=== PATIENT | female | born 1955 | race Caucasian/White ===

== ENCOUNTER → 2017-12-06 11:39 | Outpatient (CLI) | payer BC, SELFPAY ==
[2017-12-06 14:18] LABS: Absolute Lymphocyte Count 2.21 X10^3/ul (0.83-4.51); Absolute Neutrophil Count 3.6 X10^3/uL (2.0-7.7); Basophil# 0.04 X10^3/uL; Basophil% 0.6 % (0-1); Eosinophil# 0.23 X10^3/uL; Eosinophils% 3.5 % (0-5); Hematocrit 38.4 % (37-47); Lymphocyte # 2.21 X10^3/ul (4.0); Lymphocyte % 33.2 % (19-41); Mean Corp Hgb Conc 33.9 g/gl (32-36); Mean Corpuscular Hgb 30.9 pg (27.0-32.0); Mean Corpuscular Volume 91.2 fL (81-99); Mean Platelet Vol. 10.9 fl (6.2-12.0); Monocyte# 0.56 X10^3/uL; Monocyte% 8.4 % (0-10); Neutrophil # 3.59 X10^3/uL (2.7-7.7); Neutrophil % 53.8 % (47-70); POSITIVE COUNT NO; POSITIVE DIFFERENTIAL NO; POSITIVE MORPHOLOGY NO; Platelet Count 232 K/mm3 (150-450); RBC Distribution Width CV 12.9 % (11.6-14.6); RBC Distribution Width SD 42.1 fl (35.1-43.9); Red Blood Count 4.21 M/mm3 (4.2-5.4); White Blood Count 6.7 K/mm3 (4.4-11.0)
[2017-12-06 14:29] LABS: AST(SGOT) 24 U/L (15-37); Alanine Aminotransfer ALT/SGPT 33 U/L (13-56); Albumin, Serum 3.6 g/dL (3.2-5.0); Alkaline Phosphatase 73 U/L (45-117); Anion Gap 7 (5-15); BUN 20 mg/dL (7-18); BUN/Creat Ratio 22.7 RATIO (10-20); Calcium,Total 8.6 mg/dL (8.5-10.1); Chloride 103 mmol/L (98-107); Creatinine, Serum 0.88 mg/dL (0.55-1.02); EST Glomerular Filtration Rate 69 mL/min (>60); Est Glom Filt Rate - Afr Amer 83 mL/min (>60); Globulin 3.5 g/dL (2.2-4.2); Glucose 116 mg/dL (74-106); Potassium 3.6 mmol/L (3.5-5.1); Protein, Total 7.1 g/dL (6.4-8.2); Sodium Level 141 mmol/L (136-145)
== END ==
PROVIDERS: Family Provider Nurse Practitioner Family; PCP Nurse Practitioner Family; Visit Provider Internal Medicine Rheumatology
DX: L40.59 Other psoriatic arthropathy (principal); M79.7 Fibromyalgia; M18.11 Unilateral primary osteoarthritis of first carpometacarpal joint, right hand; M18.12 Unilateral primary osteoarthritis of first carpometacarpal joint, left hand; I10 Essential (primary) hypertension; E78.5 Hyperlipidemia, unspecified; K76.0 Fatty (change of) liver, not elsewhere classified; Z79.899 Other long term (current) drug therapy
CPT/HCPCS: 36415; 80053; 85025

== ENCOUNTER → 2018-05-19 11:57 | Outpatient (CLI) | payer BC, SELFPAY ==
[2018-05-19 14:04] LABS: Absolute Lymphocyte Count 1.94 X10^3/ul (0.83-4.51); Absolute Neutrophil Count 4.4 X10^3/uL (2.0-7.7); Basophil# 0.03 X10^3/uL; Basophil% 0.4 % (0-1); Eosinophil# 0.26 X10^3/uL; Eosinophils% 3.6 % (0-5); Hematocrit 39.3 % (37-47); Lymphocyte # 1.94 X10^3/ul (4.0); Lymphocyte % 27.2 % (19-41); Mean Corp Hgb Conc 33.1 g/gl (32-36); Mean Corpuscular Hgb 30.2 pg (27.0-32.0); Mean Corpuscular Volume 91.2 fL (81-99); Mean Platelet Vol. 10.8 fl (6.2-12.0); Monocyte# 0.49 X10^3/uL; Monocyte% 6.9 % (0-10); Neutrophil # 4.38 X10^3/uL (2.7-7.7); Neutrophil % 61.5 % (47-70); Platelet Count 258 K/mm3 (150-450); RBC Distribution Width CV 13.4 % (11.6-14.6); RBC Distribution Width SD 43.9 fl (35.1-43.9); Red Blood Count 4.31 M/mm3 (4.2-5.4); White Blood Count 7.1 K/mm3 (4.4-11.0)
[2018-05-19 14:06] LABS: POSITIVE COUNT NO; POSITIVE DIFFERENTIAL NO; POSITIVE MORPHOLOGY NO
[2018-05-19 14:12] LABS: ALB/GLOB Ratio 0.9 RATIO (0.9-2.4); AST(SGOT) 26 U/L (15-37); Alanine Aminotransfer ALT/SGPT 37 U/L (13-56); Albumin, Serum 3.6 g/dL (3.2-5.0); Alkaline Phosphatase 76 U/L (45-117); Anion Gap 8 (5-15); BUN 17 mg/dL (7-18); BUN/Creat Ratio 18.3 RATIO (10-20); Chloride 102 mmol/L (98-107); Cholesterol 146 mg/dL (200); Creatinine, Serum 0.93 mg/dL (0.55-1.02); EST Glomerular Filtration Rate 65 mL/min (>60); Est Glom Filt Rate - Afr Amer 78 mL/min (>60); Globulin 3.8 g/dL (2.2-4.2); Glucose 125 mg/dL (74-106); High Density Lipoprotein 35 mg/dL; Protein, Total 7.4 g/dL (6.4-8.2); Sodium Level 142 mmol/L (136-145); Triglycerides 166 mg/dL; Very Low Density Lipoprotein 33 mg/dL (5-40)
[2018-05-19 14:19] LABS: Hemoglobin A1c 6.1 % (4.2-6.3)
== END ==
PROVIDERS: Family Provider Nurse Practitioner Family; PCP Nurse Practitioner Family; Visit Provider Internal Medicine Rheumatology
DX: L40.59 Other psoriatic arthropathy (principal); M18.0 Bilateral primary osteoarthritis of first carpometacarpal joints; M79.7 Fibromyalgia; K76.0 Fatty (change of) liver, not elsewhere classified; I11.0 Hypertensive heart disease with heart failure; I50.9 Heart failure, unspecified; E11.9 Type 2 diabetes mellitus without complications; K57.90 Diverticulosis of intestine, part unspecified, without perforation or abscess without bleeding; E78.5 Hyperlipidemia, unspecified; I87.2 Venous insufficiency (chronic) (peripheral); Z79.899 Other long term (current) drug therapy
CPT/HCPCS: 36415; 80053; 80061; 83036; 85025

== ENCOUNTER → 2018-05-30 12:10 | Outpatient (CLI) | payer BC, SELFPAY ==
--- NOTE | 2018-05-30 12:14 | RAD_ITS ---
STUDY: X-RAY - PELVIS AND RIGHT HIP REASON FOR EXAM: Female, 63 years old. Pain. Fall. TECHNIQUE: Radiological exam, hip, unilateral, with pelvis when performed; 2 or 3 views. COMPARISON: None. FINDINGS: There is a non-specific bowel gas pattern. Normal visualized soft tissue structures. Normal bilateral iliac wings, sacroiliac joints and visualized sacrum. Normal bilateral superior and inferior pubic rami. Normal pubic symphysis. Normal bilateral ischial tuberosities. Normal visualized femoral head. Normal acetabulum. Normal hip joint. RAD/HIP, UNI W/ Pelvis 2-3 Views IMPRESSION: Normal x-ray examination of the pelvis and hip. Electronically Signed: Wesley Navarro MD at 23:18 EDT , Service support ,
== END ==
PROVIDERS: Family Provider Nurse Practitioner Family; PCP Nurse Practitioner Family; Referring Provider Internal Medicine Rheumatology; Visit Provider Internal Medicine Rheumatology
DX: L40.59 Other psoriatic arthropathy (principal); M18.0 Bilateral primary osteoarthritis of first carpometacarpal joints; M79.7 Fibromyalgia; Z79.899 Other long term (current) drug therapy
CPT/HCPCS: 73502

== ENCOUNTER → 2018-07-10 12:32 | Outpatient (CLI) | payer BC, SELFPAY ==
--- NOTE | 2018-07-10 12:37 | CDU_ITS ---
Reason For Study: DIZZINESS Rt. Velocities/BP Lt. Velocities/BP Prox CCA 84.2/9.3 cm/sec. Prox CCA 121.0/18.8 cm/sec. Mid CCA 106.0/15.7 cm/sec. Mid CCA 115.0/21.1 cm/sec. Dist CCA 92.0/12.9 cm/sec. Dist CCA 96.7/16.4 cm/sec. Prox ICA 103.0/16.5 cm/sec. Prox ICA 76.2/18.9 cm/sec. Mid ICA 82.7/14.1 cm/sec. Mid ICA 75.2/18.3 cm/sec. Dist ICA 96.2/24.6 cm/sec. Dist ICA 62.4/18.1 cm/sec. Rt. ICA/CCA = .97. Lt. ICA/CCA = .66. Prox ECA 134.0/12.6 cm/sec. Prox ECA 108.0/11.5 cm/sec. Rt. Vert. 52.8/12.3 cm/sec. Lt. Vert. 58.0/12.9 cm/sec. Right Extracranial There is heterogeneous, irregular atherosclerotic plaque noted in the right common carotid artery. There is heterogeneous, irregular atherosclerotic plaque noted in the right internal carotid artery. There is intimal thickening but no significant atherosclerotic plaque noted in the right external carotid artery. Antegrade flow is noted in the right vertebral artery. Left Extracranial There is intimal thickening but no significant atherosclerotic plaque noted in the left common carotid artery. There is heterogeneous, irregular atherosclerotic plaque noted in the left internal carotid artery. There is heterogeneous, smooth atherosclerotic plaque noted in the left external carotid artery. Antegrade flow is noted in the left vertebral artery. Procedure Carotid Duplex [id number]. Exam performed in department. Interpretation Summary Minimal plague at the proximal right internal carotid with <50% stenosis. Minimal plague within the left internal carotid with <50% stenosis. Normal flow bilateral external carotids Patent and antegrade vertebrals bilaterally Ordering Physician: Darcy Messina Referring Physician: Darcy Messina Performed By: Rubina Dowd RVT
== END ==
PROVIDERS: Family Provider Nurse Practitioner Family; PCP Nurse Practitioner Family; Referring Provider Physician Assistant Medical; Visit Provider Physician Assistant Medical
DX: R55 Syncope and collapse (principal); R42 Dizziness and giddiness; I10 Essential (primary) hypertension; E78.5 Hyperlipidemia, unspecified; I42.8 Other cardiomyopathies; R00.2 Palpitations
CPT/HCPCS: 93880

== ENCOUNTER → 2018-07-10 12:36 | Outpatient (REF) | payer BC, SELFPAY | LOC: CVS 12:36 | PROVIDERS: Family Provider Nurse Practitioner Family; PCP Nurse Practitioner Family; Referring Provider Physician Assistant Medical; Visit Provider Physician Assistant Medical | DX: R55 Syncope and collapse (principal) | CPT/HCPCS: 93270 ==

== ENCOUNTER 2018-08-11 11:24 | Day surgery (SDC) | payer BC, SELFPAY ==
[2018-08-07 09:27] LABS: Bacteria 0 SEEN /hpf (None Seen); Mucous, Urine 0 SEEN /hpf (<or=2+); Red Blood Cells-Urine 0 SEEN /hpf (0-5)
[2018-08-07 09:54] LABS: Hematocrit 40.2 % (37-47); Hemoglobin 13.1 g/dl (12.0-15.0); Mean Corp Hgb Conc 32.6 g/gl (32-36); Mean Corpuscular Hgb 29.4 pg (27.0-32.0); Mean Corpuscular Volume 90.1 fL (81-99); Mean Platelet Vol. 10.4 fl (6.2-12.0); Platelet Count 214 K/mm3 (150-450); RBC Distribution Width CV 13.8 % (11.6-14.6); RBC Distribution Width SD 45.2 fl (35.1-43.9); Red Blood Count 4.46 M/mm3 (4.2-5.4); White Blood Count 5.2 K/mm3 (4.4-11.0)
[2018-08-07 09:55] LABS: Scan Indicated on CBC? Y/N NO
[2018-08-07 09:59] LABS: Prothrombin Time (Protime)PT. 12.7 SECONDS (11.7-14.9)
--- NOTE | 2018-08-07 10:00 | RAD_ITS ---
STUDY: X-RAY CHEST REASON FOR EXAM: Female, 63 years old. Preoperative evaluation. TECHNIQUE: PA and lateral views of the chest. COMPARISON: Comparison is made with prior study dated March 04, 2017. FINDINGS: A loop recorder device is seen overlying the lower thoracic region. The lungs are clear and expanded. There is no demonstrated pleural abnormality. There is borderline cardiomegaly. Normal mediastinum and sarah. Normal visualized pulmonary arteries. There is atherosclerotic calcification of the aortic arch with tortuosity. There are diffuse degenerative changes of the visualized thoracic spine. Normal visualized ribs, clavicles, and shoulders. Surgical clips are seen in the epigastric region. RAD/Chest PA and Lateral IMPRESSION: Borderline cardiomegaly. Loop recording device is seen in the lower thoracic region. Electronically Signed: Ashkan Geiger MD at 12:42 EST Tel [phone], Service support ,
[2018-08-07 10:14] LABS: Color, Urine Yellow (Yellow); Glucose, Dipstick Normal (Normal); Ketone-Dipstick Negative (Negative); Leukocyte Esterase-Dipstick 100 /ul (Negative); Nitrite-Dipstick Negative (Negative); Occult Blood-Urine Negative /ul (Negative); Protein-Dipstick Negative (Negative); Urine Bilirubin Dipstick Negative (Negative); Urine Clarity Sl. Cloudy (Clear); Urine Urobilinogen Normal (Normal)
[2018-08-07 10:19] LABS: BUN 23 mg/dL (7-18); Creatinine, Serum 0.83 mg/dL (0.55-1.02); Glucose 233 mg/dL (74-106)
[2018-08-07 10:20] LABS: Anion Gap 8 (5-15); BUN/Creat Ratio 27.6 RATIO (10-20); Calcium,Total 8.7 mg/dL (8.5-10.1); Chloride 104 mmol/L (98-107); EST Glomerular Filtration Rate 73 mL/min (>60); Est Glom Filt Rate - Afr Amer 89 mL/min (>60); Potassium 3.9 mmol/L (3.5-5.1); Sodium Level 141 mmol/L (136-145)
[2018-08-07 10:24] LABS: Squamous Epithelial Cells - UA 0-5 SEEN /hpf (5-10); White Blood Cells 0-5 SEEN /hpf (0-5)
[2018-08-08 13:43] VITALS: BMI 37.9
[2018-08-11] VITALS (12 sets, daily range): BP systolic 124–155; BP diastolic 68–97; PULSE 64–68; RESP 14–18; TEMP 36.4–37.3; O2SAT 92–96; BMI 37.8
--- NOTE | 2018-08-11 16:06 | CL.IE_ITS ---
Patient: RICH EDUARDO Study Date: 08/11/2018 Performing: Cristino Villaseñor MD : 1955 Age: 63 Gender: female PROCEDURES PERFORMED [id number] PACER INSERT+DUAL LEADS INDICATIONS complete heart block PROCEDURE DETAILS The patient was brought to the Catheterization Lab in the postabsorptive nonsedated state. Infor med consent was obtained prior to the procedure. Local anesthetic was given subcutaneously to the le ft upper chest area with Lidocaine 2%. Incision was made to the left upper chest. A peel-away sheath was inserted into the left subclavian vein. PPM ventricular lead was inserted / positioned to right v entricular apex. A peel-away sheath was inserted into the left subclavian vein - 7fr. PPM atrial lead testing performed. The Ventricular PM lead sutured in place with 3-0 Silk. The Atrial lead sutured i n place with 3-0 Silk. Device pocket was irrigated with antibiotic- Bacitracin. PPM generator was att ached to the lead(s) and inserted into the pocket. Subcutaneous closure was completed with 3-0 Vicryl . Skin closure was completed with 4-0 Vicryl. The patient tolerated the procedure well. Estimated Blood Loss: 25 ml's IMPLANTED / EX-PLANTED DEVICES IMPLANTED DEVICE(S): PPM Ventricular lead - Census Taker: Medtronic, Model # [id number] , Serial # [id number] PPM Atrial lead - Census Taker: Medtronic, Model # Medtronic , Serial # [id number] PPM Generator - Census Taker: Medtronic, Model # Quiana XT DR THIERNO Frances [id number] , Serial # [id number] DEVICE PARAMETERS ATRIAL LEAD PARAMETERS: P wave- 3.5 (mV) Current- 3.6 (mA) threshold- 1.8 (V) impedence- 609 (OHMS) VENTRICULAR LEAD PARAMETERS: R wave- 7.5 (mV) Current- 0.3 (mA) threshold- 0.5 (V) impedence- 1721 (OHMS) DEVICE PARAMETERS: Mode- DDD Lower rate- 60 Upper rate- 130 CONCLUSIONS / RECOMMENDATIONS Device Conclusions: Successful implantation of a dual chamber pacemaker Device Recommendations: Follow up with Primary Care Physician PROCEDURE MEDICATIONS Versed 1 mg IV Fentanyl 50 mcg IV Versed 1 mg IV Fentanyl 25 mcg IV Versed 1 mg IV Fentanyl 25 mcg IV Oxygen: 2 L/min via nasal cannula Antibiotic given in appropriate timeframe. Signed By Cristino Villaseñor MD On 08/11/2018 16:05:53 Cristino Villaseñor MD
[2018-08-11] MEDS: Glimepiride 1 MG Tablet PO (18:13)
[2018-08-11] MEDS: Furosemide 40 MG Tablet PO (18:13)
[2018-08-11] MEDS: Gabapentin 600 MG Tablet PO (18:13)
[2018-08-11] MEDS: Atorvastatin Calcium 20 MG Tablet PO (22:38)
[2018-08-11] MEDS: Carvedilol 12.5 MG Tablet PO (22:38)
[2018-08-12 03:21] VITALS: PULSE 65
[2018-08-12] MEDS: Acetaminophen 325 MG Tablet PO (04:00)
[2018-08-12 04:04] VITALS: BP 140/70; PULSE 60; RESP 18; TEMP 36.6; O2SAT 95
--- NOTE | 2018-08-12 05:55 | RAD_ITS ---
STUDY: X-RAY CHEST REASON FOR EXAM: Female, 63 years old. Status post pacemaker, rule out pneumothorax TECHNIQUE: Single AP portable view of the chest. COMPARISON: 08/07/2018 FINDINGS: Left-sided chest wall pacemaker device has been placed. Appropriate repositioning. No evidence of pneumothorax. Lungs are mildly hypoinflated. There is borderline cardiomegaly. Normal mediastinum and sarah. Normal visualized pulmonary arteries. Normal visualized aortic arch and descending thoracic aorta. Normal visualized thoracic spine. Normal visualized ribs, clavicles, and shoulders. There is no demonstrated abnormality of the visualized soft tissue structures of the upper abdomen. RAD/Chest 1 View IMPRESSION: No evidence of pneumothorax. Left chest wall pacing device. Electronically Signed: Christopher Delgado DO at 7:51 EST Tel , Service support ,
--- NOTE | 2018-08-12 05:55 | RAD_ITS ---
STUDY: X-RAY CHEST REASON FOR EXAM: Female, 63 years old. Status post pacemaker, rule out pneumothorax TECHNIQUE: PA and lateral views of the chest. COMPARISON: 08/07/2018 FINDINGS: Left chest wall pacing device has been placed with appropriately positioning. There is no evidence of a pneumothorax. The lungs are clear and expanded. There is no demonstrated pleural abnormality. There is borderline cardiomegaly. Normal mediastinum and sarah. Normal visualized pulmonary arteries. Normal visualized aortic arch and descending thoracic aorta. Normal visualized thoracic spine. Normal visualized ribs, clavicles, and shoulders. There is no demonstrated abnormality of the visualized soft tissue structures of the upper abdomen. RAD/Chest PA and Lateral IMPRESSION: Clear lungs. Placement of left chest wall pacing device without clearly evident pneumothorax Electronically Signed: Christopher Delgado DO at 7:50 EST Tel , Service support ,
[2018-08-12 07:00] VITALS: PULSE 60
[2018-08-12 08:27] VITALS: BP 155/66; PULSE 63; RESP 16; TEMP 36.8; O2SAT 94
[2018-08-12] MEDS: DULoxetine Hcl 20 MG Capsule 60 MG PO (08:30)
[2018-08-12] MEDS: Lisinopril 5 MG Tablet PO (08:30)
[2018-08-12] MEDS: Furosemide 40 MG Tablet PO (08:30)
[2018-08-12] MEDS: Magnesium Oxide 400 MG Tablet PO (08:30)
[2018-08-12] MEDS: Gabapentin 600 MG Tablet PO (08:31)
[2018-08-12] MEDS: Glimepiride 1 MG Tablet PO (08:31)
[2018-08-12] MEDS: Carvedilol 12.5 MG Tablet PO (08:31)
[2018-08-12] MEDS: Aspirin 81 MG TAB.CHEW PO (08:31)
--- NOTE | 2018-08-12 08:33 | PCM.PN.CARD ---
Subjectve: Patient seen and evaluated. Appears to be doing well. Objective: Vital Signs Temp Pulse Resp BP Pulse Ox 98.2 F 63 16 155/66 H 94 08/12/18 08:27 08/12/18 08:27 08/12/18 08:27 08/12/18 08:27 08/12/18 08:27 Oxygen Delivery Method Room Air Weight: 234 lb 15.851 oz Body Mass Index (BMI) 37.8 Intake and Output for Last 24 Hours 08/10/18 08/11/18 08/12/18 23:59 23:59 23:59 Intake Total 240 / 240 480 / 480 Balance 240 / 240 480 / 480 General: Awake, Alert, Oriented x 3 HEENT: PERRL, EOMI, Sclera Non Icteric Neck: Supple, Good ROM, No Lymph Node Enlargement Lungs: Clear to auscultation Cardiovascular: Regular Rhythm, Normal S1, Normal S2, No Murmurs, No Rubs, No Gallops Vascular: No Carotid Bruits, Normal Femoral Pulses, Normal Radial Pulses, Normal Dorsalis Pedal Pulse, Normal Posterior Tibial Pulses Abdomen: Bowel Sounds Present, Soft, Non Tender, No HSM, No Organomegaly Extremities: No Cyanosis, No Clubbing, No edema Neurological: No Focal Motor or Sensory Deficit Rhythm: EKG: ECHO: Stress Test: Cardiac Cath: PCI: CT Surgery: Holter monitor: EPS: PPM: CXR: Chest CT Scan: Medical Necessity - Tobacco Use Smoking Status: Former smoker Tobacco Use: Non-smoker Assessment/Plan 1. Status post permanent pacemaker implantation Patient underwent permanent pacemaker implantation with no evidence of pneumothorax. Pacer check this morning demonstrates adequate pacer function. Will discharge for outpatient follow-up
--- NOTE | 2018-08-12 08:37 | DCINST_ITS ---
Discharge Diet: No Restrictions Discharge Activity: May Not Drive May resume sexual activity in: 2 weeks Call your doctor if your incision/area has: Continuous Slow Oozing, Sudden Increased Bleeding, Increased Pain/ Swelling, Increased Redness, Foul Smelling Discharge, Swelling at the incision site Call your doctor if you observe: Fever of 101 or Higher, Shortness of breath, Dizziness, Fainting spells, Swelling in the ankles, Chest pain, Prolonged hiccoughing, Increased palpitations (irregular heartbeat) Suture Line Care: Avoid Pulling/Pushing, Avoid Pinching/Bending Cleanse incision/area with: Do not get Incision Wet, Keep Dressing Clean & Dry Additional Dressing/Incision Instructions:: When dressing is removed, wash and dry incision. Keep covered with a light bandage if it is rubbing against your clothing. Do not cover the incision with an airtight bandage. Change the bandage daily. Do not remove steri strips. The strips will fall off on their own. Additional Instructions: Signs and Symptoms to Report to Your Doctor at Once - call your doctor's office or Doctor's Registry ([phone]) Call 611 or go to the nearest Emergency Department if you feel you need urgent care. *Infection (fever, increased redness or swelling at the incision site, drainage from the incision increased pain at the pacemaker site) *Shortness of breath *Dizziness *Fainting spells *Swelling in the ankles *Chest pain *Prolonged hiccoughing *Increased palpitaitons (irregular heartbeat) Medications: Take your pain medication as directed. Refer to your discharge instruction sheet for a list of medications you are to take. Allergies/Adverse Reactions: Allergies doxycycline [From Vibramycin] Allergy (Verified 08/07/18 10:39) Unknown Penicillins [PCN] Allergy (Verified 08/07/18 10:39) Hives clonidine Adverse Reaction (Verified 08/07/18 10:39) Vomiting codeine Adverse Reaction (Verified 08/07/18 10:39) Vomiting Medications to take at Discharge Glimepiride [Amaryl] 1 mg PO BID 12/28/16 Potassium Chloride 10 meq PO DAILY 12/28/16 Aspirin [Aspirin, Baby] 81 mg PO DAILY@0800 #90 tab.chew 12/31/16 Atorvastatin Calcium [Lipitor] 20 mg PO QHS #90 tab 12/31/16 Furosemide [Lasix] 40 mg PO BID@1000,1800 #90 tab 12/31/16 adalimumab 40 mg/0.8 mL subcutaneous syringe kit 40 mg SC Q2W 07/29/17 celecoxib 100 mg capsule 100 mg PO BID 07/29/17 carvedilol 12.5 mg tablet 12.5 mg PO BID #180 tab 01/21/18 lisinopril 5 mg tablet 5 mg PO DAILY #90 tab 01/21/18 cholecalciferol (vitamin D3) 5,000 unit capsule 5,000 unit PO DAILY 07/07/18 cyanocobalamin (vit B-12) 500 mcg tablet 500 mcg PO DAILY 07/07/18 duloxetine 20 mg capsule,delayed release 60 mg PO DAILY cap 07/07/18 flaxseed oil 1,000 mg capsule 1,000 mg PO DAILY 07/07/18 gabapentin 300 mg capsule 600 mg PO TID cap 07/07/18 magnesium oxide 400 mg capsule 400 mg PO DAILY cap 07/07/18 omeprazole 20 mg capsule,delayed release 20 mg PO BID cap 07/07/18 pyridoxine (vitamin B6) 50 mg capsule 100 mg PO DAILY cap 07/07/18 turmeric 400 mg capsule 800 mg PO DAILY cap 08/07/18 Primary Care Physician: Brittanie Wheeler NP-C [Primary Care Provider] - Test Results: Test results from this visit will be discussed in further detail at your follow- up appointment, if applicable. When: PACER CHECK 08/25 AT 9:30 AM Proposed Discharge Date: 08/12/18
--- OUTSIDE RECORDS SUMMARY | 2018-11-13 01:12 | XMS RPT_ITS ---
:1955 Author Organization [place] Support Name Relationship Address Phone BHUMI CASILLASITHA Unavailable [address] + [place] [id number] JHONNY EDUARDO Unavailable [address] + [place] [address] R Unavailable Unavailable Unavailable SONJA, MIRIAN Unavailable [address] + [place] [address] JHONNY EDUARDO Unavailable [address] + [place] [address] R Unavailable Unavailable Unavailable SONJA, MIRIAN Unavailable [address] + [place] [address] JHONNY EDUARDO Unavailable [address] + [place] [address] R Unavailable Unavailable Unavailable SONJA, MIRIAN Unavailable [address] + [place] [address] JHONNY EDUARDO Unavailable [address] + [place] [address] R Unavailable Unavailable Unavailable SONJA, MIRIAN Unavailable [address] + [place] [address] NEJHONNY SIMMONS Unavailable [address] + [place] [address] R Unavailable Unavailable Unavailable SONJA, MIRIAN Unavailable [address] + [place] [address] NEJHONNY SIMMONS Unavailable [address] + [place] [address] R Unavailable Unavailable Unavailable NEJHONNY SIMMONS Unavailable Unavailable + NETROY JHONNY Unavailable Unavailable + NETROY JHONNY Unavailable Unavailable + SONJA, MIRIAN Unavailable [address] + [place] [address] NEECE, JHONNY Unavailable [address] + [place] [address] R Unavailable Unavailable Unavailable SONJA, MIRIAN Unavailable [address] + [place] [address] NEECE, JHONNY Unavailable [address] + [place] [address] R Unavailable Unavailable Unavailable SONJA, MIRIAN Unavailable [address] + [place] [address] NEECE, JHONNY Unavailable [address] + [place] [address] R Unavailable Unavailable Unavailable SONJA, MIRIAN Unavailable [address] + [place] [address] NEECE, JHONNY Unavailable [address] + [place] [address] R Unavailable Unavailable Unavailable SONJA, MIRIAN Unavailable [address] + [place] [address] NEECE, JHONNY Unavailable [address] + [place] [address] R Unavailable Unavailable Unavailable NEECE, JHONNY Unavailable Unavailable + SONJA, MIRIAN Unavailable [address] + [place] [address] NEECE, JHONNY Unavailable [address] + [place] [address] R Unavailable Unavailable Unavailable NEECE, JHONNY Unavailable Unavailable + NEECE, JHONNY Unavailable Unavailable + SONJA, MIRIAN Unavailable [address] + [place] [address] NEECE, JHONNY Unavailable [address] + [place] [address] R Unavailable Unavailable Unavailable NEECE, JHONNY Unavailable Unavailable + SONJA, MIRIAN Unavailable [address] + [place] [address] NEECE, JHONNY Unavailable [address] + [place] [address] R Unavailable Unavailable Unavailable NEECE, JHONNY Unavailable Unavailable + NEECE, JHONNY Unavailable Unavailable + NEECE, JHONNY Unavailable Unavailable + NEECE, JHONNY Unavailable Unavailable + NEECE, JHONNY Unavailable Unavailable + NEECE, JHONNY Unavailable Unavailable + NEECE, JHONNY Unavailable Unavailable + NOT GIVEN Unavailable [address] + [place], [place] [id number] NEECE, JHONNY Unavailable Unavailable + NEECE, JHONNY Unavailable Unavailable + NOT GIVEN Unavailable [address] + [place], [place] [id number] NEECE, JHONNY Unavailable Unavailable + NOT GIVEN Unavailable [address] + [place], [place] [phone] NEECE, JHONNY Unavailable Unavailable + NOT GIVEN Unavailable [address] + [place], [place] [id number] NEECE, JHONNY Unavailable Unavailable + BHUMI CASILLASITHA Unavailable [address] + [place] [address] NEECE, JHONNY Unavailable [address] + [place] [address] R Unavailable Unavailable Unavailable SONJA, MIRIAN Unavailable [address] + [place] [address] NEECE, JHONNY Unavailable [address] + [place] [address] R Unavailable Unavailable Unavailable Care Team Providers Name Role Phone [place], Sarai January Admitting Unavailable [place], Sarai January Attending Unavailable [place], Sarai January Primary Care Unavailable [place], Sarai January Admitting Unavailable [place], Sarai January Attending Unavailable [place], Sarai January Primary Care Unavailable [place], Sarai January Admitting Unavailable [place], Sarai January Attending Unavailable [place], Sarai January Primary Care Unavailable [place], Sarai January Consulting Unavailable [place], Sarai January Attending Unavailable [place], Sarai January Primary Care Unavailable [place], Sarai January Admitting Unavailable [place], Sarai January Primary Care Unavailable Harish Orozco Admitting Unavailable Harish Orozco Attending Unavailable Wyatt Sharma Consulting Unavailable BloomingtonSarai January Primary Care Unavailable [place] Sarai January Admitting Unavailable [place], Sarai January Attending Unavailable [place] Sarai January Primary Care Unavailable Bloomingtona January Attending Unavailable BloomingtonSarai January Primary Care Unavailable BloomingtonJanuary Admitting Unavailable [place] Sarai January Attending Unavailable [place] Sarai January Primary Care Unavailable Salome Cottrell Admitting Unavailable Salome Cottrell Attending Unavailable BloomingtonJanuary Referring Unavailable BloomingtonSarai January Primary Care Unavailable [place] Sarai January Consulting Unavailable Kasi, [place] Attending Unavailable Kasi, Cristino Referring Unavailable [place], Sarai DRESS FITTER-C Primary Care Unavailable Salome Mason Attending Unavailable [place], Sarai DRESS FITTER-C Referring Unavailable Vellanki, Tessie Attending Unavailable Vellanki, Tessie Referring Unavailable [place], Sarai DRESS FITTER-C Primary Care Unavailable Kasi, [place] Attending Unavailable Mateus Whalen Referring Unavailable [place], Sarai DRESS FITTER-C Primary Care Unavailable Vellanki, Tessie Attending Unavailable Vellanki, Tessie Referring Unavailable [place], Sarai DRESS FITTER-C Primary Care Unavailable Marybeth Simpson Attending Unavailable [place], Sarai DRESS FITTER-C Referring Unavailable Kasi, Cristino Attending Unavailable Kasi, [place] Referring Unavailable [place], Sarai DRESS FITTER-C Primary Care Unavailable Kasi, [place] Consulting Unavailable Marybeth Simpson Attending Unavailable [place], Sarai DRESS FITTER-C Referring Unavailable Kasi, [place] Attending Unavailable Darcy Messina Referring Unavailable Kasi, Cristino Attending Unavailable Kasi, Cristino Referring Unavailable Vellanki, Tessie Attending Unavailable Vellanki, Tessie Referring Unavailable [place], Sarai DRESS FITTER-C Primary Care Unavailable Darcy Messina Attending Unavailable [place], Sarai DRESS FITTER-C Referring Unavailable Darcy Messina Attending Unavailable Darcy Messina Referring Unavailable [place], Sarai DRESS FITTER-C Primary Care Unavailable Darcy Messina Attending Unavailable Darcy Messina Referring Unavailable [place], Sarai DRESS FITTER-C Primary Care Unavailable Alex Tafoya Attending Unavailable Darcy Messina Referring Unavailable [place], Sarai DRESS FITTER-C Primary Care Unavailable Darcy Messina Consulting Unavailable Miya Duenas Attending Unavailable Aba Dutta Attending Unavailable Aba Dutta Admitting Unavailable Aba Dutta Admitting Unavailable Aba Dutta Attending Unavailable Aba Dutta Admitting Unavailable LeeAba long Attending Unavailable Aba Dutta Admitting Unavailable bAa Dutta Attending Unavailable SALOME COTTRELL MD. Attending Unavailable ABA DUTTA Attending Unavailable CRANE HILL SARAI JANUARY Primary Care Unavailable ABA DUTTA Attending Unavailable CRANE HILL SARAI JANUARY Primary Care Unavailable ABA DUTTA Attending Unavailable CRANE HILLSARAI JUNE Primary Care Unavailable ABA DUTTA Attending Unavailable CRANE HILL SARAI JUNE Primary Care Unavailable WYATT SHARMA Attending Unavailable CRANE HILL SARAI JANUARY Primary Care Unavailable WYATT SHARMA Attending Unavailable CRANE HILL SARAI JANUARY Primary Care Unavailable OLAYINKA SANCHEZ Attending Unavailable CRANE HILLSARAI JUNE Primary Care Unavailable WYATT SHARMA Attending Unavailable CRANE HILL SARAI JANUARY Primary Care Unavailable WYATT SHARMA Attending Unavailable CRANE HILL SARAI JANUARY Primary Care Unavailable GAEL GIBSON Attending Unavailable CRANE HILL SARAI JUNE Primary Care Unavailable WYATT SHARMA Attending Unavailable CRANE HILL SARAI JANUARY Primary Care Unavailable PROBLEMS PROBLEMS DATE TYPE CONDITION / CODE ATTENDING STATUS SOURCE Unknown I44.2 - Marybeth Simpson Active [facility] Atrioventricular Community block, complete / Hospital I44.2(ICD-10) Repository Unknown I45.5 - Other Marybeth Simpson Active [facility] 9 specified heart block Community / I45.5(ICD-10) Hospital Repository Unknown 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 - Other Marybeth Simpson Active [facility] 9 cardiomyopathies / Community I42.8(ICD-10) Hospital Repository Unknown Z95.0 - Presence of Marybeth Simpson Active [facility] 9 cardiac pacemaker / Community Z95.0(ICD-10) Hospital Repository Admitting Pain in left foot / WYATT SHARMA [place] [address] diagnosis M79.672(ICD-10) LONG Three Repository Unknown I10 - Essential Alex Tafoya Active [facility] 8 (primary) Community hypertension / Hospital I10(ICD-10) Repository Unknown R42 - Dizziness and Alex Tafoya Active [facility] giddiness / Community R42(ICD-10) Hospital Repository Unknown R00.2 - Palpitations Alex Tafoya Active [facility] / R00.2(ICD-10) [facility] Repository Unknown E78.5 - CebuAlex caldera Active [facility] 8 Hyperlipidemia, Community unspecified / Hospital E78.5(ICD-10) Repository Unknown R55 - Syncope and Kasi, Cristino Active [facility] 9 collapse / Community R55(ICD-10) Hospital Repository Admitting Displaced bimalleolar WYATT SHARMA [facility] 8 diagnosis fracture of left LONG Three lower leg, subsequent Repository encounter for closed fracture with routine healing / S82.842D(ICD-10) Admitting Unilateral primary WYATT SHARMA [facility] 8 diagnosis osteoarthritis, right [facility] Three hip / M16.11(ICD-10) Repository Unknown L40.59 - Other Vellantristan Tessie Active [facility] 8 psoriatic arthropathy Community / L40.59(ICD-10) Hospital Repository Unknown Z79.899 - Other long Veldustin Tessie Active [facility] 8 term (current) drug Community therapy / Hospital Z79.899(ICD-10) Repository Unknown M79.7 - Fibromyalgia Vellantristan Tessie Active [facility] 8 / M79.7(ICD-10) [facility] Hospital Repository Unknown M18.11 - Unilateral Vellanki, Tessie Active [facility] 8 primary Community osteoarthritis of Hospital first carpometacarpal Repository joint, right hand / M18.11(ICD-10) Unknown M18.12 - Unilateral Vellanki, Tessie Active [facility] 8 primary Community osteoarthritis of Hospital first carpometacarpal Repository joint, left hand / M18.12(ICD-10) Unknown L40.8 - Other Tessie Prasad Active [facility] psoriasis / Community L40.8(ICD-10) Hospital Repository Unknown K76.0 - Fatty (change Tessie Prasad Active [facility] 8 of) liver, not Community elsewhere classified Hospital / K76.0(ICD-10) Repository Unknown E11.9 - Type 2 Tessie Prasad Active [facility] 8 diabetes mellitus Community without complications Hospital / E11.9(ICD-10) Repository Unknown I50.9 - Heart Tessie Prasad Active [facility] 8 failure, unspecified Community / I50.9(ICD-10) Hospital Repository Unknown K57.90 - Tessie Prasad Active [facility] 8 Diverticulosis of Community intestine, part Hospital unspecified, without Repository perforation or abscess without bleeding / K57.90(ICD-10) Unknown I87.2 - Venous Tessie Prasad Active [facility] 8 insufficiency Community (chronic) Hospital (peripheral) / Repository I87.2(ICD-10) Admitting Encounter for ABA DUTTA [place] [address] diagnosis follow-up examination BASILIOLILLI Zhou after completed Repository treatment for conditions other than malignant neoplasm / Z09(ICD-10) Admitting Pain, unspecified / ABA DUTTA [place] [address] diagnosis R52(ICD-10) THELMA Zhou Repository Unknown E78.00 - Pure Kasi, [place] Active [facility] 8 hypercholesterolemia, Community unspecified / Hospital E78.00(ICD-10) Repository PROCEDURES PROCEDURES No Procedure Records FoundRESULTS RESULTS PACEMAKER CHECK Observed: 08/25/2018 Status: F Source: [place] 4:17 PM [facility] HOSPITAL REPOSITORY [facility] [address] [place], [place] [address]. [address] [place] [address] Pacemaker Check Date of Service: 08/25/18 1023 MR#: [id number] Acct: [id number] Name: RICH EDUARDO Jimena Rep #: [id number] : 1955 From: Marybeth Simpson Age/Sex: 63/F Location: [facility] Status: Signed Billing Codes PM Device Codes: PM Dev Rodolfo Uriostegui, Dual 08/25/18 1029 <Electronically signed by Marybeth Simpson > Date Marybeth Simpson 08/25/18 1617<Electronically signed by Darcy VICTOR> Cosigner Signature: Date (if applicable) Darcy Messina CC: DISCHARGE INSTRUCTION Observed: 08/12/2018 Status: F Source: [place] 8:37 AM [facility] [place] [facility] Medical Records Department [address] [place] [address] Instructions for Home/Discharge Instructions 08/12/18 0835 MR#: [id number] Acct: [id number] Name: RICH EDUARDO Rep #: [id number] : 1955 63 From: Cristino Villaseñor MD PCP: SHYAM Garcia Status: [facility] Discharge Diet: No Restrictions Discharge Activity: May Not Drive May resume sexual activity in: 2 weeks Call your doctor if your incision/area has: Continuous Slow Oozing, Sudden Increased Bleeding, Increased Pain/ Swelling, Increased Redness, Foul Smelling Discharge, Swelling at the incision site Call your doctor if you observe: Fever of 101 or Higher, Shortness of breath, Dizziness, Fainting spells, Swelling in the ankles, Chest pain, Prolonged hiccoughing, Increased palpitations (irregular heartbeat) Suture Line Care: Avoid Pulling/Pushing, Avoid Pinching/Bending Cleanse incision/area with: Do not get Incision Wet, Keep Dressing Clean AND Dry Additional Dressing/Incision Instructions:: When dressing is removed, wash and dry incision. Keep covered with a light bandage if it is rubbing against your clothing. Do not cover the incision with an airtight bandage. Change the bandage daily. Do not remove steri strips. The strips will fall off on their own. Additional Instructions: Signs and Symptoms to Report to Your Doctor at Once - call your doctor's office or Doctor's Registry ([phone]) Call 911 or go to the nearest Emergency Department if you feel you need urgent care. *Infection (fever, increased redness or swelling at the incision site, drainage from the incision increased pain at the pacemaker site) *Shortness of breath *Dizziness *Fainting spells *Swelling in the ankles *Chest pain *Prolonged hiccoughing *Increased palpitaitons (irregular heartbeat) Medications: Take your pain medication as directed. Refer to your discharge instruction sheet for a list of medications you are to take. Allergies/Adverse Reactions: Allergies doxycycline [From Vibramycin] Allergy (Verified 08/07/18 10:39) Unknown Penicillins [PCN] Allergy (Verified 08/07/18 10:39) Hives clonidine Adverse Reaction (Verified 08/07/18 10:39) Vomiting codeine Adverse Reaction (Verified 08/07/18 10:39) Vomiting Medications to take at Discharge Glimepiride [Amaryl] 1 mg PO BID 12/28/16 Potassium Chloride 10 meq PO DAILY 12/28/16 Aspirin [Aspirin, Baby] 81 mg PO DAILY@0800 #90 tab.chew 12/31/16 Atorvastatin Calcium [Lipitor] 20 mg PO QHS #90 tab 12/31/16 Furosemide [Lasix] 40 mg PO BID@1000,1800 #90 tab 12/31/16 adalimumab 40 mg/0.8 mL subcutaneous syringe kit 40 mg SC Q2W 07/29/17 celecoxib 100 mg capsule 100 mg PO BID 07/29/17 carvedilol 12.5 mg tablet 12.5 mg PO BID #180 tab 01/21/18 lisinopril 5 mg tablet 5 mg PO DAILY #90 tab 01/21/18 cholecalciferol (vitamin D3) 5,000 unit capsule 5,000 unit PO DAILY 07/07/18 cyanocobalamin (vit B-12) 500 mcg tablet 500 mcg PO DAILY 07/07/18 duloxetine 20 mg capsule,delayed release 60 mg PO DAILY cap 07/07/18 flaxseed oil 1,000 mg capsule 1,000 mg PO DAILY 07/07/18 gabapentin 300 mg capsule 600 mg PO TID cap 07/07/18 magnesium oxide 400 mg capsule 400 mg PO DAILY cap 07/07/18 omeprazole 20 mg capsule,delayed release 20 mg PO BID cap 07/07/18 pyridoxine (vitamin B6) 50 mg capsule 100 mg PO DAILY cap 07/07/18 turmeric 400 mg capsule 800 mg PO DAILY cap 08/07/18 Primary Care Physician: Sarai Wheeler NP-C [Primary Care Provider] - Test Results: Test results from this visit will be discussed in further detail at your follow-up appointment, if applicable. When: PACER CHECK 08/25 AT 9:30 AM Proposed Discharge Date: 08/12/18 08/12/18 0837 <Electronically signed by Cristino Villaseñor MD> Date Cristino Villaseñor MD CC: SHYAM Wheeler CHEST 1 VIEW Observed: 08/12/2018 Status: F Source: [place] 12:08 AM [facility] [place] [facility] Imaging Services [address] [place] [address] Chest 1 View MR#: [id number] Acct: [id number] Name: RICH EDUARDO Rep #: [id number] : 1955 F 63 From: Christopher Delgado DO PCP: SHYAM Garcia Status: [facility] Study: Chest 1 View Date of Exam: 08/12/18 Exam# [id number] Ordering Dr: Cristino Villaseñor MD STUDY: X-RAY CHEST REASON FOR EXAM: Female, 63 years old. Status post pacemaker, rule out pneumothorax TECHNIQUE: Single AP portable view of the chest. COMPARISON: 08/07/2018 FINDINGS: Left-sided chest wall pacemaker device has been placed. Appropriate repositioning. No evidence of pneumothorax. Lungs are mildly hypoinflated. There is borderline cardiomegaly. Normal mediastinum and sarah. Normal visualized pulmonary arteries. Normal visualized aortic arch and descending thoracic aorta. Normal visualized thoracic spine. Normal visualized ribs, clavicles, and shoulders. There is no demonstrated abnormality of the visualized soft tissue structures of the upper abdomen. RAD/Chest 1 View IMPRESSION: No evidence of pneumothorax. Left chest wall pacing device. Electronically Signed: Christopher Delgado DO at 7:51 EST Tel , Service support , CC: SHYAM Wheeler; Cristino Villaseñor MD Remote Sensing Advisor: Signed CHEST PA AND LATERAL Observed: 08/12/2018 Status: F Source: [place] 12:01 AM [facility] [place] [facility] Imaging Services [address] [place] [address] Chest PA and Lateral MR#: [id number] Acct: [id number] Name: RICH EDUARDO Rep #: [id number] : 1955 F 63 From: Christopher Delgado DO PCP: SHYAM Garcia Status: [facility] Study: Chest PA and Lateral Date of Exam: 08/12/18 Exam# [id number] Ordering Dr: Cristino Villaseñor MD STUDY: X-RAY CHEST REASON FOR EXAM: Female, 63 years old. Status post pacemaker, rule out pneumothorax TECHNIQUE: PA and lateral views of the chest. COMPARISON: 08/07/2018 FINDINGS: Left chest wall pacing device has been placed with appropriately positioning. There is no evidence of a pneumothorax. The lungs are clear and expanded. There is no demonstrated pleural abnormality. There is borderline cardiomegaly. Normal mediastinum and sarah. Normal visualized pulmonary arteries. Normal visualized aortic arch and descending thoracic aorta. Normal visualized thoracic spine. Normal visualized ribs, clavicles, and shoulders. There is no demonstrated abnormality of the visualized soft tissue structures of the upper abdomen. RAD/Chest PA and Lateral IMPRESSION: Clear lungs. Placement of left chest wall pacing device without clearly evident pneumothorax Electronically Signed: Christopher Delgado DO at 7:50 EST Tel , Service support , CC: SHYAM Wheeler; Cristino Villaseñor MD Remote Sensing Advisor: Signed CBC-COMPLETE BLOOD CNT Collected: 08/11/2018 Status: F Source: [place] NO DIFF 1:00 PM [facility] [place] TYPE CODE TESTS RESULT OUT OF RANGE REFERENCE UNITS LAB L100.1000 4.4-11.0 K/mm3 Normal WBC 5.2 LAB L100.1200 4.2-5.4 M/mm3 Normal RBC 4.46 LAB L100.1300 12.0-15.0 g/dl Normal HGB 13.1 LAB L100.1400 37-47 % Normal HCT 40.2 LAB L100.1500 81-99 fL Normal MCV 90.1 LAB L100.1600 27.0-32.0 pg Normal MCH 29.4 LAB L100.1700 32-36 g/gl Normal MCHC 32.6 LAB L100.1810 11.6-14.6 % Normal RDW CV 13.8 LAB L100.1820 35.1-43.9 fl High RDW SD 45.2 LAB L100.1900 150-450 K/mm3 Normal PLT 214 LAB L100.2000 6.2-12.0 fl Normal MPV 10.4 Performed By: #### L100.0500 #### [facility] [address] [place], [place], [address] PROTHROMBIN TIME W/INR Collected: 08/11/2018 Status: F Source: [place] 1:00 PM [facility] [place] TYPE CODE TESTS RESULT OUT OF RANGE REFERENCE UNITS LAB L300.4150 11.7-14.9 SECONDS Normal PROTIME 12.7 LAB L300.4200 Normal INR 1.0 Performed By: #### L300.3900 #### [facility] [address] [place], [place], [address] BASIC METABOLIC Collected: 08/11/2018 Status: F Source: [place] PROFILE (BMP) 1:00 PM [facility] [place] TYPE CODE TESTS RESULT OUT OF RANGE REFERENCE UNITS LAB L501.0100 74-106 mg/dL High GLU 233 Result Comment: Glucose result greater than or equal to 200 mg/dL suggests DIABETES MELLITUS per A.D.A. criteria. Please note revised GLUCOSE reference range effective 2017. LAB L501.1000 7-18 mg/dL High BUN 23 LAB L501.1100 0.55-1.02 mg/dL Normal CREAT,SERUM 0.83 Result Comment: The validity of the calculated GFR AND GFRAA in patients over 70 years has not been determined. Clinical correlation is essential. LAB L501.1110 >60 mL/min Normal EST GFR 73 Result Comment: Non- GFR Calc LAB L501.1115 >60 mL/min Normal EST GFR - AA 89 Result Comment: GFR Calc LAB L501.1300 10-20 RATIO High BUN/CRE 27.6 LAB L501.2200 8.5-10.1 mg/dL CA Normal 8.7 LAB L501.5300 136-145 mmol/L NA Normal 141 LAB L501.5600 3.5-5.1 mmol/L K Normal 3.9 LAB L501.5900 98-107 mmol/L CL Normal 104 LAB L501.6100 21.0-32.0 mmol/L Normal CO2 29.0 LAB L501.6200 5-15 Normal GAP 8 Performed By: #### L500.2500 #### [facility] [address] [place], [address] URINALYSIS, COMPLETE Collected: 08/11/2018 Status: F Source: [place] 1:00 PM [facility] [place] Order Comment: How was Urine Obtained? ATG ARCHITECT TO SPECIFY TYPE CODE TESTS RESULT OUT OF RANGE REFERENCE UNITS LAB L400.3000 Yellow COLOR Normal Yellow LAB L400.3050 Clear Normal CLARITY Sl. Cloudy LAB L400.3200 Normal mg/dl Normal GLUCOSE, UR Normal LAB L400.3300 Negative mg/dL Normal BILIRUBIN URINE Negative LAB L400.3400 Negative mg/dl Normal KETONE UR Negative LAB L400.3465 1.002-1.030 Normal SP.GR. DIPSTX 1.020 LAB L400.3550 5.0 - 8.0 pH UR Normal 6.0 LAB L400.3600 Negative mg/dl PROT Normal DIPSTX Negative LAB L400.3700 Normal mg/dl Normal UROBILI Normal LAB L400.3750 Negative Normal NITRITE UR Negative LAB L400.3780 Negative /ul Normal OCCULT BLOOD-UR Negative LAB L400.3800 Negative /ul High LEUK ESTERASE 100 LAB L400.4050 0-5 /hpf WBC Normal 0-5 SEEN LAB L400.4100 0-5 /hpf 0 Normal RBC-UA SEEN LAB L400.4150 5-10 /hpf SQUAM Normal EPI 0-5 SEEN LAB L400.4300 None Seen /hpf 0 Normal BACTERIA SEEN LAB L400.4350 <or=2+ /hpf 0 Normal MUCUS, URINE SEEN Performed By: #### L400.0001 #### [facility] [place], [address] PACEMAKER CHECK Observed: 08/09/2018 Status: F Source: [place] 11:46 AM [facility] [place] [facility] [address] [place] [address]. [address] [place] [address] Pacemaker Check Date of Service: 08/07/18 1135 MR#: [id number] Acct: [id number] Name: RICH EDUARDO Rep #: [id number] : 1955 From: Marybeth Simpson Age/Sex: 63/F Location: [facility] Status: Signed Comments Summary Comments: Wriiten and verbal instructions given to patient on PPM implant scheduled for 08/11/18. All pt questions answered. Labwork and CXR completed this AM. Pt has o.v today with SHYAM Gamino to update H AND Beto Simpson RN Device Device Date Interviewed: 08/07/18 Follow-up Location: in office Interview Reason: scheduled follow up 08/07/18 1140 <Electronically signed by Marybeth Calvin > Date Marybeth Calvin 08/09/18 1146<Electronically signed by Cristino Villaseñor MD> Cosigner Signature: Date (if applicable) Cristino Villaseñor MD CC: CHEST PA AND LATERAL Observed: 08/07/2018 Status: F Source: [place] 9:45 AM [facility] [place] [facility] Imaging Services [address] [place] [address] Chest PA and Lateral MR#: [id number] Acct: [id number] Name: RICH EDUARDO Rep #: [id number] : 1955 F 63 From: Ashkan Geiger MD PCP: SHYAM Garcia Status: [facility] Study: Chest PA and Lateral Date of Exam: 08/07/18 Exam# [id number] Ordering Dr: Cristino Villaseñor MD STUDY: X-RAY CHEST REASON FOR EXAM: Female, 63 years old. Preoperative evaluation. TECHNIQUE: PA and lateral views of the chest. COMPARISON: Comparison is made with prior study dated March 04, 2017. FINDINGS: A loop recorder device is seen overlying the lower thoracic region. The lungs are clear and expanded. There is no demonstrated pleural abnormality. There is borderline cardiomegaly. Normal mediastinum and sarah. Normal visualized pulmonary arteries. There is atherosclerotic calcification of the aortic arch with tortuosity. There are diffuse degenerative changes of the visualized thoracic spine. Normal visualized ribs, clavicles, and shoulders. Surgical clips are seen in the epigastric region. RAD/Chest PA and Lateral IMPRESSION: Borderline cardiomegaly. Loop recording device is seen in the lower thoracic region. Electronically Signed: Ashkan Geiger MD at 12:42 EST Tel [phone], Service support , CC: SHYAM Wheeler; Cristino Villaseñor MD Remote Sensing Advisor: Signed XR FOOT LEFT 3+ VIEWS Observed: 07/30/2018 Status: F Source: [place] ([place] 12:00 AM [facility] REPOSITORY 3 views left foot reveals small calcaneal spur otherwise normal Dictated by: WYATT SHARMA on SatJul 30, 2018 7:12:59 PM EST Transcribed by: WYATT SHARMA on SatJul 30, 2018 7:12:59 PM EST Finalized by: WYATT SHARMA on SatJul 30, 2018 7:12:59 PM EST XR ANKLE RIGHT 3+ Observed: 07/30/2018 Status: F Source: [place] [facility] VIEWS (STANDARD) 12:00 AM [facility] REPOSITORY 3 views right ankle reveals healed bimalleolar ankle fracture without complication Dictated by: WYATT SHARMA on SatJul 30, 2018 7:13:23 PM EST Transcribed by: WYATT SHARMA on SatJul 30, 2018 7:13:23 PM EST Finalized by: WYATT SHARMA on SatJul 30, 2018 7:13:23 PM EST CAROTID DUPLEX Observed: 07/10/2018 Status: F Source: [place] ULTRASOUND 6:30 PM [facility] [place] [facility] Cardiovascular Services [address] [place] [address] Carotid Duplex Ultrasound 07/10/18 1238 MR#: [id number] Acct: [id number] Name: RICH EDUARDO Rep #: [id number] : 1955 63 From: Alex Tafoya MD Attending Dr: Darcy Messina Status: REG CLI Ordering Dr: Darcy Messina Date: 07/10/18 Location: [facility] Sex: F C Admitted: Reason For Study: DIZZINESS Rt. Velocities/BP Lt. Velocities/BP Prox CCA 84.2/9.3 cm/sec. Prox CCA 121.0/18.8 cm/sec. Mid CCA 106.0/15.7 cm/sec. Mid CCA 115.0/21.1 cm/sec. Dist CCA 92.0/12.9 cm/sec. Dist CCA 96.7/16.4 cm/sec. Prox ICA 103.0/16.5 cm/sec. Prox ICA 76.2/18.9 cm/sec. Mid ICA 82.7/14.1 cm/sec. Mid ICA 75.2/18.3 cm/sec. Dist ICA 96.2/24.6 cm/sec. Dist ICA 62.4/18.1 cm/sec. Rt. ICA/CCA = .97. Lt. ICA/CCA = .66. Prox ECA 134.0/12.6 cm/sec. Prox ECA 108.0/11.5 cm/sec. Rt. Vert. 52.8/12.3 cm/sec. Lt. Vert. 58.0/12.9 cm/sec. Right Extracranial There is heterogeneous, irregular atherosclerotic plaque noted in the right common carotid artery. There is heterogeneous, irregular atherosclerotic plaque noted in the right internal carotid artery. There is intimal thickening but no significant atherosclerotic plaque noted in the right external carotid artery. Antegrade flow is noted in the right vertebral artery. Left Extracranial There is intimal thickening but no significant atherosclerotic plaque noted in the left common carotid artery. There is heterogeneous, irregular atherosclerotic plaque noted in the left internal carotid artery. There is heterogeneous, smooth atherosclerotic plaque noted in the left external carotid artery. Antegrade flow is noted in the left vertebral artery. Procedure Carotid Duplex [id number]. Exam performed in department. Interpretation Summary Minimal plague at the proximal right internal carotid with <50% stenosis. Minimal plague within the left internal carotid with <50% stenosis. Normal flow bilateral external carotids Patent and antegrade vertebrals bilaterally Ordering Physician: Darcy Messina Referring Physician: Darcy Messina Performed By: Rubina Dowd RVT 07/10/181828 Date Alex Tafoya MD CC: SHYAM Wheeler; Darcy Messina Date Dictated: 07/10/18 1238 Date Transcribed: 07/10/181828 Remote Sensing Advisor: Signed CARDIOLOGY VISIT Observed: 07/08/2018 Status: F Source: [place] REPORT 2:31 PM [facility] [place] [facility] [address] [place] [address] OFFICE VISIT Date of Service: 07/07/18 MR#: [id number] Acct: [id number] Name: RICH EDUARDO Rep #: [id number] : 1955 Provider: Darcy Messina Age/Sex: 63/F Location: [facility] Status: Signed HPI HPI Details: RICH EDUARDO, is a 63 F who presents to the office today for for an urgent appointment at the request of her primary care doctor for increased shortness of breath. Patient was hospitalized in March for a dizzy/near syncopal event in which she fractured her ankle. She did require surgery to repair her ankle. Hospital notes indicate that she has had vertigo in the past. She has a history of nonischemic cardiomyopathy, hypertension and hyperlipidemia. Pt sts that she had 2 events. She had one near syncope and one syncope. The one in March she sts that she did have LOC. She sts that that the first event in october where she had a near syncopal event she just didnt feel good. She had her BP taken during this time and it was okay. The second time where she had LOC she felt okay that day, she was walking out to feed her dogs, she felt really dizzy while she was walking, she awoke on the ground. She does have lightheadedness- this occurs approx once a week. She does also have positional dizziness. She does not have any chest pain/heaviness/tightness. She does not have any worsening SOB. She has noted that she has had some fluttering- she had this last week but not while she was dizzy. She does not have any edema. 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 Accompanied by: None Is patient in pain?: No Allergies doxycycline [From Vibramycin] Allergy (Verified 07/07/18 15:15) Unknown Penicillins [PCN] Allergy (Verified 07/07/18 15:15) Hives clonidine Adverse Reaction (Verified 07/07/18 15:15) Vomiting codeine Adverse Reaction (Verified 07/07/18 15:15) Vomiting Medications Glimepiride [Amaryl] 1 mg PO BID 12/28/16 [History Confirmed 07/07/18] Potassium Chloride 10 meq PO DAILY 12/28/16 [History Confirmed 07/07/18] Aspirin [Aspirin, Baby] 81 mg PO DAILY@0800 #90 tab.chew 12/31/16 [Rx Confirmed 07/07/18] Atorvastatin Calcium [Lipitor] 20 mg PO QHS #90 tab 12/31/16 [Rx Confirmed 07/07/18] Furosemide [Lasix] 40 mg PO BID@1000,1800 #90 tab 12/31/16 [Rx Confirmed 07/07/18] adalimumab 40 mg/0.8 mL subcutaneous syringe kit 40 mg SC Q2W 07/29/17 [History Confirmed 07/07/18] celecoxib 100 mg capsule 100 mg PO BID 07/29/17 [History Confirmed 07/07/18] carvedilol 12.5 mg tablet 12.5 mg PO BID #180 tab 01/21/18 [Rx Confirmed 07/07/18] lisinopril 5 mg tablet 5 mg PO DAILY #90 tab 01/21/18 [Rx Confirmed 07/07/18] cholecalciferol (vitamin D3) 5,000 unit capsule 5,000 unit PO DAILY 07/07/18 [History Confirmed 07/07/18] cyanocobalamin (vit B-12) 500 mcg tablet 500 mcg PO DAILY 07/07/18 [History Confirmed 07/07/18] duloxetine 20 mg capsule,delayed release 60 mg PO DAILY cap 07/07/18 [History Confirmed 07/07/18] flaxseed oil 1,000 mg capsule 1,000 mg PO DAILY 07/07/18 [History Confirmed 07/07/18] gabapentin 300 mg capsule 600 mg PO TID cap 07/07/18 [History Confirmed 07/07/18] magnesium oxide 400 mg capsule 400 mg PO DAILY cap 07/07/18 [History Confirmed 07/07/18] omeprazole 20 mg capsule,delayed release 20 mg PO BID cap 07/07/18 [History Confirmed 07/07/18] pyridoxine (vitamin B6) 50 mg capsule 100 mg PO DAILY cap 07/07/18 [History Confirmed 07/07/18] Ejection fraction %: 40 to 44 PFSH Medical History Hyperlipidemia (Chronic) Essential (primary) hypertension (Chronic) Non-ischemic cardiomyopathy (Chronic) LBBB (left bundle branch block) (Chronic) COPD (chronic obstructive pulmonary disease) (Chronic) Diverticulosis (Inactive) Systolic CHF (Inactive) Surgical History History of open reduction and internal fixation (ORIF) procedure (Chronic) History of carpal tunnel release of both wrists (Resolved) History of section (Resolved) History of foot surgery (Resolved) History of tonsillectomy (Resolved) History of cholecystectomy (Resolved) History of hysterectomy (Resolved) Hx of appendectomy (Resolved) Family History Mother , at age 77 from [place] Myocardial infarction Social History Smoking Status: Former smoker how long ago did patient quit smokin years ago alcohol intake: never substance use type: does not use caffeine: Yes Type: tea Number of servings: 1 what type of physical activity do you participate in: none seatbelt use: always do you feel safe at home: Yes ROS Const Const: Negative for weakness, fatigue, fever(s) or headache(s) Eyes Eyes: Negative for blind spots, loss of peripheral vision or transient loss of vision ENT ENT: Positive for dizziness; negative for headache(s), tinnitus or Nosebleed/epistaxis Cardio Chest Pain: No Palpitations: Yes Edema: None Muscle aches with walking: None Resp Respiratory: Negative for SOB with activity, SOB at rest, SOB orthopnea\SOB lying down or Cough GI GI: Negative nausea, vomiting, heartburn or vomiting blood/hematemesis : Negative for hematuria Musc Musc: Negative for muscle aches/ myalgia Neuro Neuro: Positive for dizziness, near syncope, syncope and lightheadedness; negative for weakness, headache(s) or orthostatic symptoms [place] Hematologic/Lymphatic: Negative for easy bleeding Endo Endo: Negative for fatigue Cardiology Exam Const Appearance: cooperative, healthy appearing, well developed, well groomed and no acute distress Nutritional Appearance: well nourished and average body habitus Orientation: alert, awake and oriented x3 Head Head: normal to inspection, normocephalic and atraumatic Ears: hearing grossly normal bilaterally and external ears normal Nose: external nose normal, nasal mucous membranes and turbinates normal, nares normal, septum normal, no nasal discharge Face and Sinus: face symmetric Mouth: oral mucosae normal, tongue normal, oropharynx normal and moist mucous membranes Teeth and gingiva: dentition normal Throat: posterior oropharynx normal, tonsils normal and uvula midline Eyes General: appearance normal, both eyes and all related structures Eyelids: eyelids normal Conjunctivae: conjunctivae normal Pupils: PERRL, normal by confrontation and accommodation normal EOM: EOM intact bilaterally Neck Neck: normal visual inspection, trachea midline and no JVD JVD: +5 Carotids: normal carotid upstroke and bounding pulses Chest Chest inspection: normal inspection of the chest, symmetric chest movement and normal respiratory effort Auscultation: Bilateral: Clear to Auscultation Cardio Palpation: normal PMI Rate: regular rate Rhythm: regular rhythm Heart sounds: S1 normal, S2 normal and normal, physiologic split S2; negative rub, gallop or murmur GI GI: normal to inspection, soft, no hepatosplenomegaly and bowel sounds present Neuro General: alert, awake, oriented x3, no focal sensory deficit, gait normal and moves all extremities Skin Skin: no rashes or lesions noted Extremities Pulses: Normal: Right Femoral Pulse, Left Femoral Pulse, Right Dorsalis Pedis Pulse, Left Dorsalis Pedis Pulse, Right Posterior Tibial Pulse, Left Posterior Tibial Pulse, Right Radial Pulse, Left Radial Pulse Lower Extremity Edema: None: Bilateral Musculoskel Musculoskeletal: No joint tenderness Psych Psychological: normal affect Supplemental Info Heart catheterization during her hospital in 2017 demonstrated normal coronary arteries. Echocardiogram demonstrated an ejection fraction of 40% with moderate concentric LVH. Assessment AND Plan 1. Syncope, unspecified syncope type R55 Plan - VALENTE Boyer Patient had a syncopal event in the near syncopal event earlier this year. Would like to obtain a carotid ultrasound and a 30-day event monitor based upon patient's symptoms. Will follow up with patient after testing is complete. Orders Orders: 2. Non-ischemic cardiomyopathy I42.8 Plan - VALENTE Boyer Patient does not have any symptoms of congestive heart failure. She will continue with current aggressive medical management. We will continue to monitor by history, exam and echocardiograms as deemed appropriate. Orders Orders: 3. Essential hypertension I10 Plan - VALENTE Boyer Adequately controlled on current medications. Will not make any adjustments. Orders Orders: 4. Pure hypercholesterolemia E78.00 Plan - VALENTE Boyer Patient is on low-dose statin. Recent lipid profile demonstrates a total cholesterol 146, HDL 35, LDL 78. Will not make any adjustments. 5. LBBB (left bundle branch block) I44.7 Plan - VALENTE Boyer Stable, will continue to monitor. We are obtaining a 30-day event monitor for her near syncopal and syncopal event. Plan Detail Other Orders Orders: Additional Comments - VALENTE Boyer The above patient was discussed with Dr. Villaseñor, he agrees with plan of care. Thank you for allowing us to participate in patient's plan of care, if you have any questions please do not hesitate to call. This note was generated using a voice recognition system and there may be incorrect words, spelling or punctuation errors that were not noted when reviewing the office note prior to saving. Follow Up 6 Weeks (MMM) Coding Level of Care Code Off vis,est,level 4 Diagnoses Syncope, unspecified syncope type R55 Syncope type: unspecified Non-ischemic cardiomyopathy I42.8 Essential hypertension I10 Pure hypercholesterolemia E78.00 Hyperlipidemia type: pure hypercholesterolemia LBBB (left bundle branch block) I44.7 Coding Level of Care Code Off vis,est,level 4 Diagnoses Syncope, unspecified syncope type R55 Syncope type: unspecified Non-ischemic cardiomyopathy I42.8 Essential hypertension I10 Pure hypercholesterolemia E78.00 Hyperlipidemia type: pure hypercholesterolemia LBBB (left bundle branch block) I44.7 07/07/18 1550 <Electronically signed by Darcy Messina PA> Date Darcy VICTOR 07/08/18 1431<Electronically signed by Cristino Villaseñor MD> Cosigner Signature: Date (if applicable) Cristino Villaseñor MD CC: DRESS FITTER-C Sarai Wheeler XR ANKLE RIGHT 3+ Observed: 06/18/2018 Status: F Source: [facility] (STANDARD) 12:00 AM THREE REPOSITORY 3 views right ankle reveals healing bimalleolar ankle fracture with internal fixation in good position Dictated by: WYATT SHARMA on SatJun 18, 2018 6:58:18 PM EDT Transcribed by: WYATT SHARMA on SatJun 18, 2018 6:58:18 PM EDT Finalized by: WYATT SHARMA on SatJun 18, 2018 6:58:18 PM EDT HIP, UNI W/ PELVIS Observed: 05/30/2018 Status: F Source: [place] 2-3 VIEWS 12:15 PM [facility] [place] [facility] Imaging Services [address] [place] [address] HIP, UNI W/ Pelvis 2-3 Views MR#: [id number] Acct: [id number] Name: RICH EDUARDO Rep #: [id number] : 1955 F 63 From: Wesley Navarro MD PCP: SHYAM Garcia Status: REG CLI Study: HIP, UNI W/ Pelvis 2-3 Views Date of Exam: 05/30/18 Exam# [id number] Ordering Dr: Tessie Prasad MD STUDY: X-RAY - PELVIS AND RIGHT HIP REASON FOR EXAM: Female, 63 years old. Pain. Fall. TECHNIQUE: Radiological exam, hip, unilateral, with pelvis when performed; 2 or 3 views. COMPARISON: None. FINDINGS: There is a non-specific bowel gas pattern. Normal visualized soft tissue structures. Normal bilateral iliac wings, sacroiliac joints and visualized sacrum. Normal bilateral superior and inferior pubic rami. Normal pubic symphysis. Normal bilateral ischial tuberosities. Normal visualized femoral head. Normal acetabulum. Normal hip joint. RAD/HIP, UNI W/ Pelvis 2-3 Views IMPRESSION: Normal x-ray examination of the pelvis and hip. Electronically Signed: Wesley Navarro MD at 23:18 EDT , Service support , CC: SHYAM Wheeler; Tessie Prasad MD Remote Sensing Advisor: Signed XR ANKLE RIGHT 3+ Observed: 05/22/2018 Status: F Source: [facility] VIEWS (STANDARD) 12:00 AM THREE REPOSITORY 3 views right ankle reveals anatomic reduction of the mortise with healing lateral and medial malleolar fractures Dictated by: WYATT SHARMA on SatMay 22, 2018 5:31:37 PM EDT Transcribed by: WYATT SHARMA on SatMay 22, 2018 5:31:37 PM EDT Finalized by: WYATT SHARMA on [facility] May 22, 2018 5:31:37 PM EDT CBC W/DIFF, AUTOMATED Collected: 05/19/2018 Status: F Source: [place] 12:00 PM [facility] [place] Order Comment: BETTY ORDERED CMP AND CBCD SUM[place] ORDERED LIPID AND HA1C TYPE CODE TESTS RESULT OUT OF RANGE REFERENCE UNITS LAB L100.1000 4.4-11.0 K/mm3 Normal WBC 7.1 LAB L100.1200 4.2-5.4 M/mm3 Normal RBC 4.31 LAB L100.1300 12.0-15.0 g/dl Normal HGB 13.0 LAB L100.1400 37-47 % Normal HCT 39.3 LAB L100.1500 81-99 fL Normal MCV 91.2 LAB L100.1600 27.0-32.0 pg Normal MCH 30.2 LAB L100.1700 32-36 g/gl Normal MCHC 33.1 LAB L100.1810 11.6-14.6 % Normal RDW CV 13.4 LAB L100.1820 35.1-43.9 fl Normal RDW SD 43.9 LAB L100.1900 150-450 K/mm3 Normal PLT 258 LAB L100.2000 6.2-12.0 fl Normal MPV 10.8 LAB L100.2100 47-70 % Normal NEUT% 61.5 LAB L100.2200 19-41 % Normal LY% 27.2 LAB L100.2300 0-10 % Normal MONO% 6.9 LAB L100.2400 0-5 % Normal EO% 3.6 LAB L100.2500 0-1 % Normal BASO% 0.4 LAB L100.2550 0.0-0.9 % Normal IM GRAN % 0.400 Result Comment: IG% - Immature Granulocytes (promyelocytes, myelocytes and metamyelocytes) > 1% indicates that a LEFT SHIFT is Present. LAB L100.2620 2.0-7.7 X10 3/uL Normal Absolute Neut 4.4 LAB L100.2720 0.83-4.51 X10 3/ul Normal Absolute Lymph 1.94 Performed By: #### L100.0100 #### [facility] [address] [place], [address] COMPREHENSIVE METABOLIC Collected: 05/19/2018 Status: F Source: [facility] 12:00 PM [facility] [place] Order Comment: BETTY ORDERED CMP AND CBCD SUMMER ORDERED LIPID AND HA1C TYPE CODE TESTS RESULT OUT OF RANGE REFERENCE UNITS LAB L501.0100 74-106 mg/dL High GLU 125 Result Comment: Fasting Glucose result from 100 to 125 mg/dL suggests IMPAIRED HOMEOSTASIS per A.D.A. criteria. Please note revised GLUCOSE reference range effective 2017. LAB L501.1000 7-18 mg/dL Normal BUN 17 LAB L501.1100 0.55-1.02 mg/dL Normal CREAT,SERUM 0.93 Result Comment: The validity of the calculated GFR AND GFRAA in patients over 70 years has not been determined. Clinical correlation is essential. LAB L501.1110 >60 mL/min Normal EST GFR 65 Result Comment: Non- GFR Calc LAB L501.1115 >60 mL/min Normal EST GFR - AA 78 Result Comment: GFR Calc LAB L501.1300 10-20 RATIO Normal BUN/CRE 18.3 LAB L501.1500 6.4-8.2 g/dL T Normal PROT 7.4 LAB L501.1800 3.2-5.0 g/dL Normal ALB 3.6 LAB L501.1950 2.2-4.2 g/dL Normal GLOB 3.8 LAB L501.2000 0.9-2.4 RATIO Normal A/G 0.9 LAB L501.2200 8.5-10.1 mg/dL CA Normal 9.0 LAB L501.4100 15-37 U/L Normal AST 26 LAB L501.4305 45-117 U/L Normal ALK P 76 LAB L501.4405 13-56 U/L Normal ALT 37 LAB L501.4600 0.20-1.00 mg/dL T Normal BILI 0.50 LAB L501.5300 136-145 mmol/L NA Normal 142 LAB L501.5600 3.5-5.1 mmol/L K Normal 4.0 LAB L501.5900 98-107 mmol/L CL Normal 102 LAB L501.6100 21.0-32.0 mmol/L Normal CO2 32.0 LAB L501.6200 5-15 Normal GAP 8 Performed By: #### L500.4050, L500.4100 #### [facility] [facility] [place], [address] LIPID PROFILE Collected: 05/19/2018 Status: F Source: [place] 12:00 PM [facility] [place] Order Comment: BETTY ORDERED CMP AND CBCD SUM[place] ORDERED LIPID AND HA1C TYPE CODE TESTS RESULT OUT OF RANGE REFERENCE UNITS LAB L501.4900 200 mg/dL Normal CHOL 146 Result Comment: <200 mg/dL Desirable 200-240 mg/dL Borderline >240 mg/dL High Risk LAB L501.5000 mg/dL Normal TRIG 166 Result Comment: The drugs N-Acetylcysteine and Metamizole may falsely depress this assay. Serum Triglycerides Reference Interval Normal <150 mg/dL Borderline high 150 - 199 mg/dL High 200 - 499 mg/dL Very High > or = 500 mg/dL LAB L501.6400 mg/dL Low HDL 35 Result Comment: The drugs N-Acetylcysteine and Metamizole may falsely depress this assay. Reference Range HDL <40 mg/dL Low HDL Cholesterol HDL >or= 60 mg/dL High HDL Cholesterol LAB L501.6500 0-130 mg/dL Normal LDL 78 LAB L501.6600 5-40 mg/dL Normal VLDL 33 Performed By: #### L500.4050, L500.4100 #### [facility] [address] [place], [address] HEMOGLOBIN A1C Collected: 05/19/2018 Status: F Source: [place] 12:00 PM [facility] [place] Order Comment: BETTY ORDERED CMP AND CBCD SUM[place] ORDERED LIPID AND HA1C TYPE CODE TESTS RESULT OUT OF RANGE REFERENCE UNITS LAB L501.9985 4.2-6.3 % Normal HGB A1C 6.1 Performed By: #### L501.9985 #### [facility] [address] [facility] [place], [address] XR ANKLE RIGHT 3+ Observed: 04/17/2018 Status: F Source: [facility] (STANDARD) 12:00 AM THREE REPOSITORY 3 views right ankle reveals anatomic reduction of the mortise bimalleolar ankle fracture with internal fixation and hardware in good position Dictated by: WYATT SHARMA on SatApr 17, 2018 11:03:24 AM EDT Transcribed by: WYATT SHARMA on SatApr 17, 2018 11:03:24 AM EDT Finalized by: WYATT SHARMA on SatApr 17, 2018 11:03:24 AM EDT GLUCOSE POC Collected: 04/04/2018 Status: F Source: [place] 11:[address] [facility] REPOSITORY TYPE CODE TESTS RESULT OUT OF REFERENCE UNITS RANGE LAB [id number](LO 70-99 mg/dL INC) High Glucose POC 132 Performed By: #### [id number] #### [facility] Subsection [address] [place] [address] GLUCOSE POC Collected: 04/04/2018 Status: F Source: [place] 7:[address] [facility] REPOSITORY TYPE CODE TESTS RESULT OUT OF REFERENCE UNITS RANGE LAB [id number](LO 70-99 mg/dL INC) High Glucose POC 150 Performed By: #### [id number] #### [facility] [address]section [address] [place] [address] GLUCOSE POC Collected: 04/03/2018 Status: F Source: [place] 8:[address] [facility] REPOSITORY TYPE CODE TESTS RESULT OUT OF REFERENCE UNITS RANGE LAB [id number](LO 70-99 mg/dL INC) High Glucose POC 222 Performed By: #### [id number] #### [facility] [address] [place] [address] GLUCOSE POC Collected: 04/03/2018 Status: F Source: [place] 4:[address] [facility] REPOSITORY TYPE CODE TESTS RESULT OUT OF REFERENCE UNITS RANGE LAB [id number](LO 70-99 mg/dL INC) High Glucose POC 181 Performed By: #### [id number] #### [facility] [address]section [address] [place] [address] GLUCOSE POC Collected: 04/03/2018 Status: F Source: [place] 11:30 AM [facility] REPOSITORY TYPE CODE TESTS RESULT OUT OF RANGE REFERENCE UNITS LAB [id number](LO 70-99 mg/dL INC) Normal Glucose POC 99 Performed By: #### [id number] #### [facility] [address]section [address] [place] [address] CBC W/ AUTO DIFF Collected: 04/03/2018 Status: F Source: [facility] 9:[address] [facility] REPOSITORY TYPE CODE TESTS RESULT OUT OF RANGE REFERENCE UNITS LAB [id number](L 3.6-11.0 E3/mcL OINC) Normal WBC 6.5 LAB [id number](L 3.90-5.40 E6/mcL OINC) Normal RBC 4.07 LAB [id number](L 12.0-16.0 G/DL OINC) Normal Hgb 12.7 LAB 79128317(L 36.0-48.0 % OINC) Normal Hct 37.8 LAB 82733552(L 11.5-14.5 % OINC) Normal RDW 13.4 LAB 55234170(L 27.0-31.0 pg OINC) High MCH 31.3 LAB 20642721(L 33.0-37.0 G/DL OINC) Normal MCHC 33.7 LAB 66135353(L 78.0-100.0 fL OINC) Normal MCV 92.9 LAB 70651496(L 7.4-11.0 fL OINC) Normal MPV 8.9 LAB [id number](L 130-400 E3/mcL OINC) Normal Platelet 204 Performed By: #### [id number] #### ARLETH Rem[employer] [address] [place], [place] [id number] AUTO DIFF Collected: 04/03/2018 Status: F Source: [facility] 9:[address] [facility] REPOSITORY Order Comment: Order Added by Discern Expert. TYPE CODE TESTS RESULT OUT OF RANGE REFERENCE UNITS LAB [id number](L 37.0-75.0 % OINC) Normal Neutro Auto 57.4 LAB 65603426(L 20.0-55.0 % OINC) Normal Lymph Auto 30.0 LAB 70779940(L 0.0-10.0 % OINC) Normal Catron Auto 8.3 LAB 07769342(L 0.0-11.0 % OINC) Normal Eos Auto 3.8 LAB 30913263(L 0.0-2.0 % OINC) Normal Basophil Auto 0.5 LAB 69687331(L 1.4-6.5 E3/mcL OINC) Normal Neutro 3.8 Absolute LAB 21194654(L 1.2-3.4 E3/mcL OINC) Normal Lymph Absolute 2.0 LAB 27065051(L 0.0-0.7 E3/mcL OINC) Normal Catron Absolute 0.5 LAB 56317004(L 0.0-0.7 E3/mcL OINC) Normal Eos Absolute 0.2 LAB 18009616(L 0.0-0.2 E3/mcL OINC) Normal Basophil 0.0 Absolute Performed By: #### [id number] #### ARLETH [employer] [address] [place], [place] [address] TROPONIN-I Collected: 04/03/2018 Status: F Source: [facility] 9:[address] [facility] REPOSITORY TYPE CODE TESTS RESULT OUT OF RANGE REFERENCE UNITS LAB [id number](LO .00-.03 ng/mL INC) Normal .02 Troponin-I Performed By: #### [id number] #### ARLETH [employer] [address] [place], [place] [address] CK Collected: 04/03/2018 Status: F Source: [facility] 9:28 AM [facility] REPOSITORY TYPE CODE TESTS RESULT OUT OF RANGE REFERENCE UNITS LAB [id number](LO 26-140 Int._Unit/L INC) High Total CK 438 Performed By: #### [id number] #### ARLETH [employer] [address] [place] [address] CKMB Collected: 04/03/2018 Status: F Source: [facility] 9:28 AM [facility] REPOSITORY TYPE CODE TESTS RESULT OUT OF RANGE REFERENCE UNITS LAB [id number](LO 0.0-5.0 ng/mL INC) Abnormal Alert CK MB 7.3 Result Comment: Critical Result CKMB: Called to: TYLOR WOLF at: 10:07:54 by:[facility] Read back by:TYLOR WOLF Performed By: #### [id number] #### ARLETH [employer] [address] [place] [address] BMP Collected: 04/03/2018 Status: F Source: [facility] 9:[address] [facility] REPOSITORY TYPE CODE TESTS RESULT OUT OF RANGE REFERENCE UNITS LAB [id number](L 70-99 mg/dL OINC) High Glucose Lvl 102 LAB 29198115(L 7-18 mg/dL OINC) High BUN 19 LAB 2653996(LO 0.6-1.3 mg/dL INC) Normal Creatinine 0.9 LAB 97843573(L 5.4-30.0 ratio OINC) Normal BUN/Creat Ratio 21.1 LAB 11541854(L 8.4-10.2 mg/dL OINC) Low Calcium Lvl 8.2 LAB 78582217(L 136-145 mEq/L OINC) Sodium Normal Lvl 136 LAB 82777204(L 3.5-5.1 mEq/L OINC) Low Potassium Lvl 3.4 LAB 27517535(L 98-107 mEq/L OINC) Chloride Normal 98 LAB 84035431(L 24.0-30.0 mEq/L OINC) CO2 Normal 29.8 Performed By: #### [id number] #### ARLETH [employer] [address] [place] [address] EGFR Collected: 04/03/2018 Status: F Source: [facility] 9:28 AM [facility] REPOSITORY Order Comment: Order added by Discern Expert. TYPE CODE TESTS RESULT OUT OF RANGE REFERENCE UNITS LAB 59486153(LO mL/min/1.73 INC) m2 Normal eGFR >60 LAB 18734766(LO mL/min/1.73 INC) m2 Normal eGFR AA >60 Performed By: #### [id number] #### ARLETH [facility] [place] [address] CK Collected: 04/03/2018 Status: F Source: [facility] 4:[address] [facility] REPOSITORY TYPE CODE TESTS RESULT OUT OF RANGE REFERENCE UNITS LAB 57673079(LO 26-140 Int._Unit/L INC) High Total CK 353 Performed By: #### [id number] #### [place] [address] CKMB Collected: 04/03/2018 Status: F Source: [facility] 4:[address] [facility] REPOSITORY TYPE CODE TESTS RESULT OUT OF RANGE REFERENCE UNITS LAB 65102007(LO 0.0-5.0 ng/mL INC) Abnormal Alert CK MB 6.7 Result Comment: Critical Result CKMB: Called to: MONICA VARGAS at: 05:42:46 by:[facility] Read back by:MONICA VARGAS Performed By: #### [id number] #### [place] [address] GLUCOSE POC Collected: 04/02/2018 Status: F Source: [facility] 10:[address] [facility] REPOSITORY TYPE CODE TESTS RESULT OUT OF REFERENCE UNITS RANGE LAB 53475100(LO 70-99 mg/dL INC) High Glucose POC 121 Performed By: #### [id number] #### ARLETH POC Subsection [address] [place] [address] CBC W/ AUTO DIFF Collected: 04/02/2018 Status: F Source: [facility] 10:[address] [facility] REPOSITORY TYPE CODE TESTS RESULT OUT OF RANGE REFERENCE UNITS LAB [id number](L 3.6-11.0 E3/mcL OINC) Normal WBC 8.5 LAB 94177549(L 3.90-5.40 E6/mcL OINC) Normal RBC 4.26 LAB 22319679(L 12.0-16.0 G/DL OINC) Normal Hgb 13.2 LAB 99357986(L 36.0-48.0 % OINC) Normal Hct 39.0 LAB 29396858(L 11.5-14.5 % OINC) Normal RDW 13.3 LAB 14980654(L 27.0-31.0 pg OINC) Normal MCH 31.0 LAB 66150691(L 33.0-37.0 G/DL OINC) Normal MCHC 33.8 LAB 49462759(L 78.0-100.0 fL OINC) Normal MCV 91.6 LAB 45587005(L 7.4-11.0 fL OINC) Normal MPV 8.9 LAB [id number](L 130-400 E3/mcL OINC) Normal Platelet 230 Performed By: #### [id number] #### ARLETH Shea [address] [place] [address] AUTO DIFF Collected: 04/02/2018 Status: F Source: [facility] 10:[address] [facility] REPOSITORY Order Comment: Order Added by Discern Expert. TYPE CODE TESTS RESULT OUT OF RANGE REFERENCE UNITS LAB [id number](L 37.0-75.0 % OINC) Normal Neutro Auto 61.2 LAB 15756880(L 20.0-55.0 % OINC) Normal Lymph Auto 26.2 LAB 12079519(L 0.0-10.0 % OINC) Normal Catron Auto 8.5 LAB 15854599(L 0.0-11.0 % OINC) Normal Eos Auto 3.6 LAB 17061599(L 0.0-2.0 % OINC) Normal Basophil Auto 0.5 LAB 46581824(L 1.4-6.5 E3/mcL OINC) Normal Neutro 5.2 Absolute LAB 50328632(L 1.2-3.4 E3/mcL OINC) Normal Lymph Absolute 2.2 LAB 93786613(L 0.0-0.7 E3/mcL OINC) Normal Catron Absolute 0.7 LAB 88879868(L 0.0-0.7 E3/mcL OINC) Normal Eos Absolute 0.3 LAB 37439279(L 0.0-0.2 E3/mcL OINC) Normal Basophil 0.0 Absolute Performed By: #### [id number] #### ARLETH [employer] [address] [place] [address] PT Collected: 04/02/2018 Status: F Source: [facility] 10:20 PM [facility] REPOSITORY TYPE CODE TESTS RESULT OUT OF RANGE REFERENCE UNITS LAB [id number](LO 1.0-1.2 INC) Normal INR 1.0 Result Comment: INR Recommended Therapeuptic Ranges: Prophylaxis/treatment of DVT and PE?2.0-3.0 Prevention of systemic embolism?.2.0-3.0 Mechanical prosthetic values?2.5-3.5 CRITICAL VALUES?.>4.0 LAB 98667743(LOINC) 11.6-14.6 second(s) Normal 12.1 PT Performed By: #### [id number] #### ARLETH Hematology Automated Subsection [address] [place] [address] PTT Collected: 04/02/2018 Status: F Source: [facility] 10:[address] [facility] REPOSITORY TYPE CODE TESTS RESULT OUT OF RANGE REFERENCE UNITS LAB [id number](LO 23.2-36.4 second(s) INC) Normal PTT 26.9 Performed By: #### [id number] #### ARLETH Hematology Automated Subsection [address] [place] [address] PTT CONTROL RATIO Collected: 04/02/2018 Status: F Source: [facility] 10:20 PM [facility] REPOSITORY Order Comment: Order added by Discern Expert. TYPE CODE TESTS RESULT OUT OF RANGE REFERENCE UNITS LAB 81836132(LO 0.8-1.2 ratio INC) Normal PTT Ratio 0.9 Performed By: #### [id number] #### ARLETH Hematology Automated Subsection [address] [place] [address] BMP Collected: 04/02/2018 Status: F Source: [facility] 10:20 PM [facility] REPOSITORY TYPE CODE TESTS RESULT OUT OF RANGE REFERENCE UNITS LAB [id number](L 70-99 mg/dL OINC) High Glucose Lvl 139 LAB 32525059(L 8.4-10.2 mg/dL OINC) Calcium Normal Lvl 9.3 LAB 14601138(L 136-145 mEq/L OINC) Sodium Normal Lvl 138 LAB 65245379(L 3.5-5.1 mEq/L OINC) Normal Potassium Lvl 3.6 LAB 18162393(L 98-107 mEq/L OINC) Chloride Normal 98 LAB 60499529(L 24.0-30.0 mEq/L OINC) CO2 Normal 29.9 LAB 18831381(L 7-18 mg/dL OINC) High BUN 22 LAB 5534762(LO 0.6-1.3 mg/dL INC) Normal Creatinine 1.0 LAB 91525969(L 5.4-30.0 ratio OINC) Normal BUN/Creat Ratio 22.0 Performed By: #### [id number] #### ARLETH [facility] [address] [place] [address] MAGNESIUM Collected: 04/02/2018 Status: F Source: [facility] 10:[address] [facility] REPOSITORY TYPE CODE TESTS RESULT OUT OF RANGE REFERENCE UNITS LAB 11427687(L 1.7-2.8 mg/dL OINC) Normal Magnesium 1.9 Performed By: #### [id number] #### ARLETH [facility] [place] [address] EGFR Collected: 04/02/2018 Status: F Source: [facility] 10:[address] [facility] REPOSITORY Order Comment: Order added by Discern Expert. TYPE CODE TESTS RESULT OUT OF RANGE REFERENCE UNITS LAB [id number](LO mL/min/1.73 INC) m2 Normal eGFR 56 LAB 05130454(LO mL/min/1.73 INC) m2 Normal eGFR AA >60 Performed By: #### [id number] #### ARLETH [facility] [address] [place] [address] TROPONIN-I Collected: 04/02/2018 Status: F Source: [facility] 10:[address] [facility] REPOSITORY TYPE CODE TESTS RESULT OUT OF RANGE REFERENCE UNITS LAB 54451217(LO .00-.03 ng/mL INC) Normal .02 Troponin-I Performed By: #### [id number] #### ARLETH [employer] [address] [place] [address] CKMB Collected: 04/02/2018 Status: F Source: [facility] 10:[address] [facility] REPOSITORY TYPE CODE TESTS RESULT OUT OF RANGE REFERENCE UNITS LAB [id number](LO 0.0-5.0 ng/mL INC) Abnormal Alert CK MB 5.2 Result Comment: Critical Result CKMB: Called to: GAEL SEWELL at: 22:48:50 by:ESTRELLA Read back by:GAEL SEWELL Performed By: #### [id number] #### ARLETH [employer] [address] [place] [address] CK Collected: 04/02/2018 Status: F Source: [facility] 10:[address] [facility] REPOSITORY TYPE CODE TESTS RESULT OUT OF RANGE REFERENCE UNITS LAB [id number](LO 26-140 Int._Unit/L INC) High Total CK 271 Performed By: #### [id number] #### ARLETH [facility] [facility] [place] [id number] XR CHEST AP PORTABLE Observed: 04/02/2018 Status: F Source: [facility] 9:[address] [facility] REPOSITORY Exam Date/Time: 04/02/2018 22:07 EDT Reason for Exam: Chest pain Report STUDY: XR Chest AP Portable; 04/02/2018 10:07 pm INDICATION: Chest pain. COMPARISON: 06/28/2014 ACCESSION NUMBER(S): [id number] ORDERING CLINICIAN: Kristine Davenport FINDINGS: There is magnification of the cardiac silhouette secondary to AP technique. Atherosclerotic calcification in the thoracic aorta. No focal airspace consolidation or pleural effusion. No pneumothorax. Multilevel degenerative change of the thoracic spine. IMPRESSION: No airspace consolidation or pleural effusion. FINAL REPORT Dictated: 04/02/2018 11:18 pm Jhonny Hyman MD Signed (Electronic Signature): 04/02/2018 11:18 pm Signed by: Jhonny Hyman MD Technologist: ART XR HIP 2-3 VIEWS Observed: 04/02/2018 Status: F Source: [facility] LEFT + PELVIS 9:53 PM [facility] REPOSITORY Exam Date/Time: 04/02/2018 22:07 EDT Reason for Exam: Pain, Traumatic Report STUDY: XR Hip 2-3 Views Left + Pelvis; 04/02/2018 10:07 pm INDICATION: Pain, Traumatic. COMPARISON: None. ACCESSION NUMBER(S): [id number] ORDERING CLINICIAN: Kristine Davenport FINDINGS: AP pelvis and AP and lateral views of the left hip were obtained. No evidence of acute displaced pelvic or left hip fracture. There is mild bilateral hip osteoarthrosis. Degenerative change of pubic symphysis. Degenerative change of the imaged lower lumbar spine. There is diffuse osteopenia. Calcific densities in the pelvis compatible with phleboliths. IMPRESSION: No evidence of acute displaced pelvic or left hip fracture. If the patient is acutely unable to bear weight or pain increases, cross-sectional imaging is recommended to exclude radiographically occult fracture. FINAL REPORT Dictated: 04/02/2018 11:20 pm Jhonny Hyman MD Signed (Electronic Signature): 04/02/2018 11:20 pm Signed by: Jhonny Hyman MD Technologist: ANMOL XR ANKLE 3+ VIEWS Observed: 04/02/2018 Status: F Source: [facility] 9:[address] [facility] REPOSITORY Exam Date/Time: 04/02/2018 22:07 EDT Reason for Exam: Injury Report STUDY: XR Ankle 3+ Views Right; 04/02/2018 10:07 pm INDICATION: Injury. COMPARISON: None. ACCESSION NUMBER(S): [id number] ORDERING CLINICIAN: Kristine Davenport FINDINGS: There is acute fracture of the medial malleolus and acute fracture of the distal right fibula. The ankle mortise is grossly intact. There is osteopenia. Diffuse soft tissue swelling of the ankle. IMPRESSION: Acute fractures of the medial malleolus and distal right fibula. Diffuse soft tissue swelling of the ankle. FINAL REPORT Dictated: 04/02/2018 11:22 pm Jhonny Hyman MD Signed (Electronic Signature): 04/02/2018 11:22 pm Signed by: Jhonny Hyman MD Technologist: ANMOL UA COMPLETE Collected: 04/02/2018 Status: F Source: [facility] 9:[address] [facility] REPOSITORY TYPE CODE TESTS RESULT OUT OF RANGE REFERENCE UNITS LAB [id number]( Yellow LOINC) Normal UA Color Straw LAB 82689224( Clear LOINC) UA Clarity Abnormal SltCloudy LAB 90713281( Negative LOINC) Normal UA Glucose Negative LAB 69007467( Negative LOINC) Normal UA Bili Negative LAB 81262219( Negative LOINC) Normal UA Ketones Negative LAB 70588902( 1.003-1.030 LOINC) Normal UA Spec Grav 1.008 LAB 23058591( 4.6-8.0 LOINC) Normal UA pH 5.0 LAB 07615178( Negative LOINC) Normal UA Protein Negative LAB 42461527( mg/dL LOINC) Normal UA Urobilinogen Negative LAB 41321096( Negative LOINC) Normal UA Nitrite Negative LAB 41642218( Negative LOINC) Normal UA Blood Negative LAB 96686396( Negative LOINC) UA Leuk Est 3+ Abnormal LAB 47187518( 0-5 /HPF LOINC) UA WBC Abnormal 5-10 LAB 40893839( 0-5 /HPF LOINC) UA Squam Abnormal Epithelial 5-10 LAB 43167592( Trace /LPF LOINC) UA Mucous Abnormal Trace Performed By: #### [id number] #### ARLETH Urinalysis Automated Subsection [address] [place] [address] Observed: 04/02/2018 Status: F Source: [facility] C URINE 9:[address] [facility] REPOSITORY Final Report: Rare Normal skin tabatha isolated Performed By: #### [id number] #### ARLETH Microbiology Subsection [facility] [place] [address] CT HEAD OR BRAIN W/O Observed: 04/02/2018 Status: F Source: [facility] CONTRAST 9:[address] [facility] REPOSITORY Exam Date/Time: 04/02/2018 21:53 EDT Reason for Exam: Syncope Report STUDY: CT Head or Brain w/o Contrast; 04/02/2018 9:53 pm INDICATION: Syncope. COMPARISON: None ACCESSION NUMBER(S): [id number] ORDERING CLINICIAN: Kristine Davenport TECHNIQUE: Contiguous axial images of the head were obtained without intravenous contrast. FINDINGS: The examination is limited secondary to patient motion. BRAIN PARENCHYMA:There is cerebral atrophy and chronic periventricular white matter small vessel ischemic change. The ugalde white matter differentiation is preserved. No mass effect or midline shift. HEMORRHAGE: No evidence of acute intracranial hemorrhage. VENTRICLES AND EXTRA-AXIAL SPACES:The ventricles are within normal limits in size for brain volume. No evidence of abnormal extraaxial fluid collection. EXTRACRANIAL SOFT TISSUES:Within normal limits. PARANASAL SINUSES/MASTOIDS:The visualized paranasal sinuses and mastoid air cells are clear and well pneumatized. CALVARIUM:No evidence of depressed calvarial fracture. OTHER FINDINGS:None IMPRESSION: Cerebral atrophy and chronic periventricular white matter small vessel ischemic change. No evidence of acute intracranial hemorrhage. FINAL REPORT Dictated: 04/02/2018 9:59 pm Jhonny Hyman MD Signed (Electronic Signature): 04/02/2018 9:59 pm Signed by: Jhonny Hyman MD Technologist: AM GLUCOSE, POC Collected: 03/11/2018 Status: F Source: [facility] 1:23 PM [facility] REPOSITORY TYPE CODE TESTS RESULT OUT OF RANGE REFERENCE UNITS LAB GLUX 80-115 mg/dL Normal Glucose, 107 POC Performed By: #### GLUX #### Unless otherwise noted, all testing [place] [address] CLIA: [id number] Kiln Burner Helper: Ming Perry M.D. OPERATION-PROCEDURE Observed: 03/11/2018 Status: F Source: [facility] 11:01 AM [facility] [place] [address] NAME RICH EDUARDO [facility] [id number] 1955 DATE 03/11/2018 OPERATIVE REPORT / PROCEDURE NOTE SURGEON ABA DUTTA MD PREOPERATIVE DIAGNOSIS Right trigger thumb. POSTOPERATIVE DIAGNOSIS Right trigger thumb. OPERATIONS Release A1 trace, right thumb. ENVIRONMENTAL HEALTH OFFICER HALLE Lyn ANESTHESIA General with pneumatic tourniquet. FINDINGS Patient is a 63-year-old female with a symptomatic trigger thumb on the right side. There was a palpable nodule on the A1 trace. At the time of surgery, the nodule was visible as well as palpable and the A1 trace was tight and, when released, the tendon, FPL, could glide through it smoothly without catching, clicking or triggering. OPERATIVE TECHNIQUE Understanding the risks, complications, potential benefits, and agreeing to proceed with surgery, the patient was brought into the operating theater, underwent a general anesthetic and endotracheal intubation. Pneumatic tourniquet was placed on the right proximal arm and set at 250 mmHg. The hand and arm were washed with alcohol, prepped with ChloraPrep, and draped in a standard sterile orthopedic fashion. A time-out was performed. The arm was elevated and the tourniquet inflated. A slightly oblique incision a centimeter in length was made over the A1 trace of the right thumb and carried down in the subcutaneous tissue. Dissection was performed with Littler scissors perpendicular to the skin incision and Ragnell retractors were used to visualize the A1 trace. The trace was then incised sharply in line with the tendon with a 15 blade knife and released proximally and distally under direct vision. The tendon and the finger could be flexed and extended with the tendon moving smoothly without catching, clicking or triggering. The tourniquet was released. Hemostasis obtained with bipolar electrocautery and a thrombin-soaked sponge. The subcutaneous tissue was injected with 0.25 Marcaine without epinephrine. The skin was closed with 4-0 simple nylon suture, and dressed with Xeroform, compressive dressing and a wrap. She was taken to recovery room in good condition. MD Connor MARTE 03/11/2018 11:01 [id number] T 03/11/2018 12:22 [facility]/MODL Electronically Signed By Aba Dutta M.D. on 18 Mar 2018 12:56:28 GMT GLUCOSE, POC Collected: 03/11/2018 Status: F Source: [facility] 10:31 AM [facility] REPOSITORY TYPE CODE TESTS RESULT OUT OF RANGE REFERENCE UNITS LAB GLUX 80-115 mg/dL High Glucose, 156 POC Performed By: #### GLUX #### Unless otherwise noted, all testing [place] [address] CLIA: [id number] Kiln Burner Helper: Ming Perry M.D. GLUCOSE, POC Collected: 03/06/2018 Status: F Source: [facility] 6:20 AM [facility] REPOSITORY TYPE CODE TESTS RESULT OUT OF RANGE REFERENCE UNITS LAB GLUX 80-115 mg/dL High Glucose, 162 POC Performed By: #### GLUX #### Unless otherwise noted, all testing performed by [address] [address] CLIA: [id number] Kiln Burner Helper: Ming Perry M.D. CBC W/O DIFF Collected: 03/05/2018 Status: F Source: [facility] 1:54 PM [facility] REPOSITORY TYPE CODE TESTS RESULT OUT OF RANGE REFERENCE UNITS LAB WBC 3.4-10.6 K/mcL WBC Normal 7.2 LAB RBC 3.7-5.0 M/mcL RBC Normal 4.45 LAB HGB 11.6-15.4 g/dL Normal Hemoglobin 13.8 LAB HCT 34.4-44.8 % Normal Hematocrit 39.9 LAB MCV 82.6-98.9 FL MCV Normal 89.7 LAB MCH 27.9-33.9 pg MCH Normal 31.1 LAB MCHC 33.1-35.1 g/dL MCHC Normal 34.6 LAB RDW 10-14.4 % RDW Normal 13.6 LAB PLT 162-402 K/mcL Platelet Normal Count 243 LAB MPV 7.0-10.6 FL MPV Normal 8.4 Performed By: #### CHEM8, CBCWOD #### Unless otherwise noted, all testing [place] [address] CLIA: [id number] Kiln Burner Helper: Ming Perry M.D. BASIC METABOLIC PANEL Collected: 03/05/2018 Status: F Source: [facility] 1:54 PM [facility] REPOSITORY TYPE CODE TESTS RESULT OUT OF REFERENCE UNITS RANGE LAB GLU 70-99 mg/dL High Glucose 175 Result Comment: This test result might be falsely depressed or falsely elevated on samples drawn from patients taking Sulfasalazine and Sulfapyridine. Venipuncture should occur prior to taking either of these drugs. LAB BUN 8-25 mg/dL BUN 19 LAB CREA 0.60-1.20 mg/dL Creatinine 0.90 LAB eGFR ml/min/1.73sq .m eGFR,NonAfrican-Am erican >=60 Result Comment: Non- GFR Calc eGFR is an estimated Glomerular Filtration Rate based on the value of the patient's serum creatinine. In outpatients, eGFR should be used as a helpful tool in screening for CKD. In inpatients or patients with acute renal failure, eGFR represents the GFR at the moment of the draw and should be used with caution. LAB eGFRB ml/min/1.73sq.m eGFR, -Emirati >=60 Result Comment: GFR Calc LAB CALCM 8.4-10.2 mg/dL Calcium 8.5 LAB NA 135-145 mmol/L Sodium 140 LAB K 3.5-5.1 mmol/L Potassium 3.6 LAB CL 98-108 mmol/L Chloride 105 LAB CO2 21-32 mmol/L CO2 29 Performed By: #### CHEM8, CBCWOD #### Unless otherwise noted, all testing performed by [address] [address] CLIA: [id number] Kiln Burner Helper: Ming Perry M.D. HAND, MINIMUM 3 Observed: 02/17/2018 Status: F Source: [facility] 2:36 PM [facility] REPOSITORY Final Report Accession No: [id number] Performed: Feb 17 2018 2:36PM Examination: RIGHT HAND, MINIMUM 3 VIEWS EXAM: HAND, MINIMUM 3 VIEWS RIGHT CLINICAL STATEMENT: Right hand pain COMPARISON: None TECHNIQUE: AP, lateral, and oblique views of the right hand (three views) FINDINGS: No acute fractures or dislocations are identified. Bony alignment is maintained. No aggressive osseous lesions. There is mild distal interphalangeal joint space narrowing. There appear to be several tiny marginal erosions or cysts at the distal interphalangeal joints. There are mild degenerative changes at the first carpometacarpal joint. No radiopaque foreign bodies. IMPRESSION: 1. No radiographic evidence for acute osseous injury in the right hand. 2. Mild scattered degenerative changes in the hand which appear to predominate at the distal interphalangeal joints. Interpreting Physician: KHUSHBOO PICKARD M.D. Trans: n/a : cc: CARDIOLOGY VISIT Observed: 02/10/2018 Status: F Source: [facility] 8:18 AM [facility] [place] [facility] [address] [place] [address] OFFICE VISIT Date of Service: 01/28/18 MR#: [id number] Acct: [id number] Name: LEXUSTROYRICH Rep #: [id number] : 1955 Provider: Cristino Villaseñor MD Age/Sex: 62/F Location: [facility] Status: Signed HPI HPI Chief Complaint: Follow-up visit. Details: RICH EDUARDO, is a 62 F who presents to the office today for a follow-up visit. She is a lady with a history of nonischemic cardiomyopathy hypertension hyperlipidemia who returns for routine follow-up visit. You do remember she was admitted to the hospital with congestive heart failure heart catheterization demonstrated ejection fraction of 40% and normal coronary arteries with moderate concentric left ventricular hypertrophy. Since her discharge she has had no neck arm or jaw discomfort suggest angina no dizziness or diaphoresis no near syncope or syncope she is been compliant with all her medications. Her physical exam demonstrates clear lung rahman regular rate and rhythm and no pedal edema. Intake Intake Visit Reasons: 6 M FU Allergies doxycycline [From Vibramycin] Allergy (Verified 07/29/17 13:36) Unknown Penicillins [PCN] Allergy (Verified 07/29/17 13:36) Hives clonidine Adverse Reaction (Verified 07/29/17 13:41) Vomiting codeine Adverse Reaction (Verified 07/29/17 13:41) Vomiting Medications Duloxetine HCl 60 mg PO BID 12/28/16 [History Confirmed 07/29/17] Glimepiride [Amaryl] 1 mg PO BID 12/28/16 [History Confirmed 07/29/17] Omeprazole [Prilosec] 20 mg PO DAILY 12/28/16 [History Confirmed 07/29/17] Potassium Chloride 10 meq PO DAILY 12/28/16 [History Confirmed 07/29/17] Aspirin [Aspirin, Baby] 81 mg PO DAILY@0800 #90 tab.chew 12/31/16 [Rx Confirmed 07/29/17] Atorvastatin Calcium [Lipitor] 20 mg PO QHS #90 tab 12/31/16 [Rx Confirmed 07/29/17] Furosemide [Lasix] 40 mg PO BID@1000,1800 #90 tab 12/31/16 [Rx Confirmed 07/29/17] adalimumab 40 mg/0.8 mL subcutaneous syringe kit 40 mg SC Q2W 07/29/17 [History Confirmed 07/29/17] celecoxib 100 mg capsule 100 mg PO BID 07/29/17 [History Confirmed 07/29/17] gabapentin 300 mg capsule 300 mg PO TID 07/29/17 [History Confirmed 07/29/17] carvedilol 12.5 mg tablet 12.5 mg PO BID #180 tab 01/21/18 [Rx] lisinopril 5 mg tablet 5 mg PO DAILY #90 tab 01/21/18 [Rx] PFSH Medical History Hyperlipidemia (Chronic) Essential (primary) hypertension (Chronic) Non-ischemic cardiomyopathy (Chronic) LBBB (left bundle branch block) (Chronic) COPD (chronic obstructive pulmonary disease) (Chronic) Diverticulosis (Inactive) Systolic CHF (Inactive) Surgical History History of cholecystectomy (Resolved) History of hysterectomy (Resolved) Hx of appendectomy (Resolved) Family History Mother , at age 77 from [place] My[facility] infarction Social History Smoking Status: Former smoker alcohol intake: former year quit: 1977 substance use type: does not use what type of physical activity do you participate in: none seatbelt use: always do you feel safe at home: Yes ROS Const Const: Negative for fatigue, body ache, fever(s), chills, night sweats, daytime sleepiness, difficulty sleeping, excessive sweating, weight gain, weight loss, increased appetite, poor appetite, anorexia or other Cardio Chest Pain: No Resp Respiratory: Negative for SOB with activity, SOB at rest, SOB orthopnea\SOB lying down, Cough, Coughing up blood/hemoptysis, chest congestion, pain on inspiration, snoring, stridor, wheezing, crackles, paroxysmal nocturnal dyspnea or other GI GI: Negative nausea, vomiting, heartburn, constipation, belching, bloating, cramping, vomiting blood/hematemesis, bright, red blood in stools, black,tarry stools, loose stools, Difficulty Swallowing or other : Negative for hematuria, frequent nighttime urination/ nocturia, erectile dysfunction or abnormal vaginal bleeding [place]erson Hematologic/Lymphatic: Negative for easy bleeding, easy bruising, enlarged lymph nodes or other Endo Endo: Negative for fatigue or excessive sweating Cardiology Exam Const Appearance: cooperative, healthy appearing, well developed, well groomed and no acute distress Nutritional Appearance: well nourished and average body habitus Orientation: alert, awake and oriented x3 Head Head: normal to inspection, normocephalic and atraumatic Ears: hearing grossly normal bilaterally and external ears normal Nose: external nose normal, nasal mucous membranes and turbinates normal, nares normal, septum normal, no nasal discharge Face and Sinus: face symmetric Mouth: oral mucosae normal, tongue normal, oropharynx normal and moist mucous membranes Teeth and gingiva: dentition normal Throat: posterior oropharynx normal, tonsils normal and uvula midline Eyes General: appearance normal, both eyes and all related structures Eyelids: eyelids normal Conjunctivae: conjunctivae normal Pupils: PERRL, normal by confrontation and accommodation normal EOM: EOM intact bilaterally Neck Neck: normal visual inspection, trachea midline and no JVD JVD: +5 Carotids: normal carotid upstroke and bounding pulses Chest Chest inspection: normal inspection of the chest, symmetric chest movement and normal respiratory effort Auscultation: Bilateral: Clear to Auscultation Cardio Palpation: normal PMI Rate: regular rate Rhythm: regular rhythm Heart sounds: S1 normal, S2 normal and normal, physiologic split S2; negative rub, gallop or murmur GI GI: normal to inspection, soft, no hepatosplenomegaly and bowel sounds present Neuro General: alert, awake, oriented x3, no focal sensory deficit, gait normal and moves all extremities Skin Skin: no rashes or lesions noted Extremities Pulses: Normal: Right Femoral Pulse, Left Femoral Pulse, Right Dorsalis Pedis Pulse, Left Dorsalis Pedis Pulse, Right Posterior Tibial Pulse, Left Posterior Tibial Pulse, Right Radial Pulse, Left Radial Pulse Lower Extremity Edema: None: Bilateral Musculoskel Musculoskeletal: No joint tenderness Psych Psychological: normal affect Assessment AND Plan 1. Non-ischemic cardiomyopathy I42.8 Plan She does have a of nonischemic cardiomyopathy without any heart failure symptoms my recommendation will be for her to continue the current medical therapy with no changes. She will remain on the KATHLEEN inhibitor as well as the beta-kristian. As noted above his ejection fraction is noted to be 40%. 2. Essential (primary) hypertension I10 Plan She does have a history of hypertension and her blood pressure appears to be well controlled on the current medical regimen. No other changes will be made. 3. Pure hypercholesterolemia E78.00 Plan She does have a history of hyperlipidemia and will follow up with routine lipid tests. Her most recent lipid tests was in December of last year and have suggested that we obtain a repeat. Due to computer issues past medical history as well as medications were not contemporaneously. Thank you for allowing me to participate in the care of your patient. 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) Coding Level of Care Code Off vis,est,level 3 Diagnoses Non-ischemic cardiomyopathy I42.8 Essential (primary) hypertension I10 Pure hypercholesterolemia E78.00 Hyperlipidemia type: pure hypercholesterolemia Coding Level of Care Code Off vis,est,level 3 Diagnoses Non-ischemic cardiomyopathy I42.8 Essential (primary) hypertension I10 Pure hypercholesterolemia E78.00 Hyperlipidemia type: pure hypercholesterolemia 02/10/18 0818 <Electronically signed by Cristino Villaseñor MD> Date Cristino Villaseñor MD Cosigner Signature: Date (if applicable) CC: Mateus Whalen MA MAMM DIAG W/CAD Observed: 12/10/2017 Status: F Source: [facility] IF PERF AND 3D LT 9:30 AM [facility] REPOSITORY Exam Date/Time: 12/10/2017 09:51 EDT Reason for Exam: ABNORMAL LEFT BREAST MAMMOGRAM;Abnormal mammogram Report LEFT DIAGNOSTIC 3-D BREAST TOMOSYNTHESIS WITH CAD COMPARISON: 11/19/2017 and 11/05/2016. FINDINGS: The left breast is fatty. Benign calcifications are seen on the 2-D views. The 3-D tomograms at 1 mm intervals show benign appearing densities, with circumscribed margins, in the lateral portion superiorly. There is no architectural distortion or mass lesion. The densities seen on the previous 2-D study previously are secondary to overlapping markings in the lateral and anterior portion of the breast. IMPRESSION: No mass lesion or architectural distortion. BI-RADS 2 - Benign, no evidence of malignancy. Normal interval followup is recommended in 12 months. OVERALL ASSESSMENT- BENIGN A letter of notification will be sent to the patient regarding the results. Assessment / Recommendation: 2-1 Normal interval follow-up Breast density: Fatty Density Recall interval: 012 months FINAL REPORT Dictated: 12/11/2017 7:50 am Gilberto Callaway MD Signed (Electronic Signature): 12/11/2017 7:50 am Signed by: Gilberto Callaway MD Technologist: VERONICA Assessment: BI-RADS Category 2-Benign finding Recommendation: Normal interval follow-up CBC W/DIFF, AUTOMATED Collected: 12/06/2017 Status: F Source: [place] 12:01 PM [facility] TYPE CODE TESTS RESULT OUT OF RANGE REFERENCE UNITS LAB L100.1000 4.4-11.0 K/mm3 Normal WBC 6.7 LAB L100.1200 4.2-5.4 M/mm3 Normal RBC 4.21 LAB L100.1300 12.0-15.0 g/dl Normal HGB 13.0 LAB L100.1400 37-47 % Normal HCT 38.4 LAB L100.1500 81-99 fL Normal MCV 91.2 LAB L100.1600 27.0-32.0 pg Normal MCH 30.9 LAB L100.1700 32-36 g/gl Normal MCHC 33.9 LAB L100.1810 11.6-14.6 % Normal RDW CV 12.9 LAB L100.1820 35.1-43.9 fl Normal RDW SD 42.1 LAB L100.1900 150-450 K/mm3 Normal PLT 232 LAB L100.2000 6.2-12.0 fl Normal MPV 10.9 LAB L100.2100 47-70 % Normal NEUT% 53.8 LAB L100.2200 19-41 % Normal LY% 33.2 LAB L100.2300 0-10 % Normal MONO% 8.4 LAB L100.2400 0-5 % Normal EO% 3.5 LAB L100.2500 0-1 % Normal BASO% 0.6 LAB L100.2550 0.0-0.9 % Normal IM GRAN % 0.500 Result Comment: IG% - Immature Granulocytes (promyelocytes, myelocytes and metamyelocytes) > 1% indicates that a LEFT SHIFT is Present. LAB L100.2620 2.0-7.7 X10 3/uL Normal Absolute Neut 3.6 LAB L100.2720 0.83-4.51 X10 3/ul Normal Absolute Lymph 2.21 Performed By: #### L100.0100 #### [facility] [address] [place], [place], [address] COMPREHENSIVE METABOLIC Collected: 12/06/2017 Status: F Source: [place] [facility] 12:01 PM [facility] [place] TYPE CODE TESTS RESULT OUT OF RANGE REFERENCE UNITS LAB L501.0100 74-106 mg/dL High GLU 116 Result Comment: Fasting Glucose result from 100 to 125 mg/dL suggests IMPAIRED HOMEOSTASIS per A.D.A. criteria. Please note revised GLUCOSE reference range effective 2017. LAB L501.1000 7-18 mg/dL High BUN 20 LAB L501.1100 0.55-1.02 mg/dL Normal CREAT,SERUM 0.88 Result Comment: The validity of the calculated GFR AND GFRAA in patients over 70 years has not been determined. Clinical correlation is essential. LAB L501.1110 >60 mL/min Normal EST GFR 69 Result Comment: Non- GFR Calc LAB L501.1115 >60 mL/min Normal EST GFR - AA 83 Result Comment: GFR Calc LAB L501.1300 10-20 RATIO High BUN/CRE 22.7 LAB L501.1500 6.4-8.2 g/dL T Normal PROT 7.1 LAB L501.1800 3.2-5.0 g/dL Normal ALB 3.6 LAB L501.1950 2.2-4.2 g/dL Normal GLOB 3.5 LAB L501.2000 0.9-2.4 RATIO Normal A/G 1.0 LAB L501.2200 8.5-10.1 mg/dL CA Normal 8.6 LAB L501.4100 15-37 U/L Normal AST 24 LAB L501.4305 45-117 U/L Normal ALK P 73 LAB L501.4405 13-56 U/L Normal ALT 33 Result Comment: Please note revised ALT reference range effective 2017. LAB L501.4600 0.20-1.00 mg/dL Normal T BILI 0.50 LAB L501.5300 136-145 mmol/L Normal NA 141 LAB L501.5600 3.5-5.1 mmol/L Normal K 3.6 LAB L501.5900 98-107 mmol/L Normal CL 103 LAB L501.6100 21.0-32.0 mmol/L Normal CO2 31.0 LAB L501.6200 5-15 Normal GAP 7 Performed By: #### L500.4050 #### [facility] [address] [place], [address] MA MAMM SCREEN W/CAD Observed: 11/19/2017 Status: F Source: S[facility]IAN[facility] IF PERFORMED BILAT 3:[address] [facility] REPOSITORY Exam Date/Time: 11/19/2017 15:34 EDT Reason for Exam: SCREENING;Screening Report BILATERAL DIGITAL SCREENING MAMMOGRAMS WITH CAD: COMPARISON: 11/05/2016, 10/24/2015 and 10/18/2014. FINDINGS: RIGHT BREAST: The breast parenchyma continues to be fatty, without any change. There is no architectural distortion, mass or clustered microcalcifications. LEFT BREAST: The breast parenchyma is fatty. There is increased density in the upper portion of the left breast. Although this area did show some denser glandular tissue on the previous examination there is more of a nodular appearance on the MLO projection. 3-D breast tomosynthesis of the left breast is recommended for evaluation. No confirming finding is seen on the CC projection. A benign-appearing density is present, in the posterolateral portion of the breast unchanged from previous examinations, measuring about 5 mm in the longest dimension. IMPRESSION: Asymmetric density, in the upper lateral aspect of the left breast on the MLO projection seen only on one view. Left breast 3-D tomosynthesis recommended. BI-RADS 0 - Need additional imaging evaluation at this time. OVERALL ASSESSMENT- NEED ADDITIONAL IMAGING EVALUATION. A letter of notification will be sent to the patient regarding the results. Assessment / Recommendation: 0-1 Additional projections Breast density: Fatty Density Recall interval: Now FINAL REPORT Dictated: 11/20/2017 5:00 pm Gilberto Callaway MD Signed (Electronic Signature): 11/20/2017 5:00 pm Signed by: Gilberto Callaway MD Technologist: CORY Assessment: BI-RADS Category 0-Incomplete: Need additional imaging evaluation Recommendation: Additional projections ALLERGIES ALLERGIES DATE TYPE / CODE NAME / CODE REACTION SEVERITY SOURCE 08/07/2018 Drug Penicillins/K75874 Hives Unknown [place] Allergy/416 0476(RXNORM) [facility] 426164[facility] 08/07/2018 Drug codeine/[id number] Vomiting Unknown [place] Allergy/416 (RXNORM) Community 671294[facility] Repository 08/07/2018 Drug doxycycline/U20940 Unknown Unknown [place] Allergy/416 2748(RXNORM) Community 469969[facility] Repository 08/07/2018 Drug clonidine/[id number] Vomiting Unknown [place] Allergy/416 95(RXNORM) Community 968936[facility] Repository Drug/495034 penicillins [id number] [facility] 003(OMED [facility] CT) System Repository Drug/312468 Vibramycin [facility] 003(OMED [facility] CT) System Repository Drug/138997 cloNIDine [place] 003(OMED [facility] CT) System Repository Drug/097959 Misc. Anesthesia [facility] 003(SNOMED [facility] CT) System Repository DRUG CLONIDINE [facility] INGREDI/419 Three Repository 801195(SNOM ED CT) DRUG DOXYCYCLINE [facility] INGREDI/419 Three Repository 143456(SNOM ED CT) Drug PENICILLINS [facility] Class/51574 Three Repository 1003(SNOMED CT) ENCOUNTERS ENCOUNTERS ADMIT/DISCHARGE ACCOUNT NUMBER ADMITTING ENCOUNTER LOCATION SOURCE CLASS 09/04/2018 [id number] [place], Ambulatory [facility] ding:[facility] Repository 08/25/2018/08/25/20 [id number] Ambulatory BMSBuilding: [place] 18 BMS.[facility] Repository 08/12/2018 [id number] Ambulatory BMSBuilding: [place] BMS.CF.[facility] Repository 08/11/2018/08/12/20 [id number] Ambulatory [address] ding:[facility] Repository m: [id number] 08/11/2018 [id number] Ambulatory BMSBuilding: [place] [facility] Repository 08/07/2018/08/07/20 [id number] Ambulatory BMSBuilding: [place] 18 BMS.[facility] Repository 08/07/2018/08/07/20 [id number] Ambulatory BMSBuilding: [place] 18 BMS.[facility] Repository 07/30/2018/07/30/20 [id number] [place], Ambulatory [address] ding:[facility] P Repository 07/30/2018/07/30/20 [id number] Ambulatory Building:[address] Three ER Repository 07/30/2018 [id number] Ambulatory [address] [place] [address] Repository 07/30/2018 [id number] Ambulatory [address] [place] [address] Repository 07/14/2018 [id number] Ambulatory BMSBuilding: [place] BMS.[facility] Repository 07/10/2018 [id number] Ambulatory BMSBuilding: [place] BMS.[facility] Repository 07/10/2018 [id number] Ambulatory BMSBuilding: [place] [facility] Repository 07/10/2018 [id number] Ambulatory [facility] ding:[facility] Repository 07/10/2018 [id number] Ambulatory [facility] ding:[facility] Repository 07/08/2018/07/08/20 [id number] [place], [address] ding:[facility] IO Repository 07/08/2018 [id number] Ambulatory [address] [place] [address] Repository 07/07/2018/07/07/20 [id number] Ambulatory BMSBuilding: [place] 18 BMS.[facility] Repository 07/01/2018 [id number] Ambulatory [facility] ding:[place] Repository nt Medic 07/01/2018/07/01/20 [id number] [place], [address] ding:[place] Repository nt MedicRoom: Room 2 06/26/2018 [id number] Ambulatory Building:[facility] Three ER Repository 06/18/2018/06/18/20 [id number] Ambulatory Building:[address] Three ER Repository 06/05/2018/06/05/20 [id number] Ambulatory [address] ding:[place] Repository nt Medic 05/30/2018 [id number] Ambulatory [facility] ding:MTRAD Repository 05/22/2018/05/22/20 [id number] Ambulatory Building:[facility] [place] [address] SPORTSMEDAMB Three ER Repository 05/19/2018 [id number] Ambulatory [facility] ding:MTLAB Repository 04/25/2018 [id number] Ambulatory Building:[facility] SPORTSMEDAMB Three ER Repository 04/17/2018/04/17/20 [id number] Ambulatory Building:[facility] [place] [address] SPORTSMEDAMB Three ER Repository 04/03/2018/04/03/20 [id number] Ambulatory Building:[place] [address] SPORTSMEDAMB Three ER Repository 04/02/2018/04/04/[id number] ding:[facility] ERoom: Repository 0308Bed: 04/02/2018 [id number] Ambulatory [address] [place] [address] Repository 03/24/2018/03/24/20 [id number] Ambulatory Building:[place] [address] ORTHOMORRISR Three D Repository 03/17/2018/03/17/20 [id number] Ambulatory Building:[place] [address] ORTHOMORRISR Three D Repository 03/11/2018/03/11/20 [id number] Aba Dutta Ambulatory [place] [address] C lding:S1A [place] and ORRoom: S1A [place] S1ABed: S1A Hospitals [id number] Repository 03/11/2018/03/11/20 [id number] Ambulatory Building:[place] [address] ORTHOMORRISR Three D Repository 03/06/2018/03/06/20 [id number] Aba Dutta Ambulatory [place] [address] C lding:S1A [place] and Genesis: S1A [place] S1ABed: S1A Hospitals [id number] Repository 03/05/2018 [id number] Aba Dutta Ambulatory [facility] Repository 02/25/2018/02/26/20 [id number] [place] [address] ding:[place] Repository nt MedicRoom: Room 2 02/17/2018 [id number] Aba Dutta Ambulatory [facility] Repository 02/17/2018/02/18/20 [id number] Ambulatory Building:[place] [address] ORTHOMORRISR Three D Repository 01/28/2018/01/29/20 [id number] Ambulatory BMSBuilding: [place] 18 BMS.[facility] Repository 12/10/2017/12/11/[id number] ding:[facility] Repository 12/06/2017 [id number] [facility] Repository 11/19/2017/11/20/[id number] ding:[facility] Repository PAYERS PAYERS ENCOUNTER GUARANTOR PAYER SUBSCRIBER SOURCE 09/04/2018 RICH Hess Primary JHONNY L NEECEDOB: [facility] NEECEDOB: Insurance:ANTHEMPolic [id number] [facility] y Number: Effective [employer] [facility] [address], Date:2018-07-14 [facility] [place] [id number] [id number]: [phone]: Name:[employer] [address] [place] [address] ()Tel: [phone] () [phone]: () [phone] 08/25/2018 JHONNY L [id number] Primary JHONNY L NEECEDOB: [place] [facility] [address], Insurance:ANTHEMPolic [id number] [address]Rmc: y Number: [facility] [id number] Repository () Date:[id number] [address] [place] [address]TR: 08/25/2018 Secondary NOT GIVENUNK [place] Insurance:SELF PAY [facility] Number: Effective Repository Date:2018-08-25 08/12/2018 JHONNY L [id number] Primary JHONNY L NEECEDOB: [place] [address], Insurance:ANTHEMPolic [id number] [facility] [place] [address]Geu: y Number: [facility] [id number] Repository (HP) Date:7102-37-12NU [address]HNZTYKN [place] [address]JR: 08/12/2018 Secondary NOT GIVENUNK [place] Insurance:SELF PAY [facility] Number: Effective Repository Date:2018-08-12 08/11/2018 JHONNY L [id number] Primary JHONNY L NEECEDOB: [place] [address], Insurance:ANTHEMPolic [id number] [facility] [place] [address]Yvs: y Number: [facility] [id number] Repository (HP) Date:1555-00-07VN [address]ASXOVHM [place] [address]GO: 08/11/2018 Secondary NOT GIVENUNK [place] Insurance:SELF PAY [facility] Number: Effective Repository Date:2018-08-05 08/11/2018 JHONNY L [id number] Primary JHONNY L NEECEDOB: [place] [address], Insurance:ANTHEMPolic [id number] [facility] [place] [address]Lkt: y Number: [facility] [id number] Repository (HP) Date:0116-64-26PB [address]FCAFYUO [place] [address]CI: 08/11/2018 Secondary NOT GIVENUNK [place] Insurance:SELF PAY [facility] Number: Effective Repository Date:2018-08-11 08/07/2018 JHONNY L [id number] Primary JHONNY L NEECEDOB: [place] [address], Insurance:ANTHEMPolic [id number] [facility] [place] [address]Srn: y Number: Hospital [id number] Repository (HP) Date:9634-47-28ZI [address]BYS, [place] [address]PC: 08/07/2018 Secondary NOT GIVENUNK [place] Insurance:[facility]LF [facility] Number: Effective Repository Date:2018-08-07 08/07/2018 JHONNY L [id number] Primary JHONNY L NEECEDOB: [place] [facility] [address], Insurance:ANTHEMPolic [id number] [facility] [place] [address]Sri: y Number: Hospital [id number] Repository (HP) Date:0587-95-71OV [address] [place] [address]GV: 08/07/2018 Secondary NOT GIVENUNK [place] Insurance:SELF PAY [facility] Number: Effective Repository Date:2018-08-07 07/30/2018 RICH A Primary JHONNY L NEECEDOB: [place] NEECEDOB: Insurance:ANTHEMPolic [id number] [facility] y Number: Effective [facility] [address], Date:2018-07-[address] [place] [address], [place]ository [place] [id number] [address]Whe: [phone]: Name:[facility] ABIOLA SAL ()Tel: [phone] (HP) [phone]: () [phone] 07/30/2018 RICH A Primary JHONNY L NEECEDOB: [facility] NEECEDOB: Insurance:ANTHEMPolic [id number] [facility] Repository y Number: [id number], Date:6790-64-02YS [address] [place] [address]Mbq: [place] [address]Mli: [place] [address]WP: [phone] 07/30/2018 RICH Primary Pending sale to [facility] NEECEDOB: Insurance:AnthemPolic NEECEDOB: Hospitals y Number: [id number] Repository [address] [place] [address], [id number] [facility] [place] [id number]: Date:Plan Name:[address] [id number]: (HP) (HP) 07/30/2018 [facility] NEECEDOB: Insurance:AnthemPolic NEECEDOB: Hospitals y Number: [id number] [facility]ository [facility] [address] [place] [address], [id number] [facility] [id number]: Date:Plan Name:[address] [id number]: (HP) (HP) 07/14/2018 JHONNY Calder[place] [id number] Primary JHONNY Caldera NEECEDOB: [place] [address], Insurance:ANTHEMPolic [id number] [address]Igk: y Number: [facility] [id number] Repository () Date:7939-17-81AW [address]UDVT, [place] [address]GS: 07/14/2018 Secondary NOT GIVENUNK [place] Insurance:SELF PAY [facility] Number: Effective Repository Date:2018-07-14 07/10/2018 JHONNY L [id number] Primary JHONNY [place] NEECEDOB: [place] [address], Insurance:ANTHEMPolic [id number] [facility] [place] [address]Zzl: y Number: [facility] [id number] Repository (HP) Date:4773-57-56UT [address]NIQEXS, [place] [address]FU: 07/10/2018 Secondary NOT GIVENUNK [place] Insurance:SELF PAY [facility] Number: Effective Repository Date:2018-07-10 07/10/2018 JHONNY L [id number] Primary JHONNY L NEECEDOB: [place] [address], Insurance:ANTHEMPolic [id number] [facility] [place] [address]Zzf: y Number: Hospital [id number] Repository () Date:2247-34-74MP [address] [place] [address]MZ: 07/10/2018 Secondary NOT GIVENUNK [place] Insurance:SELF PAY [facility] Number: Effective Repository Date:2018-07-10 07/10/2018 JHONNY L [id number] Primary JHONNY L NEECEDOB: [place] [address], Insurance:ANTHEMPolic [id number] [facility] [place] [address]Vug: y Number: [facility] [id number] Repository () Date:6204-90-24TU [address] [place] [address] 41793UC: 07/10/2018 Secondary NOT GIVENUNK [place] Insurance:SELF PAY [facility] Number: Effective Repository Date:2018-07-07 07/10/2018 JHONNY L [id number] Primary JHONNY L NEECEDOB: [place] [address], Insurance:ANTHEMPolic [id number] [facility] [place] [address]Kww: y Number: [facility] [id number] Repository () Date:5338-19-86PY [address] [place] [address]US: 07/10/2018 Secondary NOT GIVENUNK [place] Insurance:SELF PAY Community [facility] Number: Effective Repository Date:2018-07-07 07/08/2018 RICH A Primary JHONNY L NEECEDOB: [facility] NEECEDOB: Insurance:ANTHEMPolic [id number] [facility] y Number: Effective [address], Date:2018-07-01 [address], [place] Repository [place] 4388-55-94Zhsh [address]Psu: [address]Wrv: Name:[facility] RACHEL 586005OEHEWQMABIOLA MCLEOD ()Tel: ([phone]) (HP) [phone]: (wp) [phone] 07/08/2018 RICH Primary Pending sale to [facility] NEECEDOB: Insurance:AnthemPolic NEECEDOB: Hospitals y Number: [id number] [facility]ository [facility] [address] [place] [address], [id number] [facility] [id number]: Date:Plan Name:[address] [id number]: () (NT) 07/07/2018 JHONNY L [id number] Primary JHONNY L NEECEDOB: [place] [address], Insurance:ANTHEMPolic [id number] [address]Qap: y Number: Hospital [id number] Repository () Date:1339-76-47SJ [address] [place] [address]KW: 07/07/2018 Secondary NOT GIVENUNK [place] Insurance:SELF PAY [facility] Number: Effective Repository Date:2018-07-07 07/01/2018 RICH A Primary JHONNY L [facility]1500 [id number] [facility] ANTHEMPolicy Number: [address], Effective [address] [place] [address] [place]ository [place] Date:2018-07-01 [address]Duh: [address]Vzj: 7027-96-64Yukx Name:CD:[id number] O (HP)Tel: [phone]) (HP) [address] [phone] (RI) [address]CN: 07/01/2018 RICH A Primary [facility] [id number] [facility] ANTHEMPolicy Number: [place] [address], [place] [address], [place] Date:2018-02-25 [id number]: [address]Kxj: 9837-90-73Hilc Name:CD:[id number] O (HP)Tel: [phone]) (HP) [address]HCUTWJT, [place] [phone] (PY) [address]WP: 06/26/2018 RICH A Primary JHONNY L NEECEDOB: [facility] NEECEDOB: Insurance:ANTHEMPolic [id number] Three Repository y Number: [id number], [address], Date:4936-26-38LA [address] [place] [address]Ewu: [place] [address]Fyo: [id number], [place] [address]IO: [phone] (HP) (HP) [phone] 06/18/2018 RICH A Primary JHONNY L NEECEDOB: [facility] NEECEDOB: Insurance:ANTHEMPolic [id number] Three Repository y Number: [id number], [address], Date:3914-53-10PK [address] [place] [address]Fed: [place] [address]Ift: [id number], [place] [address]TV: [phone] (HP) (HP) [phone] 06/05/2018 RICH A Primary JHONNY L NEECEDOB: [facility] NEECEDOB: Insurance:ANTHEMPolic [id number] [facility] [place] y Number: Effective [employer] [facility] [address], Date:2018-05-23 [facility] [place] 2793-33-71Vpnx [id number]: [address]Ewf: Name:Jurgen Fenton [address] ) [phone] [id number] MCLEOD (HP)Tel: [phone]) (HP) [phone]: () [phone] 05/30/2018 JHONNY L [id number] Primary JHONNY L NEECEDOB: [place] [address], Insurance:ANTHEMPolic [id number] [facility] [place] [address]Odq: y Number: Hospital [id number] Repository (HP) Date:1661-59-61PC [address] [address]HO: 05/30/2018 Secondary NOT GIVENUNK [place] Insurance:SELF PAY Community [facility] Number: Effective Repository Date:2018-05-30 05/22/2018 RICH A Primary JHONNY L NEECEDOB: [facility] NEECEDOB: Insurance:ANTHEMPolic [id number] Three Repository y Number: [address] [facility] [id number] [address] [facility], [address], Date:6866-93-14IZ [address] [place] [address]Kmk: [place] [address]Ubb: [id number], [place] ) [phone] [address]WP: [phone]) () () [phone] 05/19/2018 JHONNY L [id number] Primary JHONNY L NEECEDOB: [place] [address], Insurance:ANTHEMPolic [id number] [facility] [place] [address]Gta: y Number: Hospital [id number] Repository (HP) Date:0008-18-06LS [address] [address]XL: 05/19/2018 Secondary NOT GIVENUNK [place] Insurance:SELF PAY Community [facility] Number: Effective Repository Date:2018-05-19 04/25/2018 RICH A Primary JHONNY L NEECEDOB: [facility] NEECEDOB: Insurance:ANTHEMPolic [id number] Three Repository y Number: [id number], [address], Date:3435-23-38ZA [address] [place] [address]Usg: [place] [address]Acv: [id number], [place] [address]VI: [phone]) (HP) (HP) [phone] 04/17/2018 RICH A Primary JHONNY L NEECEDOB: [facility] NEECEDOB: Insurance:ANTHEMPolic [id number] Three Repository y Number: [id number], [address] [facility], Date:7615-59-48LP [address] [place] [address]Kdt: [place] [address]Fpn: [id number], [place] [address]HP: [phone] (HP) (HP) [phone] 04/03/2018 RICH A Primary JHONNY L NEECEDOB: [facility] NEECEDOB: Insurance:ANTHEMPolic [id number] Three Repository y Number: [id number], [address] [facility], Date:9167-75-89PB [address] [place] [address]Tom: [place] [address]Sho: [id number], [place] [address]MN: [phone] (HP) (HP) [phone] 04/02/2018 RICH A Primary JHONNY L NEECEDOB: [facility] NEECEDOB: Insurance:ANTHEMPolic [id number] [facility] [place] y Number: Effective [employer] [address], Date:2018-04-02 [address], [place] Repository [place] 8770-18-59Dkxn [id number]: [address]Pvt: Name:[facility]gen [facility] [address]WEESBMH, [place] (HP)Tel: [phone]) () [phone]: () [phone] 04/02/2018 RICH A Primary RICH A [place] NEECEDOB: Insurance:AnthemPolic NEECEDOB: Hospitals y Number: [id number] Repository [address] [place] [address], [id number] [facility] [id number]: Date:Plan Name:[address] [id number]: (AX) () 03/24/2018 RICH A Primary [facility]ONNY L [facility] [id number] Three Repository y Number: [address] [facility] [id number] [address] [facility], [address] [facility], Date:8296-20-73WN [address] [place] [address]Coh: [place] [address]Jxy: [id number], [place] [address]WP: [phone]) (HP) (HP) [phone] 03/17/2018 RICH A Primary JHONNY L [facility]EDOB: [facility]: Insurance:[facility]OSPITALolic [id number] Three Repository y Number: [id number], [address], Date:7251-85-49XP [address] [place] [address]Iba: [place] [address]Oor: [id number], [place] [address]WP: [phone]) (HP) (HP) [phone] 03/11/2018 Primary JHONNY L NEECEDOB: [facility] Insurance:Blue Cross [id number] [address] Number: [address] [id number] [address] [place] [address] Repository Date:Plan Name:Health [id number]: () 03/11/2018 RICH A Primary JHONNY L NEECEDOB: [facility] NEECEDOB: Insurance:ANTHEMPolic [id number] Three Repository y Number: [id number], Date:4725-54-98YS [address] [place] [address]Yqz: [place] [address]Ltt: [id number], [place] [address]WP: [phone]) (HP) (HP) [phone] 03/06/2018 Primary JHONNY L [facility]OB[facility] Insurance:[employer] [id number] [place] and [address] [place] [address] Number: [address] [id number] Repository Date:Plan Name:Health [address]Pga: () 03/05/2018 Primary JHONNY L [facility]OB[facility] Insurance:[employer] [id number] [place] [facility] Number: [address] [facility] [id number] [address] [place] [address] Repository Date:Plan Name:Health [address]Sug: () 02/25/2018 RICH A Primary JHONNY L NEECEDOB: [facility] NEECEDOB: Insurance:1500 [id number] [facility] ANTHEMPolicy Number: [employer] [address], Effective [address], [place] Repository [place] [id number]: Date:2017-09-26 [id number]: [id number] () Name:CD:[id number] O ()Tel: (022) [address]NNGQJXM, [place] [phone] (OL) [address]KK: 02/17/2018 Primary JHONNY L NEECEDOB: [facility] Insurance:Blue Cross [id number] [address] Number: [address] [facility] [id number] [address] [place] [address] Repository Date:Plan Name:Health [address]Hod: () 02/17/2018 RICH A Primary JHONNY L NEECEDOB: [facility] NEECEDOB: Insurance:ANTHEMPolic [id number] Three Repository y Number: [id number], Date:6371-64-59LP [address] [place] [address]Ocg: [place] [address]Ylg: [id number], [place] [address]WP: ([phone]) () () [phone] 01/28/2018 Jhonny L [id number] Primary Jhonny L NeeceDOB: [place] [address] Insurance:ANTHEMPolic [id number] Community [address]Xsc: (419) y Number: Hospital [phone] (HP) [id number] Repository Date:1434-97-99[address]EWSTKTN, [place] [address]CE: 01/28/2018 Secondary NOT GIVENUNK [place] Insurance:SELF PAY Community [facility] Number: Effective Repository Date:2018-02-08 12/10/2017 RICH A Primary JHONNY L NEECEDOB: [facility] NEECEDOB: Insurance:ANTHEMPolic [id number] [facility] [place] y Number: Effective [employer] [address], Date:2017-11-[address] [place] [address], [place] [id number]: 5025-27-73Qsho [id number]: Name:Jurgen Rebollar [address] (HP) 101756XBYHGDNABIOLA MCLEOD ()Tel: [phone]: () [phone] 12/06/2017 Jhonny L [id number] Primary Jhonny L NeeceDOB: [place] [address] [facility], [place] Insurance:ANTHEMPolic [id number] Community [address]Qsu: 419) y Number: Hospital [phone] () [id number] Repository Date:3327-47-68GS [address]NBVNOUO, [place] [address]EV: 12/06/2017 Secondary NOT GIVENUNK [place] Insurance:SELF PAY [facility] Number: Effective Repository Date:2017-12-06 11/19/2017 RICH A Primary JHONNY L NEECEDOB: [facility] NEECEDOB: Insurance:ANTHEMPolic [id number] [facility] y Number: Effective [employer] [address], Date:2017-10-10 [facility] [place] [id number]: [id number] [id number]: Name:Jurgen [facility] () [address] SAL ()Tel: [phone]: () [phone]
== END 2018-08-12 10:21 | disposition home or self-care (01) ==
LOC: CLSP 11:25 → PCU 16:17
PROVIDERS: Family Provider Nurse Practitioner Family; PCP Nurse Practitioner Family; Referring Provider Internal Medicine Cardiovascular Disease; Visit Provider Internal Medicine Cardiovascular Disease
DX: I44.2 Atrioventricular block, complete (principal); I45.5 Other specified heart block; I44.7 Left bundle-branch block, unspecified; R55 Syncope and collapse; I42.8 Other cardiomyopathies; I10 Essential (primary) hypertension; E78.5 Hyperlipidemia, unspecified; G47.33 Obstructive sleep apnea (adult) (pediatric); Z88.0 Allergy status to penicillin; Z79.84 Long term (current) use of oral hypoglycemic drugs; Z79.82 Long term (current) use of aspirin; Z79.899 Other long term (current) drug therapy; Z87.891 Personal history of nicotine dependence; J44.9 Chronic obstructive pulmonary disease, unspecified; Z87.19 Personal history of other diseases of the digestive system
CPT/HCPCS: 33208; 36415; 71045; 71046; 80048; 81001; 85027; 85610; 99152; 99153; J7040; J7050; C1769; C1894

== ENCOUNTER → 2018-09-22 10:29 | Outpatient (CLI) | payer BC, SELFPAY ==
[2018-08-11 16:21] VITALS: BMI 37.8
[2018-09-22 12:03] LABS: Absolute Lymphocyte Count 2.17 X10^3/ul (0.83-4.51); Absolute Neutrophil Count 3.3 X10^3/uL (2.0-7.7); Basophil# 0.04 X10^3/uL; Basophil% 0.7 % (0-1); Eosinophil# 0.15 X10^3/uL; Eosinophils% 2.5 % (0-5); Hematocrit 39.9 % (37-47); Hemoglobin 13.3 g/dl (12.0-15.0); Lymphocyte # 2.17 X10^3/ul (4.0); Lymphocyte % 35.6 % (19-41); Mean Corp Hgb Conc 33.3 g/gl (32-36); Mean Corpuscular Hgb 30.5 pg (27.0-32.0); Mean Corpuscular Volume 91.5 fL (81-99); Mean Platelet Vol. 11.1 fl (6.2-12.0); Monocyte# 0.42 X10^3/uL; Monocyte% 6.9 % (0-10); Neutrophil # 3.27 X10^3/uL (2.7-7.7); Neutrophil % 53.6 % (47-70); Platelet Count 242 K/mm3 (150-450); RBC Distribution Width CV 13.9 % (11.6-14.6); RBC Distribution Width SD 45.6 fl (35.1-43.9); Red Blood Count 4.36 M/mm3 (4.2-5.4); White Blood Count 6.1 K/mm3 (4.4-11.0)
[2018-09-22 12:06] LABS: POSITIVE COUNT NO; POSITIVE DIFFERENTIAL NO; POSITIVE MORPHOLOGY NO
[2018-09-22 12:28] LABS: ALB/GLOB Ratio 0.9 RATIO (0.9-2.4); AST(SGOT) 30 U/L (15-37); Alanine Aminotransfer ALT/SGPT 41 U/L (13-56); Albumin, Serum 3.6 g/dL (3.2-5.0); Alkaline Phosphatase 68 U/L (45-117); Anion Gap 8 (5-15); BUN 21 mg/dL (7-18); BUN/Creat Ratio 24.6 RATIO (10-20); Calcium,Total 8.6 mg/dL (8.5-10.1); Chloride 104 mmol/L (98-107); Creatinine, Serum 0.85 mg/dL (0.55-1.02); EST Glomerular Filtration Rate 71 mL/min (>60); Est Glom Filt Rate - Afr Amer 86 mL/min (>60); Globulin 3.8 g/dL (2.2-4.2); Glucose 126 mg/dL (74-106); Protein, Total 7.4 g/dL (6.4-8.2); Sodium Level 142 mmol/L (136-145); Vitamin B12 1771 pg/mL (211-911); Vitamin D,25 Hydroxy 47.1 ng/mL (29.95-100.01)
[2018-09-22 12:32] LABS: Hemoglobin A1c 6.8 % (4.2-6.3)
== END ==
PROVIDERS: Family Provider Nurse Practitioner Family; PCP Nurse Practitioner Family; Referring Provider Nurse Practitioner Family; Visit Provider Nurse Practitioner Family
DX: L40.59 Other psoriatic arthropathy (principal); M18.0 Bilateral primary osteoarthritis of first carpometacarpal joints; M79.7 Fibromyalgia; Z79.899 Other long term (current) drug therapy
CPT/HCPCS: 36415; 80053; 82306; 82607; 83036; 85025

== ENCOUNTER → 2018-10-09 11:49 | Outpatient (CLI) | payer BC, SELFPAY ==
[2018-08-11 16:21] VITALS: BMI 37.8
[2018-10-09 11:10] VITALS: BMI 38.0
[2018-10-09 13:17] LABS: Thyroid Stim Hormone (TSH) 2.18 uIU/mL (0.358-3.74)
== END ==
PROVIDERS: Family Provider Nurse Practitioner Family; PCP Nurse Practitioner Family; Referring Provider Nurse Practitioner Family; Visit Provider Nurse Practitioner Family
DX: Z13.29 Encounter for screening for other suspected endocrine disorder (principal)
CPT/HCPCS: 36415; 84443

== ENCOUNTER → 2018-11-06 14:57 | Outpatient (CLI) | payer BC, SELFPAY ==
[2018-11-06 14:10] VITALS: BMI 38.5
[2018-11-06 16:03] LABS: BNP,B-Type NATRIURETIC PEPTIDE 16.8 pg/mL (0-100)
== END ==
PROVIDERS: Family Provider Nurse Practitioner Family; PCP Nurse Practitioner Family; Referring Provider Physician Assistant Medical; Visit Provider Physician Assistant Medical
DX: R06.09 Other forms of dyspnea (principal); I42.8 Other cardiomyopathies
CPT/HCPCS: 36415; 83880

== ENCOUNTER → 2018-12-04 13:47 | Outpatient (CLI) | payer BC, SELFPAY ==
[2018-11-06 14:10] VITALS: BMI 38.5
--- NOTE | 2018-12-04 13:49 | ECHOD_ITS ---
Reason For Study: dyspnea Procedure This was a 2D Doppler, Color Flow transthoracic echocardiogram. Exam performed in department. Left Ventricle Normal LV size. The estimated ejection fraction is 40 %. Septal motion consistent with IVCD. Stage 2 diastolic dysfunction. There is mild to moderate global hypokinesis of the left ventricle. Right Ventricle Normal RV size. Normal systolic function. Atria Normal left atrium. Normal right atrium. Mitral Valve Normal mitral valve. Tricuspid Valve Normal tricuspid valve. Mild (1+) tricuspid valve insufficiency. Pulmonary artery systolic pressure is 23 mmHg. Aortic Valve Normal aortic valve. Pulmonic Valve Normal pulmonic valve. Great Vessels Normal aortic root. The pulmonary artery is normal size. Normal inferior vena cava. Pericardium/Pleural No pericardial effusion. MMode/2D Measurements & Calculations LVIDd: 4.7 cm IVSd: 1.2 cm Ao root diam: 3.0 cm LVIDs: 3.8 cm LVPWd: 1.2 cm RVDd: 3.5 cm FS: 19.2 % LAV(MOD-bp): 49.1 ml LA A4 area: 16.9 cm2 LA dimension(2D): 4.1 cm LAV(MOD-bp) Indexed: 22.9 ml/m2 LAV(MOD-sp2): 50.7 ml LAV(MOD-sp4): 47.1 ml RA A4 area: 12.0 cm2 Time Measurements MV dec time: 0.18 sec Doppler Measurements & Calculations MV E max austin: 97.6 cm/sec Lat Peak E' Austin: 8.3 cm/sec Med Peak E' Austin: 4.5 cm/sec MV A max austin: 110.5 cm/sec E/E' lat: 11.7 E/E' med: 21.9 MV E/A: 0.88 Ao V2 max: 161.4 cm/sec LV V1 max: 105.4 cm/sec PA V2 max: 139.5 cm/sec Ao max P.4 mmHg LV V1 max P.4 mmHg TR max austin: 216.5 cm/sec TR max P.8 mmHg Interpretation Summary Normal LV size. The estimated ejection fraction is 40 %. There is mild to moderate global hypokinesis of the left ventricle. Septal motion consistent with IVCD. Stage 2 diastolic dysfunction. Mild (1+) tricuspid valve insufficiency. Compared to previous study, the left ventricular systolic function is the same.. Ordering Physician: Darcy Messina/Cristino Villaseñor Referring Physician: kesha espinal,, EARLY CHILDHOOD Performed By: César ZUÑIGA RVT, Carrie and Student
== END ==
PROVIDERS: Family Provider Nurse Practitioner Family; PCP Nurse Practitioner Family; Referring Provider Physician Assistant Medical; Visit Provider Physician Assistant Medical
DX: I42.8 Other cardiomyopathies (principal); R06.00 Dyspnea, unspecified
CPT/HCPCS: 93306

== ENCOUNTER → 2019-01-27 10:39 | Outpatient (CLI) | payer BC, SELFPAY ==
[2018-11-06 14:10] VITALS: BMI 38.5
[2019-01-27 11:39] LABS: Anion Gap 5 (5-15); BUN 18 mg/dL (7-18); BUN/Creat Ratio 17.8 RATIO (10-20); Calcium,Total 8.4 mg/dL (8.5-10.1); Chloride 103 mmol/L (98-107); Creatinine, Serum 1.01 mg/dL (0.55-1.02); EST Glomerular Filtration Rate 59 mL/min (>60); Est Glom Filt Rate - Afr Amer 71 mL/min (>60); Glucose 140 mg/dL (74-106); Potassium 3.7 mmol/L (3.5-5.1); Sodium Level 140 mmol/L (136-145)
== END ==
PROVIDERS: Family Provider Nurse Practitioner Family; PCP Nurse Practitioner Family; Referring Provider Physician Assistant Medical; Visit Provider Physician Assistant Medical
DX: I42.9 Cardiomyopathy, unspecified (principal)
CPT/HCPCS: 36415; 80048

== ENCOUNTER → 2019-03-19 10:37 | Outpatient (CLI) | payer BC, SELFPAY ==
[2019-02-13 08:41] VITALS: BMI 38.0
[2019-03-19 12:36] LABS: ALB/GLOB Ratio 0.9 RATIO (0.9-2.4); AST(SGOT) 36 U/L (15-37); Alanine Aminotransfer ALT/SGPT 49 U/L (13-56); Albumin, Serum 3.6 g/dL (3.2-5.0); Alkaline Phosphatase 57 U/L (45-117); Anion Gap 7 (5-15); BUN 19 mg/dL (7-18); Calcium,Total 8.7 mg/dL (8.5-10.1); Chloride 103 mmol/L (98-107); Cholesterol 129 mg/dL (200); EST Glomerular Filtration Rate 59 mL/min (>60); Est Glom Filt Rate - Afr Amer 72 mL/min (>60); Globulin 3.8 g/dL (2.2-4.2); Glucose 137 mg/dL (74-106); High Density Lipoprotein 36 mg/dL; Potassium 4.1 mmol/L (3.5-5.1); Protein, Total 7.4 g/dL (6.4-8.2); Sodium Level 142 mmol/L (136-145); Triglycerides 138 mg/dL; Very Low Density Lipoprotein 28 mg/dL (5-40)
[2019-03-19 12:37] LABS: Vitamin D,25 Hydroxy 27.6 ng/mL (29.95-100.01)
[2019-03-19 12:54] LABS: Absolute Lymphocyte Count 2.18 X10^3/uL (0.83-4.51); Absolute Neutrophil Count 2.8 X10^3/uL (2.0-7.7); Basophil# 0.04 X10^3/uL; Basophil% 0.7 % (0-1); Eosinophil# 0.16 X10^3/uL; Eosinophils% 2.8 % (0-5); Hematocrit 39.4 % (37-47); Hemoglobin 13.3 g/dL (12.0-15.0); Lymphocyte # 2.18 X10^3/ul (4.0); Lymphocyte % 38.2 % (19-41); Mean Corp Hgb Conc 33.8 g/dL (32-36); Mean Corpuscular Hgb 31.3 pg (27.0-32.0); Mean Corpuscular Volume 92.7 fL (81-99); Mean Platelet Vol. 11.1 fl (6.2-12.0); Monocyte# 0.46 X10^3/uL; Monocyte% 8.1 % (0-10); NRBC Flagged by Analyzer 0 % (0-5); Neutrophil # 2.83 X10^3/uL (2.7-7.7); Neutrophil % 49.5 % (47-70); Platelet Count 201 K/mm3 (150-450); RBC Distribution Width CV 12.9 % (11.6-14.6); RBC Distribution Width SD 43.2 fl (35.1-43.9); Red Blood Count 4.25 M/mm3 (4.2-5.4); White Blood Count 5.7 K/mm3 (4.4-11.0)
== END ==
PROVIDERS: Family Provider Nurse Practitioner Family; PCP Nurse Practitioner Family; Referring Provider Nurse Practitioner Family; Visit Provider Nurse Practitioner Family
DX: L40.59 Other psoriatic arthropathy (principal); M79.7 Fibromyalgia; M18.0 Bilateral primary osteoarthritis of first carpometacarpal joints; K76.0 Fatty (change of) liver, not elsewhere classified; E11.9 Type 2 diabetes mellitus without complications; E78.2 Mixed hyperlipidemia; E55.9 Vitamin D deficiency, unspecified; I50.9 Heart failure, unspecified; K57.90 Diverticulosis of intestine, part unspecified, without perforation or abscess without bleeding; I87.2 Venous insufficiency (chronic) (peripheral); Z79.899 Other long term (current) drug therapy
CPT/HCPCS: 36415; 80053; 80061; 82306; 83036; 85025

== ENCOUNTER → 2019-07-06 13:37 | Outpatient (CLI) | payer BC, SELFPAY ==
[2019-02-13 08:41] VITALS: BMI 38.0
[2019-07-06 16:13] LABS: Absolute Lymphocyte Count 2.45 X10^3/uL (0.83-4.51); Absolute Neutrophil Count 3.8 X10^3/uL (2.0-7.7); Basophil# 0.08 X10^3/uL; Basophil% 1.1 % (0-1); Eosinophil# 0.29 X10^3/uL; Hematocrit 42.2 % (37-47); Hemoglobin 14.2 g/dL (12.0-15.0); Lymphocyte # 2.45 X10^3/ul (4.0); Lymphocyte % 34.1 % (19-41); Mean Corp Hgb Conc 33.6 g/dL (32-36); Mean Corpuscular Hgb 31.2 pg (27.0-32.0); Mean Corpuscular Volume 92.7 fL (81-99); Monocyte# 0.47 X10^3/uL; Monocyte% 6.5 % (0-10); NRBC Flagged by Analyzer 0 % (0-5); Platelet Count 257 K/mm3 (150-450); RBC Distribution Width CV 12.6 % (11.6-14.6); RBC Distribution Width SD 42.8 fl (35.1-43.9); Red Blood Count 4.55 M/mm3 (4.2-5.4); White Blood Count 7.2 K/mm3 (4.4-11.0)
[2019-07-06 16:23] LABS: ALB/GLOB Ratio 0.9 RATIO (0.9-2.4); AST(SGOT) 27 U/L (15-37); Alanine Aminotransfer ALT/SGPT 40 U/L (13-56); Albumin, Serum 3.6 g/dL (3.2-5.0); Alkaline Phosphatase 65 U/L (45-117); Anion Gap 8 (5-15); BUN 14 mg/dL (7-18); BUN/Creat Ratio 15.2 RATIO (10-20); Calcium,Total 8.5 mg/dL (8.5-10.1); Chloride 104 mmol/L (98-107); Creatinine, Serum 0.92 mg/dL (0.55-1.02); EST Glomerular Filtration Rate 65 mL/min (>60); Est Glom Filt Rate - Afr Amer 79 mL/min (>60); Globulin 4.1 g/dL (2.2-4.2); Glucose 179 mg/dL (74-106); Potassium 3.6 mmol/L (3.5-5.1); Protein, Total 7.7 g/dL (6.4-8.2); Sodium Level 141 mmol/L (136-145)
== END ==
PROVIDERS: Family Provider Nurse Practitioner Family; PCP Nurse Practitioner Family; Referring Provider Internal Medicine Rheumatology; Visit Provider Internal Medicine Rheumatology
DX: L40.59 Other psoriatic arthropathy (principal); M18.0 Bilateral primary osteoarthritis of first carpometacarpal joints; M79.7 Fibromyalgia; Z79.899 Other long term (current) drug therapy
CPT/HCPCS: 36415; 80053; 85025

== ENCOUNTER → 2019-12-02 14:16 | Outpatient (CLI) | payer BC, SELFPAY ==
[2019-07-30 13:21] VITALS: BMI 39.0
[2019-12-02 15:27] LABS: Absolute Lymphocyte Count 2.57 X10^3/uL (0.83-4.51); Absolute Neutrophil Count 3.3 X10^3/uL (2.0-7.7); Basophil# 0.04 X10^3/uL; Basophil% 0.6 % (0-1); Eosinophil# 0.21 X10^3/uL; Eosinophils% 3.1 % (0-5); Hematocrit 39.4 % (37-47); Hemoglobin 13.4 g/dL (12.0-15.0); Lymphocyte # 2.57 X10^3/ul (4.0); Lymphocyte % 38.5 % (19-41); Mean Corpuscular Hgb 31.2 pg (27.0-32.0); Mean Corpuscular Volume 91.8 fL (81-99); Mean Platelet Vol. 10.8 fl (6.2-12.0); Monocyte% 7.5 % (0-10); NRBC Flagged by Analyzer 0 % (0-5); Neutrophil # 3.32 X10^3/uL (2.7-7.7); Neutrophil % 49.9 % (47-70); Platelet Count 225 K/mm3 (150-450); RBC Distribution Width CV 12.8 % (11.6-14.6); RBC Distribution Width SD 42.2 fl (35.1-43.9); Red Blood Count 4.29 M/mm3 (4.2-5.4); White Blood Count 6.7 K/mm3 (4.4-11.0)
[2019-12-02 15:53] LABS: AST(SGOT) 36 U/L (15-37); Alanine Aminotransfer ALT/SGPT 43 U/L (13-56); Albumin, Serum 3.8 g/dL (3.2-5.0); Alkaline Phosphatase 52 U/L (45-117); Anion Gap 3 (5-15); BUN 17 mg/dL (7-18); BUN/Creat Ratio 17.1 RATIO (10-20); Calcium,Total 8.6 mg/dL (8.5-10.1); Chloride 105 mmol/L (98-107); Creatinine, Serum 0.99 mg/dL (0.55-1.02); EST Glomerular Filtration Rate 59 mL/min (>60); Est Glom Filt Rate - Afr Amer 72 mL/min (>60); Globulin 3.7 g/dL (2.2-4.2); Glucose 115 mg/dL (74-106); Potassium 3.4 mmol/L (3.5-5.1); Protein, Total 7.5 g/dL (6.4-8.2); Sodium Level 140 mmol/L (136-145)
== END ==
PROVIDERS: PCP Nurse Practitioner Family; Referring Provider Internal Medicine Rheumatology; Visit Provider Internal Medicine Rheumatology
DX: L40.59 Other psoriatic arthropathy (principal); M79.7 Fibromyalgia; M18.0 Bilateral primary osteoarthritis of first carpometacarpal joints; L40.8 Other psoriasis; K76.0 Fatty (change of) liver, not elsewhere classified; E78.5 Hyperlipidemia, unspecified; I10 Essential (primary) hypertension; Z79.899 Other long term (current) drug therapy
CPT/HCPCS: 36415; 80053; 85025

== ENCOUNTER → 2020-02-03 08:35 | Outpatient (CLI) | payer BC, MEDICARE, OTHER, SELFPAY ==
[2019-07-30 13:21] VITALS: BMI 39.0
[2020-02-06 20:07] LABS: QNTFERON TB Mitogen Value > 10.00 IU/mL (.); QNTFERON TB Nil Value 0.04 IU/mL (.); QNTFERON TB1+ Ag Value 0.04 IU/mL (.); QNTFERON TB2+ Ag Value 0.05 IU/mL (.)
[2020-02-07 00:26] LABS: QNTIFERON TB Positive Criteria Negative (Negative)
== END ==
PROVIDERS: PCP Nurse Practitioner Family; Referring Provider Internal Medicine Rheumatology; Visit Provider Internal Medicine Rheumatology
DX: L40.59 Other psoriatic arthropathy (principal); M79.7 Fibromyalgia; L40.8 Other psoriasis; K76.0 Fatty (change of) liver, not elsewhere classified; E78.5 Hyperlipidemia, unspecified; E11.9 Type 2 diabetes mellitus without complications; I50.9 Heart failure, unspecified; K57.90 Diverticulosis of intestine, part unspecified, without perforation or abscess without bleeding; I87.2 Venous insufficiency (chronic) (peripheral); I44.7 Left bundle-branch block, unspecified; M18.0 Bilateral primary osteoarthritis of first carpometacarpal joints; Z95.0 Presence of cardiac pacemaker; Z79.899 Other long term (current) drug therapy
CPT/HCPCS: 36415; 86480

== ENCOUNTER → 2020-03-11 10:53 | Outpatient (CLI) | payer MEDICARE, OTHER, SELFPAY ==
[2020-03-03 15:21] VITALS: BMI 38.5
[2020-03-11 10:59] VITALS: BP 186/82; PULSE 70; RESP 16; TEMP 36.8; O2SAT 95; BMI 37.9
[2020-03-11] MEDS: 0.9% NaCl Peripheral Flush Adult/Peds IV (11:19)
[2020-03-11] MEDS: 0.9% NaCl IVPB Med Flush (250 mL) 15 ML IV (11:19)
[2020-03-11 12:21] VITALS: BP 145/70; PULSE 59; RESP 16; O2SAT 94
== END ==
PROVIDERS: PCP Nurse Practitioner Family; Referring Provider Internal Medicine Rheumatology; Visit Provider Internal Medicine Rheumatology
DX: L40.59 Other psoriatic arthropathy (principal)
CPT/HCPCS: 96413; J7050; A4216; J1602

== ENCOUNTER → 2020-03-30 10:27 | Outpatient (CLI) | payer MEDICARE, OTHER, SELFPAY ==
[2020-03-11 10:59] VITALS: BMI 37.9
[2020-03-30 11:57] LABS: Absolute Lymphocyte Count 3.32 X10^3/uL (0.83-4.51); Absolute Neutrophil Count 5.3 X10^3/uL (2.0-7.7); Basophil# 0.05 X10^3/uL; Basophil% 0.5 % (0-1); Eosinophil# 0.12 X10^3/uL; Eosinophils% 1.3 % (0-5); Hematocrit 43.6 % (37-47); Hemoglobin 14.6 g/dL (12.0-15.0); Lymphocyte # 3.32 X10^3/ul (4.0); Lymphocyte % 34.7 % (19-41); Mean Corp Hgb Conc 33.5 g/dL (32-36); Mean Corpuscular Hgb 31.1 pg (27.0-32.0); Mean Platelet Vol. 10.7 fl (6.2-12.0); Monocyte# 0.69 X10^3/uL; Monocyte% 7.2 % (0-10); NRBC Flagged by Analyzer 0 % (0-5); Neutrophil # 5.34 X10^3/uL (2.7-7.7); Neutrophil % 55.7 % (47-70); Platelet Count 304 K/mm3 (150-450); RBC Distribution Width CV 12.9 % (11.6-14.6); RBC Distribution Width SD 43.2 fl (35.1-43.9); Red Blood Count 4.69 M/mm3 (4.2-5.4); White Blood Count 9.6 K/mm3 (4.4-11.0)
[2020-03-30 12:07] LABS: ALB/GLOB Ratio 0.9 RATIO (0.9-2.4); AST(SGOT) 16 U/L (15-37); Alanine Aminotransfer ALT/SGPT 32 U/L (13-56); Albumin, Serum 3.6 g/dL (3.2-5.0); Alkaline Phosphatase 53 U/L (45-117); Anion Gap 4 (5-15); BUN 22 mg/dL (7-18); BUN/Creat Ratio 24.6 RATIO (10-20); Calcium,Total 8.7 mg/dL (8.5-10.1); Chloride 104 mmol/L (98-107); Cholesterol 261 mg/dL (200); Creatinine, Serum 0.89 mg/dL (0.55-1.02); EST Glomerular Filtration Rate 67 mL/min (>60); Est Glom Filt Rate - Afr Amer 81 mL/min (>60); Glucose 77 mg/dL (74-106); High Density Lipoprotein 46 mg/dL; Potassium 3.7 mmol/L (3.5-5.1); Protein, Total 7.6 g/dL (6.4-8.2); Sodium Level 140 mmol/L (136-145); Triglycerides 144 mg/dL; Very Low Density Lipoprotein 29 mg/dL (5-40)
[2020-03-30 12:13] LABS: Hemoglobin A1c 6.3 % (3.8-5.6)
== END ==
PROVIDERS: PCP Nurse Practitioner Family; Referring Provider Nurse Practitioner Family; Visit Provider Nurse Practitioner Family
DX: E78.2 Mixed hyperlipidemia (principal); E55.9 Vitamin D deficiency, unspecified; E11.9 Type 2 diabetes mellitus without complications; L40.59 Other psoriatic arthropathy; M79.7 Fibromyalgia; M18.0 Bilateral primary osteoarthritis of first carpometacarpal joints; L40.8 Other psoriasis; K76.0 Fatty (change of) liver, not elsewhere classified; I11.0 Hypertensive heart disease with heart failure; I50.9 Heart failure, unspecified; K57.90 Diverticulosis of intestine, part unspecified, without perforation or abscess without bleeding; I87.2 Venous insufficiency (chronic) (peripheral); I44.7 Left bundle-branch block, unspecified; Z95.0 Presence of cardiac pacemaker; Z79.899 Other long term (current) drug therapy
CPT/HCPCS: 80053; 80061; 82306; 83036; 85025

== ENCOUNTER → 2020-04-08 10:55 | Outpatient (CLI) | payer MEDICARE, OTHER, SELFPAY ==
[2020-03-03 15:21] VITALS: BMI 38.5
[2020-03-11 10:59] VITALS: BMI 37.9
[2020-04-08 11:01] VITALS: BP 161/88; PULSE 60; RESP 18; TEMP 36.3; O2SAT 96; BMI 38.9
[2020-04-08] MEDS: 0.9% NaCl Peripheral Flush Adult/Peds IV (11:27)
[2020-04-08] MEDS: 0.9% NaCl IVPB Med Flush (250 mL) 15 ML IV (11:28)
[2020-04-08 12:31] VITALS: BP 123/57; PULSE 78; RESP 16; TEMP 36.1; O2SAT 97
== END ==
PROVIDERS: PCP Nurse Practitioner Family; Referring Provider Internal Medicine Rheumatology; Visit Provider Internal Medicine Rheumatology
DX: L40.59 Other psoriatic arthropathy (principal)
CPT/HCPCS: 96365; 96413; J7050; A4216; J1602

== ENCOUNTER → 2020-06-02 11:09 | Outpatient (CLI) | payer MEDICARE, OTHER, SELFPAY ==
[2020-03-11 10:59] VITALS: BMI 37.9
[2020-04-08 11:01] VITALS: BMI 38.9
[2020-06-02 11:21] VITALS: BP 150/61; PULSE 59; RESP 18; TEMP 36.3; O2SAT 96; BMI 38.1
[2020-06-02] MEDS: 0.9% NaCl Peripheral Flush Adult/Peds IV (11:41)
[2020-06-02] MEDS: 0.9% NaCl IVPB Med Flush (250 mL) 15 ML IV (11:42)
[2020-06-02 12:18] VITALS: BP 153/65; PULSE 60; RESP 18; TEMP 36
== END ==
PROVIDERS: PCP Nurse Practitioner Family; Referring Provider Internal Medicine Rheumatology; Visit Provider Internal Medicine Rheumatology
DX: L40.59 Other psoriatic arthropathy (principal)
CPT/HCPCS: 96365; 96413; J7050; A4216; J1602

== ENCOUNTER → 2020-07-25 12:38 | Outpatient (CLI) | payer MEDICARE, OTHER, SELFPAY ==
[2020-06-02 11:21] VITALS: BMI 38.1
[2020-07-25 15:15] LABS: Absolute Lymphocyte Count 3.04 X10^3/uL (0.83-4.51); Absolute Neutrophil Count 4.9 X10^3/uL (2.0-7.7); Basophil# 0.08 X10^3/uL; Basophil% 0.9 % (0-1); Eosinophil# 0.25 X10^3/uL; Eosinophils% 2.8 % (0-5); Hematocrit 42.8 % (37-47); Hemoglobin 14.1 g/dL (12.0-15.0); Lymphocyte # 3.04 X10^3/ul (4.0); Lymphocyte % 33.7 % (19-41); Mean Corp Hgb Conc 32.9 g/dL (32-36); Mean Corpuscular Volume 94.1 fL (81-99); Mean Platelet Vol. 11.3 fl (6.2-12.0); Monocyte# 0.74 X10^3/uL; Monocyte% 8.2 % (0-10); NRBC Flagged by Analyzer 0 % (0-5); Neutrophil # 4.87 X10^3/uL (2.7-7.7); Platelet Count 292 K/mm3 (150-450); RBC Distribution Width CV 12.4 % (11.6-14.6); RBC Distribution Width SD 42.9 fl (35.1-43.9); Red Blood Count 4.55 M/mm3 (4.2-5.4)
[2020-07-25 15:29] LABS: AST(SGOT) 20 U/L (15-37); Alanine Aminotransfer ALT/SGPT 33 U/L (13-56); Albumin, Serum 3.8 g/dL (3.2-5.0); Alkaline Phosphatase 58 U/L (45-117); Anion Gap 3 (5-15); BUN 17 mg/dL (7-18); BUN/Creat Ratio 16.7 RATIO (10-20); Calcium,Total 9.2 mg/dL (8.5-10.1); Chloride 102 mmol/L (98-107); Creatinine, Serum 1.02 mg/dL (0.55-1.02); EST Glomerular Filtration Rate 58 mL/min (>60); Est Glom Filt Rate - Afr Amer 70 mL/min (>60); Globulin 3.7 g/dL (2.2-4.2); Glucose 133 mg/dL (74-106); Potassium 3.3 mmol/L (3.5-5.1); Protein, Total 7.5 g/dL (6.4-8.2); Sodium Level 141 mmol/L (136-145)
== END ==
PROVIDERS: PCP Nurse Practitioner Family; Referring Provider Internal Medicine Rheumatology; Visit Provider Internal Medicine Rheumatology
DX: L40.59 Other psoriatic arthropathy (principal); M79.7 Fibromyalgia; M18.0 Bilateral primary osteoarthritis of first carpometacarpal joints; L40.8 Other psoriasis; K76.0 Fatty (change of) liver, not elsewhere classified; E78.5 Hyperlipidemia, unspecified; I10 Essential (primary) hypertension; Z79.899 Other long term (current) drug therapy
CPT/HCPCS: 36415; 80053; 85025

== ENCOUNTER → 2020-07-28 11:03 | Outpatient (CLI) | payer MEDICARE, OTHER, SELFPAY ==
[2020-04-08 11:01] VITALS: BMI 38.9
[2020-06-02 11:21] VITALS: BMI 38.1
[2020-07-28 11:18] VITALS: BP 182/81; PULSE 63; RESP 16; TEMP 36.1; O2SAT 95; BMI 39.2
[2020-07-28] MEDS: 0.9% NaCl IVPB Med Flush (250 mL) 15 ML IV (11:32)
[2020-07-28] MEDS: 0.9% NaCl Peripheral Flush Adult/Peds IV (11:32)
[2020-07-28 12:34] VITALS: BP 153/73; PULSE 60; RESP 16; TEMP 35.9; O2SAT 93
== END ==
PROVIDERS: PCP Nurse Practitioner Family; Referring Provider Internal Medicine Rheumatology; Visit Provider Internal Medicine Rheumatology
DX: L40.59 Other psoriatic arthropathy (principal)
CPT/HCPCS: 96413; J7050; A4216; J1602

== ENCOUNTER → 2020-08-03 13:42 | Outpatient (CLI) | payer MEDICARE, OTHER, SELFPAY ==
[2020-07-28 11:18] VITALS: BMI 39.2
--- NOTE | 2020-08-03 13:59 | RAD_ITS ---
STUDY: X-RAY CHEST REASON FOR EXAM: Female, 65 years old. Pt c/o SOB when walking long distances x 2 years, pain on right side of chest that goes anterior to posterior, stomach swells into chest, has pacemaker, takes HBP medication TECHNIQUE: PA and lateral views of the chest. COMPARISON: Comparison is made with prior study dated 08/12/2018. FINDINGS: Scattered calcified granulomas. No acute abnormality is seen. There is no demonstrated pleural abnormality. Normal size heart. A left-sided dual chamber pacemaker is present Normal mediastinum and sarah. Normal visualized pulmonary arteries. There is atherosclerotic calcification of the aortic arch with tortuosity. There are degenerative changes of the visualized thoracic spine. Normal visualized ribs, clavicles, and shoulders. There is no demonstrated abnormality of the visualized soft tissue structures of the upper abdomen. RAD/Chest PA and Lateral IMPRESSION: Stable examination. No acute abnormality is seen. Electronically Signed: Ashkan Geiger, at 15:53 EST , Service support ,
[2020-08-03 15:11] LABS: BNP,B-Type NATRIURETIC PEPTIDE 23.2 pg/mL (0-100)
== END ==
PROVIDERS: PCP Nurse Practitioner Family; Visit Provider Internal Medicine Cardiovascular Disease
DX: I44.2 Atrioventricular block, complete (principal); I44.7 Left bundle-branch block, unspecified; I11.0 Hypertensive heart disease with heart failure; I50.42 Chronic combined systolic (congestive) and diastolic (congestive) heart failure; I42.8 Other cardiomyopathies; E78.5 Hyperlipidemia, unspecified; Z95.0 Presence of cardiac pacemaker
CPT/HCPCS: 36415; 71046; 83880

== ENCOUNTER → 2020-09-22 10:57 | Outpatient (CLI) | payer MEDICARE, OTHER, SELFPAY ==
[2020-06-02 11:21] VITALS: BMI 38.1
[2020-07-28 11:18] VITALS: BMI 39.2
[2020-09-22 11:05] VITALS: BP 144/64; PULSE 60; RESP 18; TEMP 36.2; O2SAT 95; BMI 38.7
[2020-09-22] MEDS: 0.9% NaCl Peripheral Flush Adult/Peds IV (11:18)
[2020-09-22] MEDS: 0.9% NaCl IVPB Med Flush (250 mL) 15 ML IV (11:28)
[2020-09-22 12:23] VITALS: BP 140/68; PULSE 60; RESP 16; TEMP 37.2; O2SAT 90
== END ==
PROVIDERS: PCP Nurse Practitioner Family; Referring Provider Internal Medicine Rheumatology; Visit Provider Internal Medicine Rheumatology
DX: L40.59 Other psoriatic arthropathy (principal)
CPT/HCPCS: 96413; J7050; A4216; J1602

== ENCOUNTER → 2020-11-17 10:59 | Outpatient (CLI) | payer MEDICARE, OTHER, SELFPAY ==
[2020-07-28 11:18] VITALS: BMI 39.2
[2020-11-01 14:11] VITALS: BMI 38.4
[2020-11-17 11:19] VITALS: BP 178/80; PULSE 62; RESP 16; TEMP 36.1; O2SAT 96; BMI 38.4
[2020-11-17] MEDS: 0.9% NaCl Peripheral Flush Adult/Peds IV (11:36)
[2020-11-17] MEDS: 0.9% NaCl IVPB Med Flush (250 mL) 15 ML IV (11:36)
[2020-11-17 12:57] VITALS: BP 130/85; PULSE 60; RESP 16; O2SAT 95
== END ==
PROVIDERS: PCP Nurse Practitioner Family; Referring Provider Internal Medicine Rheumatology; Visit Provider Internal Medicine Rheumatology
DX: L40.59 Other psoriatic arthropathy (principal)
CPT/HCPCS: 96365; 96413; J7050; A4216; J1602

== ENCOUNTER → 2020-12-02 13:11 | Outpatient (CLI) | payer MEDICARE, OTHER, SELFPAY ==
[2020-11-17 11:19] VITALS: BMI 38.4
--- NOTE | 2020-12-02 13:45 | MRI_ITS ---
STUDY: MRI LUMBAR SPINE WITHOUT CONTRAST REASON FOR EXAM: Female, 65 years old. Lumbar radiculopathy TECHNIQUE: Standardized fat and water weighted pulse sequences were obtained in the sagittal and axial planes. COMPARISON: None FINDINGS: T12-L1: Mild bilobed disc protrusion produces mild spinal stenosis but no neural foraminal stenosis. Normal lumbar lordosis. There is no substantial scoliosis. Normal conus medullaris that terminates at the L1. Acute microtrabecular stress reaction of the pedicles of L4 and L5 which can produce pain. L1-2: Normal endplates. Normal disc height, hydration and morphology. Normal bilateral facet joints. Normal central canal and bilateral lateral recesses. Normal bilateral intervertebral neural foramina. L2-3: Normal endplates. Normal disc height, hydration and morphology. Normal bilateral facet joints. Normal central canal and bilateral lateral recesses. Normal bilateral intervertebral neural foramina. L3-4: Normal endplates. Normal disc height, hydration and morphology. Normal bilateral facet joints. Normal central canal and bilateral lateral recesses. Normal bilateral intervertebral neural foramina. L4-5: Moderate bilateral facet hypertrophy with fluid in the facet joints consistent with instability and severe ligament flavum hypertrophy. Mild broad disc protrusion produces moderate spinal stenosis with moderate bilateral lateral recess stenosis with abutment of the L5 nerve roots bilaterally and moderate bilateral neural foraminal stenosis with abutment of the exiting L4 nerve roots bilaterally. L5-S1: Moderate size left foraminal disc osteophyte complex produces moderate left neural foraminal stenosis with abutment of the left L5 nerve root laterally. No central spinal stenosis. Normal visualized sacral ala. Severe friction related edema of the posterior subcutaneous fat. MRI/Spine Lumbar (Routine) IMPRESSION: 1. Multilevel degenerative changes, as described above. 2. Acute microtrabecular stress reaction of the pedicles of L4 and L5. Electronically Signed: Zander Short MD at 15:07 EDT Tel , Service support ,
[2020-12-02 14:07] VITALS: BP 151/90; PULSE 76; RESP 14; O2SAT 94
[2020-12-02 14:23] VITALS: BP 157/74; PULSE 67; O2SAT 93
== END ==
PROVIDERS: PCP Nurse Practitioner Family
DX: M51.26 Other intervertebral disc displacement, lumbar region (principal); M54.17 Radiculopathy, lumbosacral region
CPT/HCPCS: 72148

== ENCOUNTER → 2021-01-12 10:56 | Outpatient (CLI) | payer MEDICARE, OTHER, SELFPAY ==
[2020-11-01 14:11] VITALS: BMI 38.4
[2020-11-17 11:19] VITALS: BMI 38.4
[2021-01-12 11:01] VITALS: BP 162/71; PULSE 62; RESP 16; TEMP 35.8; O2SAT 95; BMI 39.4
[2021-01-12] MEDS: 0.9% NaCl IVPB Med Flush (250 mL) 15 ML IV (11:20)
[2021-01-12] MEDS: 0.9% NaCl Peripheral Flush Adult/Peds IV (11:20)
[2021-01-12 12:14] VITALS: BP 141/60; PULSE 59; TEMP 36.6
== END ==
PROVIDERS: PCP Nurse Practitioner Family; Referring Provider Internal Medicine Rheumatology; Visit Provider Internal Medicine Rheumatology
DX: L40.59 Other psoriatic arthropathy (principal)
CPT/HCPCS: 96365; J7050; A4216; J1602

== ENCOUNTER → 2021-01-18 10:57 | Outpatient (CLI) | payer MEDICARE, OTHER, SELFPAY ==
[2021-01-12 11:01] VITALS: BMI 39.4
[2021-01-18 14:57] LABS: Absolute Lymphocyte Count 2.93 X10^3/uL (0.83-4.51); Absolute Neutrophil Count 4.7 X10^3/uL (2.0-7.7); Basophil# 0.04 X10^3/uL; Basophil% 0.5 % (0-1); Eosinophil# 0.19 X10^3/uL; Eosinophils% 2.3 % (0-5); Hematocrit 40.6 % (37-47); Hemoglobin 13.5 g/dL (12.0-15.0); Lymphocyte # 2.93 X10^3/ul (0.83-4.51); Lymphocyte % 34.8 % (19-41); Mean Corp Hgb Conc 33.3 g/dL (32-36); Mean Corpuscular Volume 96.2 fL (81-99); Mean Platelet Vol. 10.7 fl (6.2-12.0); Monocyte# 0.52 X10^3/uL; Monocyte% 6.2 % (0-10); NRBC Flagged by Analyzer 0 % (0-5); Neutrophil # 4.69 X10^3/uL (2.7-7.7); Neutrophil % 55.7 % (47-70); Platelet Count 258 K/mm3 (150-450); RBC Distribution Width CV 12.5 % (11.6-14.6); RBC Distribution Width SD 43.6 fl (35.1-43.9); Red Blood Count 4.22 M/mm3 (4.2-5.4); White Blood Count 8.4 K/mm3 (4.4-11.0)
[2021-01-18 15:10] LABS: AST(SGOT) 18 U/L (15-37); Alanine Aminotransfer ALT/SGPT 32 U/L (13-56); Albumin, Serum 3.5 g/dL (3.2-5.0); Alkaline Phosphatase 45 U/L (45-117); Anion Gap 7 (5-15); BUN 19 mg/dL (7-18); BUN/Creat Ratio 17.6 RATIO (10-20); Calcium,Total 8.8 mg/dL (8.5-10.1); Chloride 100 mmol/L (98-107); Creatinine, Serum 1.08 mg/dL (0.55-1.02); EST Glomerular Filtration Rate 54 mL/min (>60); Est Glom Filt Rate - Afr Amer 65 mL/min (>60); Globulin 3.4 g/dL (2.2-4.2); Glucose 220 mg/dL (74-106); Potassium 3.2 mmol/L (3.5-5.1); Protein, Total 6.9 g/dL (6.4-8.2); Sodium Level 141 mmol/L (136-145)
== END ==
PROVIDERS: PCP Nurse Practitioner Family; Referring Provider Internal Medicine Rheumatology; Visit Provider Internal Medicine Rheumatology
DX: L40.59 Other psoriatic arthropathy (principal); M79.7 Fibromyalgia; M18.0 Bilateral primary osteoarthritis of first carpometacarpal joints; L40.8 Other psoriasis; K76.0 Fatty (change of) liver, not elsewhere classified; E78.5 Hyperlipidemia, unspecified; E11.9 Type 2 diabetes mellitus without complications; I11.0 Hypertensive heart disease with heart failure; I50.9 Heart failure, unspecified; K57.90 Diverticulosis of intestine, part unspecified, without perforation or abscess without bleeding; I87.2 Venous insufficiency (chronic) (peripheral); I44.7 Left bundle-branch block, unspecified; G47.33 Obstructive sleep apnea (adult) (pediatric); Z95.0 Presence of cardiac pacemaker; Z79.899 Other long term (current) drug therapy
CPT/HCPCS: 36415; 80053; 85025

== ENCOUNTER → 2021-02-02 10:19 | Outpatient (CLI) | payer MEDICARE, OTHER, SELFPAY ==
[2021-01-12 11:01] VITALS: BMI 39.4
--- NOTE | 2021-02-02 10:36 | MRI_ITS ---
STUDY: MRI CERVICAL SPINE WITHOUT CONTRAST REASON FOR EXAM: Female, 65 years old. cervical spinal stenosis TECHNIQUE: Standardized fat and water weighted pulse sequences were obtained in the sagittal and axial planes. COMPARISON: None FINDINGS: Normal foramen magnum and brainstem-cervical cord junction. Normal craniovertebral junction. Normal anterior atlantoaxial articulation. Normal odontoid process. Normal cervical lordosis. Normal vertebral bodies and posterior osseous elements. C2-3: Normal endplates. Normal disc height, signal and morphology. Normal central canal and intervertebral neural foramina. C3-4: Normal endplates. Normal disc height, signal and morphology. Normal central canal and intervertebral neural foramina. C4-5: Moderate sized central disc extrusion produces moderate spinal stenosis with abutment the central spinal cord but no neural foraminal stenosis. C5-6: Moderate broad disc osteophyte complex asymmetric to left produces moderate spinal stenosis with abutment of the spinal cord and mild bilateral neural foraminal stenosis. C6-7: Normal endplates. Normal disc height, signal and morphology. Normal central canal and intervertebral neural foramina. C7-T1: Normal endplates. Normal disc height, signal and morphology. Normal central canal and intervertebral neural foramina. Normal cervical cord. Normal visualized soft tissue structures. MRI/Spine Cervical (Routine) IMPRESSION: Multilevel degenerative changes, as described above. Electronically Signed: Zander Short MD at 11:05 EDT Tel , Service support ,
[2021-02-02 10:59] VITALS: BP 163/76; PULSE 79; RESP 16
[2021-02-02 11:11] VITALS: BP 169/71; PULSE 80; RESP 16
== END ==
PROVIDERS: PCP Nurse Practitioner Family
DX: M48.02 Spinal stenosis, cervical region (principal); M53.3 Sacrococcygeal disorders, not elsewhere classified; M46.1 Sacroiliitis, not elsewhere classified
CPT/HCPCS: 72141

== ENCOUNTER → 2021-03-09 10:58 | Outpatient (CLI) | payer MEDICARE, OTHER, SELFPAY ==
[2020-11-17 11:19] VITALS: BMI 38.4
[2021-01-12 11:01] VITALS: BMI 39.4
[2021-03-09 11:55] VITALS: BP 182/73; PULSE 64; RESP 16; TEMP 35.9; O2SAT 97; BMI 40.0
[2021-03-09] MEDS: 0.9% NaCl Peripheral Flush Adult/Peds IV (11:58)
[2021-03-09] MEDS: 0.9% NaCl IVPB Med Flush (250 mL) 15 ML IV (11:59)
[2021-03-09 12:59] VITALS: BP 182/92; PULSE 69; RESP 16; TEMP 36.6; O2SAT 93
== END ==
PROVIDERS: PCP Nurse Practitioner Family; Referring Provider Internal Medicine Rheumatology; Visit Provider Internal Medicine Rheumatology
DX: L40.59 Other psoriatic arthropathy (principal)
CPT/HCPCS: 96365; J7050; A4216; J1602

== ENCOUNTER → 2021-03-14 10:24 | Outpatient (CLI) | payer MEDICARE, OTHER, SELFPAY ==
[2021-03-14 09:28] VITALS: BMI 40.5
--- NOTE | 2021-03-14 10:29 | RAD_ITS ---
STUDY: X-RAY CHEST REASON FOR EXAM: Female, 66 years old. AYERS/CP TECHNIQUE: PA and lateral views of the chest. COMPARISON: Comparison is made with prior study dated 08/03/2020. FINDINGS: The lungs are clear and expanded. There is no demonstrated pleural abnormality. Normal size heart. A left-sided dual-chamber pacemaker is seen. Normal mediastinum and sarah. Normal visualized pulmonary arteries. There is atherosclerotic calcification of the aortic arch with tortuosity. There are diffuse degenerative changes of the visualized thoracic spine. Normal visualized ribs, clavicles, and shoulders. There is no demonstrated abnormality of the visualized soft tissue structures of the upper abdomen. RAD/Chest PA and Lateral IMPRESSION: No acute abnormality is seen. Electronically Signed: Ashkan Geiger MD at 22:26 EDT , Service support ,
[2021-03-14 12:02] LABS: Hemoglobin 14.2 g/dL (12.0-15.0); Mean Corp Hgb Conc 33.8 g/dL (32-36); Mean Corpuscular Hgb 31.7 pg (27.0-32.0); Mean Corpuscular Volume 93.8 fL (81-99); Mean Platelet Vol. 11.4 fl (6.2-12.0); Platelet Count 250 K/mm3 (150-450); RBC Distribution Width CV 12.1 % (11.6-14.6); RBC Distribution Width SD 42.1 fl (35.1-43.9); Red Blood Count 4.48 M/mm3 (4.2-5.4); White Blood Count 6.3 K/mm3 (4.4-11.0)
[2021-03-14 12:37] LABS: Anion Gap 8 (5-15); BUN 15 mg/dL (7-18); BUN/Creat Ratio 16.1 RATIO (10-20); Calcium,Total 8.7 mg/dL (8.5-10.1); Chloride 99 mmol/L (98-107); Creatinine, Serum 0.93 mg/dL (0.55-1.02); EST Glomerular Filtration Rate 64 mL/min (>60); Est Glom Filt Rate - Afr Amer 77 mL/min (>60); Glucose 225 mg/dL (74-106); Potassium 3.5 mmol/L (3.5-5.1); Sodium Level 139 mmol/L (136-145)
[2021-03-14 12:39] LABS: BNP,B-Type NATRIURETIC PEPTIDE 24.7 pg/mL (0-100)
== END ==
PROVIDERS: PCP Nurse Practitioner Family; Referring Provider Physician Assistant Medical; Visit Provider Physician Assistant Medical
DX: R07.9 Chest pain, unspecified (principal); I11.0 Hypertensive heart disease with heart failure; I50.42 Chronic combined systolic (congestive) and diastolic (congestive) heart failure; I42.8 Other cardiomyopathies; E78.00 Pure hypercholesterolemia, unspecified; Z95.0 Presence of cardiac pacemaker
CPT/HCPCS: 36415; 71046; 80048; 83880; 85027

== ENCOUNTER → 2021-04-10 06:29 | Outpatient (CLI) | payer MEDICARE, OTHER, SELFPAY ==
[2021-03-14 09:28] VITALS: BMI 40.5
--- NOTE | 2021-04-10 06:32 | ECHOCS_ITS ---
Reason For Study: Chest Pain Procedure This was a 2D Doppler, Color Flow transthoracic echocardiogram. The study was technically difficult. Contrast injection was performed. Exam performed in department. Left Ventricle Normal LV size. Moderate concentric left ventricular hypertrophy. The estimated ejection fraction is 37 %. Septal motion consistent with IVCD. [place] : Severely Hypokinetic. There is moderate global hypokinesis of the left ventricle. Right Ventricle Normal RV size. ICD or pacer leads identified within the right ventricle. Normal systolic function. Atria Normal left atrium. Normal right atrium. Mitral Valve Mild diffuse mitral valve thickening. Mild (1+) eccentric mitral valve insufficiency. Tricuspid Valve Normal tricuspid valve. Mild to moderate (1-2+) tricuspid valve insufficiency. Pulmonary artery systolic pressure is 40 mmHg. Aortic Valve The aortic valve is not well visualized. Pulmonic Valve The pulmonic valve is not well visualized. Great Vessels Normal aortic root. The pulmonary artery is normal size. Normal inferior vena cava. Pericardium/Pleural No pericardial effusion. Medication 22 gauge I.V. with prn adaptor inserted into right arm. Diluted definity 2ml given slow IV push to enhance endocardial definition. MMode/2D Measurements & Calculations LVIDd: 5.3 cm IVSd: 1.6 cm LA dimension: 4.1 cm LVIDs: 3.7 cm LVPWd: 1.5 cm FS: 30.5 % LAV(MOD-bp): 63.5 ml LVAd ap2: 43.4 cm2 SV(MOD-sp2): 60.6 ml LAV(MOD-bp) Indexed: 28.8 ml/m2 LVLd ap2: 8.9 cm LAV(MOD-sp2): 69.6 ml EDV(MOD-sp2): 171.7 ml LAV(MOD-sp4): 56.2 ml EDV(sp2-el): 180.6 ml LVAs ap2: 33.5 cm2 LVLs ap2: 8.3 cm ESV(MOD-sp2): 111.1 ml ESV(sp2-el): 114.8 ml EF(MOD-sp2): 35.3 % LA A4 area: 19.3 cm2 RA A4 area: 11.3 cm2 Time Measurements MV dec time: 0.25 sec Doppler Measurements & Calculations MV E max austin: 114.6 cm/sec Lat Peak E' Austin: 3.2 cm/sec Med Peak E' [place]: 4.5 cm/sec MV A max austin: 124.2 cm/sec E/E' lat: 35.5 E/E' med: 25.4 MV E/A: 0.92 MV V2 max: 165.0 cm/sec MV P1/2t max austin: 128.8 cm/sec Ao V2 max: 137.0 cm/sec MV max P.9 mmHg MV P1/2t: 76.7 msec Ao max P.5 mmHg MV V2 mean: 95.1 cm/sec MV mean P.2 mmHg MV dec slope: 492.0 cm/sec2 MV V2 VTI: 40.9 cm MVA(P1/2t): 2.9 cm2 LV V1 max: 91.1 cm/sec PA V2 max: 121.3 cm/sec TR max austin: 299.5 cm/sec LV V1 max P.3 mmHg TR max P.9 mmHg ECHO/Echo Complete W/ Contrast Interpretation Summary Normal LV size. Moderate concentric left ventricular hypertrophy. The estimated ejection fraction is 37 %. Septal motion consistent with IVCD. Contrast injection was performed. Ordering Physician: Darcy Messina Referring Physician: Brittanie Wheeler Performed By: Rich Guillen RCS
--- NOTE | 2021-04-10 15:44 | STRESSREP ---
Stress Test Report Pharmacologic myocardial perfusion stress test. 66-year-old lady with a history of chest pain. Medications pantoprazole atorvastatin furosemide carvedilol. Stress protocol: Resting EKG demonstrates normal sinus rhythm with a ventricular paced rhythm at 67 bpm normal intervals are noted resting blood pressure is 158/98 mmHg. 0.4 mg of regadenoson was infused per usual protocol followed by Intravenous saline flush injection continuous EKG monitoring was performed. The maximum heart rate attained was 92 bpm which was 60% of maximum predicted heart rate the maximum workload was 1 metabolic equivalent. At rest there were no ST or T wave changes noted to suggest abnormal flow reserve and at peak infusion nonspecific ST changes were noted with did not meet the criteria for abnormal flow reserve. Paced rhythm was noted throughout the infusion. Myocardial perfusion protocol. 15.0 mCi of technetium 99m sestamibi was injected at rest. 0.4 mg of regadenoson was infused per usual protocol at peak infusion 45.0 mCi of technetium 99m sestamibi was injected stress images were obtained stress and rest images were reconstructed and compared in the short axis vertical long and horizontal long axis. Gated images were also obtained per Perfusion SPECT analysis: Review of the stress images demonstrate normal uptake of tracer noted in all areas of the myocardium on the stress images except for the apex. There is a defect noted there. The resting images demonstrate a persistent defect noted in the apex. The rest of the rico are normally perfused. The above is suggestive of an apical infarct with wall motion abnormality present. Gated SPECT analysis: The gated ejection fraction is 41%. 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 No ischemia is noted. Pacemaker activity could account for some of these changes.
== END ==
PROVIDERS: PCP Nurse Practitioner Family; Referring Provider Physician Assistant Medical; Visit Provider Physician Assistant Medical
DX: R07.9 Chest pain, unspecified (principal); I11.0 Hypertensive heart disease with heart failure; I50.42 Chronic combined systolic (congestive) and diastolic (congestive) heart failure; E78.00 Pure hypercholesterolemia, unspecified; Z95.0 Presence of cardiac pacemaker
CPT/HCPCS: 78452; 93017; 93306; A9500; Q9957; A4216; C8929; J2785; J3490

== ENCOUNTER → 2021-05-11 11:10 | Outpatient (CLI) | payer MEDICARE, OTHER, SELFPAY ==
[2021-01-12 11:01] VITALS: BMI 39.4
[2021-05-11 11:25] VITALS: BP 159/59; PULSE 80; RESP 16; TEMP 36.1; O2SAT 95; BMI 38.5
[2021-05-11] MEDS: 0.9% NaCl Peripheral Flush Adult/Peds IV (11:36)
[2021-05-11] MEDS: 0.9% NaCl IVPB Med Flush (250 mL) 15 ML IV (11:42)
[2021-05-11 12:27] VITALS: BP 152/69; PULSE 78; RESP 16; TEMP 36.8; O2SAT 93
== END ==
PROVIDERS: PCP Nurse Practitioner Family; Referring Provider Internal Medicine Rheumatology; Visit Provider Internal Medicine Rheumatology
DX: L40.59 Other psoriatic arthropathy (principal)
CPT/HCPCS: 96365; J7050; A4216; J1602

== ENCOUNTER → 2021-07-07 10:30 | Outpatient (CLI) | payer MEDICARE, OTHER, SELFPAY ==
[2021-07-07 10:34] VITALS: BP 159/64; PULSE 69; RESP 18; TEMP 36.1; O2SAT 94; BMI 39.5
[2021-07-07] MEDS: 0.9% NaCl IVPB Med Flush (250 mL) 15 ML IV (10:44)
[2021-07-07] MEDS: 0.9% NaCl Peripheral Flush Adult/Peds IV (10:44)
[2021-07-07 11:46] VITALS: BP 143/71; PULSE 60; RESP 16
== END ==
PROVIDERS: PCP Nurse Practitioner Family; Referring Provider Internal Medicine Rheumatology; Visit Provider Internal Medicine Rheumatology
DX: L40.59 Other psoriatic arthropathy (principal)
CPT/HCPCS: 96365; J7050; A4216; J1602

== ENCOUNTER → 2021-07-18 12:17 | Outpatient (CLI) | payer MEDICARE, OTHER, SELFPAY ==
[2021-07-18 15:15] LABS: Absolute Lymphocyte Count 2.35 X10^3/uL (0.83-4.51); Absolute Neutrophil Count 3.3 X10^3/uL (2.0-7.7); Basophil# 0.06 X10^3/uL; Basophil% 0.9 % (0-1); Eosinophil# 0.28 X10^3/uL; Eosinophils% 4.3 % (0-5); Hematocrit 38.3 % (37-47); Hemoglobin 13.1 g/dL (12.0-15.0); Lymphocyte # 2.35 X10^3/ul (0.83-4.51); Lymphocyte % 36.4 % (19-41); Mean Corp Hgb Conc 34.2 g/dL (32-36); Mean Corpuscular Volume 90.5 fL (81-99); Mean Platelet Vol. 11.4 fl (6.2-12.0); Monocyte# 0.48 X10^3/uL; Monocyte% 7.4 % (0-10); NRBC Flagged by Analyzer 0 % (0-5); Neutrophil # 3.26 X10^3/uL (2.7-7.7); Neutrophil % 50.5 % (47-70); Platelet Count 229 K/mm3 (150-450); RBC Distribution Width CV 12.7 % (11.6-14.6); Red Blood Count 4.23 M/mm3 (4.2-5.4); White Blood Count 6.5 K/mm3 (4.4-11.0)
[2021-07-18 15:32] LABS: AST(SGOT) 29 U/L (15-37); Alanine Aminotransfer ALT/SGPT 41 U/L (13-56); Albumin, Serum 3.6 g/dL (3.2-5.0); Alkaline Phosphatase 62 U/L (45-117); Anion Gap 5 (5-15); BUN 14 mg/dL (7-18); BUN/Creat Ratio 14.6 RATIO (10-20); Calcium,Total 8.9 mg/dL (8.5-10.1); Chloride 105 mmol/L (98-107); Creatinine, Serum 0.96 mg/dL (0.55-1.02); EST Glomerular Filtration Rate 62 mL/min (>60); Est Glom Filt Rate - Afr Amer 75 mL/min (>60); Globulin 3.7 g/dL (2.2-4.2); Glucose 206 mg/dL (74-106); Potassium 3.5 mmol/L (3.5-5.1); Protein, Total 7.3 g/dL (6.4-8.2); Sodium Level 140 mmol/L (136-145)
== END ==
PROVIDERS: PCP Nurse Practitioner Family; Referring Provider Internal Medicine Rheumatology; Visit Provider Internal Medicine Rheumatology
DX: L40.59 Other psoriatic arthropathy (principal); M79.7 Fibromyalgia; M18.0 Bilateral primary osteoarthritis of first carpometacarpal joints; L40.8 Other psoriasis; K76.0 Fatty (change of) liver, not elsewhere classified; E78.5 Hyperlipidemia, unspecified; E11.9 Type 2 diabetes mellitus without complications; I11.0 Hypertensive heart disease with heart failure; I50.9 Heart failure, unspecified; K57.90 Diverticulosis of intestine, part unspecified, without perforation or abscess without bleeding; I87.2 Venous insufficiency (chronic) (peripheral); Z95.0 Presence of cardiac pacemaker; Z79.899 Other long term (current) drug therapy
CPT/HCPCS: 36415; 80053; 85025

== ENCOUNTER 2021-09-01 10:48 | Outpatient (CLI) | payer MEDICARE, OTHER, SELFPAY ==
[2021-09-01 11:07] VITALS: BP 144/68; PULSE 68; RESP 16; TEMP 35.8; O2SAT 95; BMI 38.7
[2021-09-01] MEDS: 0.9% NaCl Peripheral Flush Adult/Peds IV (11:19)
[2021-09-01] MEDS: 0.9% NaCl IVPB Med Flush (250 mL) 15 ML IV (11:19)
== END 2021-09-01 23:59 | disposition short-term general hospital (02) ==
LOC: MEDOUTP 10:50
PROVIDERS: PCP Nurse Practitioner Family; Referring Provider Internal Medicine Rheumatology; Visit Provider Internal Medicine Rheumatology
DX: L40.59 Other psoriatic arthropathy (principal)
CPT/HCPCS: 96365; J7050; A4216; J1602

== ENCOUNTER 2021-10-04 13:42 | Outpatient (CLI) | payer MEDICARE, OTHER, SELFPAY ==
[2021-10-04 15:35] LABS: Absolute Lymphocyte Count 3.28 X10^3/uL (0.83-4.51); Absolute Neutrophil Count 3.8 X10^3/uL (2.0-7.7); Basophil# 0.06 X10^3/uL; Basophil% 0.7 % (0-1); Eosinophil# 0.23 X10^3/uL; Eosinophils% 2.8 % (0-5); Hematocrit 42.6 % (37-47); Hemoglobin 14.4 g/dL (12.0-15.0); Lymphocyte # 3.28 X10^3/ul (0.83-4.51); Lymphocyte % 40.2 % (19-41); Mean Corp Hgb Conc 33.8 g/dL (32-36); Mean Corpuscular Hgb 30.1 pg (27.0-32.0); Mean Corpuscular Volume 88.9 fL (81-99); Monocyte# 0.75 X10^3/uL; Monocyte% 9.2 % (0-10); NRBC Flagged by Analyzer 0 % (0-5); Neutrophil % 46.7 % (47-70); Platelet Count 279 K/mm3 (150-450); RBC Distribution Width CV 13.2 % (11.6-14.6); RBC Distribution Width SD 42.6 fl (35.1-43.9); Red Blood Count 4.79 M/mm3 (4.2-5.4); White Blood Count 8.2 K/mm3 (4.4-11.0)
[2021-10-04 16:00] LABS: ALB/GLOB Ratio 0.9 RATIO (0.9-2.4); AST(SGOT) 27 U/L (15-37); Alanine Aminotransfer ALT/SGPT 36 U/L (13-56); Albumin, Serum 3.7 g/dL (3.2-5.0); Alkaline Phosphatase 66 U/L (45-117); Anion Gap 5 (5-15); BUN 16 mg/dL (7-18); BUN/Creat Ratio 15.7 RATIO (10-20); Calcium,Total 9.2 mg/dL (8.5-10.1); Chloride 100 mmol/L (98-107); Creatinine, Serum 1.02 mg/dL (0.55-1.02); EST Glomerular Filtration Rate 57 mL/min (>60); Est Glom Filt Rate - Afr Amer 69 mL/min (>60); Globulin 4.1 g/dL (2.2-4.2); Glucose 152 mg/dL (74-106); Potassium 3.8 mmol/L (3.5-5.1); Protein, Total 7.8 g/dL (6.4-8.2); Sodium Level 139 mmol/L (136-145)
== END 2021-10-04 23:59 | disposition home or self-care (01) ==
LOC: MTLAB 13:45
PROVIDERS: PCP Nurse Practitioner Family; Referring Provider Internal Medicine Rheumatology; Visit Provider Internal Medicine Rheumatology
DX: L40.59 Other psoriatic arthropathy (principal); I11.0 Hypertensive heart disease with heart failure; I50.9 Heart failure, unspecified; I42.8 Other cardiomyopathies; E11.9 Type 2 diabetes mellitus without complications; M79.7 Fibromyalgia; M18.0 Bilateral primary osteoarthritis of first carpometacarpal joints; L40.8 Other psoriasis; K76.0 Fatty (change of) liver, not elsewhere classified; E78.5 Hyperlipidemia, unspecified; K57.90 Diverticulosis of intestine, part unspecified, without perforation or abscess without bleeding; I87.2 Venous insufficiency (chronic) (peripheral); Z95.0 Presence of cardiac pacemaker; I44.7 Left bundle-branch block, unspecified; G47.33 Obstructive sleep apnea (adult) (pediatric); Z79.899 Other long term (current) drug therapy
CPT/HCPCS: 36415; 80053; 85025

== ENCOUNTER 2021-10-27 10:41 | Outpatient (CLI) | payer MEDICARE, OTHER, SELFPAY ==
[2021-10-27 10:46] VITALS: BP 182/75; PULSE 68; RESP 16; TEMP 36.3; O2SAT 95; BMI 37.0
[2021-10-27] MEDS: 0.9% NaCl Peripheral Flush Adult/Peds IV (10:59)
[2021-10-27] MEDS: 0.9% NaCl IVPB Med Flush (250 mL) 15 ML IV (11:00)
[2021-10-27 11:53] VITALS: BP 157/83; PULSE 60; RESP 16; TEMP 36.6
== END 2021-10-27 23:59 | disposition home or self-care (01) ==
LOC: MEDOUTP 10:42
PROVIDERS: PCP Nurse Practitioner Family; Referring Provider Internal Medicine Rheumatology; Visit Provider Internal Medicine Rheumatology
DX: L40.59 Other psoriatic arthropathy (principal)
CPT/HCPCS: 96365; J7050; A4216; J1602

== ENCOUNTER 2021-11-17 12:43 | Outpatient (CLI) | payer MEDICARE, OTHER, SELFPAY ==
--- NOTE | 2021-11-17 13:00 | MRI_ITS ---
STUDY: MRI ABDOMEN WITH AND WITHOUT CONTRAST REASON FOR EXAM: Female, 66 years old. RIGHT kidney lesion TECHNIQUE: Standardized fat and water weighted pulse sequences were obtained in all 3 orthogonal planes post contrast administration. IV 20 CC DOTAREM was administered for the contrast portion of the examination. COMPARISON: None. FINDINGS: The visualized lung bases are unremarkable. The visualized portions of the heart are within normal limits. Normal liver. There are surgical clips in the gallbladder fossa consistent with a prior cholecystectomy. Normal spleen. Normal pancreas. Normal bilateral adrenal glands. 1.5 cm T1 hyperintense cystic lesion in the midpole of the right kidney with no definite enhancement. Normal left kidney. Normal visualized stomach. Normal small intestine. There are multiple colonic diverticula consistent with diverticulosis. There is diffuse atherosclerotic calcification of the abdominal aorta with elongation and tortuosity. Normal inferior vena cava. Normal retroperitoneum. Normal abdominal wall. There are diffuse degenerative changes of the visualized lumbar spine. MRI/MRI Abd WITH and W/O Contrast IMPRESSION: 1.5 cm nonenhancing T1 hyperintense lesion in the midpole the right kidney is mostly a hemorrhagic or proteinaceous cyst. Recommend follow-up renal ultrasound in 6-12 months. Electronically Signed: Jerod Bolaños MD at 17:05 EDT ,
[2021-11-17 13:12] VITALS: BP 158/78; PULSE 80; RESP 18; O2SAT 92
== END 2021-11-17 23:59 | disposition home or self-care (01) ==
PROVIDERS: PCP Nurse Practitioner Family; Referring Provider Internal Medicine; Visit Provider Internal Medicine
DX: N28.9 Disorder of kidney and ureter, unspecified (principal)
CPT/HCPCS: 74183; A9575

== ENCOUNTER → 2021-12-22 | Outpatient (CLI) | payer MEDICARE, OTHER, SELFPAY ==
[2021-12-22 11:10] VITALS: BP 152/77; PULSE 74; RESP 18; TEMP 35.9; O2SAT 95; BMI 37.2
[2021-12-22] MEDS: 0.9% NaCl Peripheral Flush Adult/Peds IV (11:29)
[2021-12-22] MEDS: 0.9% NaCl IVPB Med Flush (250 mL) 15 ML IV (11:31)
[2021-12-22 12:26] VITALS: BP 138/92; PULSE 59; RESP 16; TEMP 35.8
== END | disposition home or self-care (01) ==
LOC: MEDOUTP 10:56
PROVIDERS: PCP Nurse Practitioner Family; Referring Provider Internal Medicine Rheumatology; Visit Provider Internal Medicine Rheumatology
DX: L40.59 Other psoriatic arthropathy (principal)
CPT/HCPCS: 96365; J7050; A4216; J1602

== ENCOUNTER → 2022-02-16 | Outpatient (CLI) | payer MEDICARE, OTHER, SELFPAY ==
[2022-02-16 11:02] VITALS: BP 160/75; PULSE 75; RESP 16; TEMP 36.7; O2SAT 95; BMI 37.1
[2022-02-16] MEDS: 0.9% NaCl Peripheral Flush Adult/Peds IV (11:07)
[2022-02-16] MEDS: 0.9% NaCl IVPB Med Flush (250 mL) 15 ML IV (11:14)
[2022-02-16 11:55] VITALS: BP 150/65; PULSE 65; RESP 16; TEMP 36.7; O2SAT 95
[2022-02-16 12:10] VITALS: BP 150/65; PULSE 65; RESP 16; TEMP 36.7; O2SAT 95
== END | disposition home or self-care (01) ==
LOC: MEDOUTP 10:51
PROVIDERS: PCP Nurse Practitioner Family; Referring Provider Internal Medicine Rheumatology; Visit Provider Internal Medicine Rheumatology
DX: L40.59 Other psoriatic arthropathy (principal)
CPT/HCPCS: 96365; J7050; A4216; J1602

== ENCOUNTER → 2022-05-09 | Outpatient (CLI) | payer MEDICARE, OTHER, SELFPAY ==
[2022-05-09 17:32] LABS: Absolute Lymphocyte Count 3.07 X10^3/uL (0.83-4.51); Absolute Neutrophil Count 4.4 X10^3/uL (2.0-7.7); Basophil# 0.06 X10^3/uL; Basophil% 0.7 % (0-1); Eosinophil# 0.27 X10^3/uL; Eosinophils% 3.1 % (0-5); Hematocrit 36.4 % (37-47); Hemoglobin 12.3 g/dL (12.0-15.0); Lymphocyte # 3.07 X10^3/ul (0.83-4.51); Lymphocyte % 35.4 % (19-41); Mean Corp Hgb Conc 33.8 g/dL (32-36); Mean Corpuscular Hgb 31.4 pg (27.0-32.0); Mean Corpuscular Volume 92.9 fL (81-99); Mean Platelet Vol. 11.2 fl (6.2-12.0); Monocyte# 0.81 X10^3/uL; Monocyte% 9.3 % (0-10); NRBC Flagged by Analyzer 0 % (0-5); Neutrophil # 4.42 X10^3/uL (2.7-7.7); Platelet Count 290 K/mm3 (150-450); RBC Distribution Width CV 12.6 % (11.6-14.6); RBC Distribution Width SD 42.5 fl (35.1-43.9); Red Blood Count 3.92 M/mm3 (4.2-5.4); White Blood Count 8.7 K/mm3 (4.4-11.0)
[2022-05-09 17:46] LABS: ALB/GLOB Ratio 0.7 RATIO (0.9-2.4); AST(SGOT) 16 U/L (15-37); Alanine Aminotransfer ALT/SGPT 20 U/L (13-56); Albumin, Serum 3.4 g/dL (3.2-5.0); Alkaline Phosphatase 87 U/L (45-117); Anion Gap 9 (5-15); BUN 20 mg/dL (7-18); BUN/Creat Ratio 15.6 RATIO (10-20); Calcium,Total 9.2 mg/dL (8.5-10.1); Chloride 102 mmol/L (98-107); Creatinine, Serum 1.28 mg/dL (0.55-1.02); EST Glomerular Filtration Rate 44 mL/min (>60); Est Glom Filt Rate - Afr Amer 53 mL/min (>60); Globulin 4.6 g/dL (2.2-4.2); Glucose 163 mg/dL (74-106); Potassium 3.5 mmol/L (3.5-5.1); Sodium Level 140 mmol/L (136-145)
[2022-05-12 15:07] LABS: QNTFERON TB Mitogen Value > 10.00 IU/mL (.); QNTFERON TB Nil Value 0 IU/mL (.); QNTFERON TB1+ Ag Value 0.01 IU/mL (.); QNTFERON TB2+ Ag Value 0.01 IU/mL (.)
[2022-05-12 15:19] LABS: QNTIFERON TB Positive Criteria Negative (Negative)
== END | disposition home or self-care (01) ==
LOC: MTLAB 14:37
PROVIDERS: PCP Nurse Practitioner Family; Referring Provider Internal Medicine Rheumatology; Visit Provider Internal Medicine Rheumatology
DX: L40.59 Other psoriatic arthropathy (principal); I50.9 Heart failure, unspecified; I11.0 Hypertensive heart disease with heart failure; E11.9 Type 2 diabetes mellitus without complications; M79.7 Fibromyalgia; M18.0 Bilateral primary osteoarthritis of first carpometacarpal joints; L40.8 Other psoriasis; K76.0 Fatty (change of) liver, not elsewhere classified; E78.5 Hyperlipidemia, unspecified; K57.90 Diverticulosis of intestine, part unspecified, without perforation or abscess without bleeding; I87.2 Venous insufficiency (chronic) (peripheral); I44.7 Left bundle-branch block, unspecified; G47.33 Obstructive sleep apnea (adult) (pediatric); Z95.0 Presence of cardiac pacemaker; Z79.899 Other long term (current) drug therapy
CPT/HCPCS: 36415; 80053; 85025; 86480

== ENCOUNTER → 2022-08-06 | Outpatient (CLI) | payer MEDICARE, OTHER, SELFPAY ==
--- NOTE | 2022-08-06 12:55 | ECHOD_ITS ---
Reason For Study: CARDIOMYOPATHY Procedure This was a 2D Doppler, Color Flow transthoracic echocardiogram. Exam performed in department. Left Ventricle Normal LV size. Mild concentric left ventricular hypertrophy. The estimated ejection fraction is 30 %. Moderately severe segmental systolic dysfunction (see wall motion). Septal motion consistent with IVCD. [place] : Akinetic. The rest of the wall segments are hypokinetic. Right Ventricle Normal RV size. ICD or pacer leads identified within the right ventricle. Normal systolic function. Atria Normal left atrium. Normal right atrium. Mitral Valve Normal mitral valve. Mild (1+) eccentric mitral valve insufficiency. Tricuspid Valve Normal tricuspid valve. Mild tricuspid valve insufficiency. Pulmonary artery systolic pressure is 33 mmHg. Aortic Valve Trisinus/trileaflet aortic valve. Great Vessels Normal aortic root. The pulmonary artery is normal size. Normal inferior vena cava. Pericardium/Pleural No pericardial effusion. MMode/2D Measurements & Calculations LVIDd: 5.4 cm IVSd: 1.2 cm Ao root diam: 3.4 cm LVIDs: 3.4 cm LVPWd: 1.4 cm RVDd: 3.9 cm FS: 36.2 % LAV(MOD-bp): 55.6 ml LVAd ap4: 40.8 cm2 LVAd ap2: 38.2 cm2 LAV(MOD-bp) Indexed: 26.2 ml/m2 LVLd ap4: 9.1 cm LVLd ap2: 8.7 cm LAV(MOD-sp2): 47.9 ml EDV(MOD-sp4): 151.2 ml EDV(MOD-sp2): 140.4 ml LAV(MOD-sp4): 64.4 ml EDV(sp4-el): 154.7 ml EDV(sp2-el): 142.1 ml LVAs ap4: 29.2 cm2 LVAs ap2: 27.8 cm2 LVLs ap4: 8.3 cm LVLs ap2: 8.1 cm ESV(MOD-sp4): 80.8 ml ESV(MOD-sp2): 78.1 ml ESV(sp4-el): 87.0 ml ESV(sp2-el): 80.6 ml EF(MOD-sp4): 46.6 % EF(MOD-sp2): 44.4 % EF(sp4-el): 43.7 % SV(MOD-sp4): 70.5 ml SV(MOD-sp2): 62.3 ml SV(sp4-el): 67.6 ml LA dimension(2D): 4.3 cm LA A4 area: 19.8 cm2 Time Measurements MV dec time: 0.24 sec Doppler Measurements & Calculations MV E max [place]: 79.6 cm/sec Lat Peak E' [place]: 4.9 cm/sec Med Peak E' [place]: 4.7 cm/sec MV A max [place]: 99.7 cm/sec E/E' lat: 16.3 E/E' med: 16.8 MV E/A: 0.80 MV dec slope: 332.2 cm/sec2 Ao V2 max: 146.0 cm/sec LV V1 max: 116.6 cm/sec Ao max P.6 mmHg LV V1 max P.4 mmHg PA V2 max: 125.1 cm/sec TR max [place]: 267.6 cm/sec TR max P.7 mmHg ECHO/Echo Complete Interpretation Summary Normal LV size. The estimated ejection fraction is 30 %. Moderately severe segmental systolic dysfunction (see wall motion). Mild concentric left ventricular hypertrophy. Pulmonary artery systolic pressure is 33 mmHg. To the previous the left ventricular function is mildly worsened. Ordering Physician: Clara Garza Referring Physician: Carli Almodovar Performed By: Supriya Veliz, ZARA, RVT
--- NOTE | 2022-08-06 14:12 | RAD_ITS ---
EXAM: XR CHEST, 2 VIEWS CLINICAL INDICATION: shortness of breath with exertion TECHNIQUE: Frontal and lateral views of the chest. This report was created using E-Sign report generation technology. COMPARISON: 03/14/2021 FINDINGS: LUNGS AND PLEURAL SPACES: Unremarkable. No consolidation or edema. No pneumothorax. No effusion. HEART: Unremarkable. Cardiac silhouette not enlarged. MEDIASTINUM: Central airways and mediastinal contour are unremarkable. BONES/JOINTS: Unremarkable. SOFT TISSUES: Unremarkable. TUBES, LINES AND DEVICES: Left chest pacer. RAD/Chest PA and Lateral IMPRESSION: No acute findings in the chest. Electronically Signed: Pradip Gallegos MD at 1:23 EST ,
[2022-08-06 15:58] LABS: Hematocrit 37.3 % (37-47); Hemoglobin 12.5 g/dL (12.0-15.0); Mean Corp Hgb Conc 33.5 g/dL (32-36); Mean Corpuscular Hgb 30.5 pg (27.0-32.0); Mean Platelet Vol. 10.1 fl (6.2-12.0); Platelet Count 262 K/mm3 (150-450); RBC Distribution Width CV 13.4 % (11.6-14.6); RBC Distribution Width SD 44.4 fl (35.1-43.9); White Blood Count 10.3 K/mm3 (4.4-11.0)
[2022-08-06 16:28] LABS: BNP,B-Type NATRIURETIC PEPTIDE 105.1 pg/mL (0-100)
[2022-08-06 16:32] LABS: Anion Gap 4 (5-15); BUN 23 mg/dL (7-18); BUN/Creat Ratio 19.7 RATIO (10-20); Chloride 102 mmol/L (98-107); Creatinine, Serum 1.17 mg/dL (0.55-1.02); EST Glomerular Filtration Rate 49 mL/min (>60); Est Glom Filt Rate - Afr Amer 59 mL/min (>60); Glucose 129 mg/dL (74-106); Potassium 3.4 mmol/L (3.5-5.1); Sodium Level 139 mmol/L (136-145)
== END | disposition home or self-care (01) ==
PROVIDERS: PCP Internal Medicine; Referring Provider Nurse Practitioner Gerontology; Visit Provider Nurse Practitioner Gerontology
DX: R06.09 Other forms of dyspnea (principal); J44.9 Chronic obstructive pulmonary disease, unspecified; I50.42 Chronic combined systolic (congestive) and diastolic (congestive) heart failure; I42.8 Other cardiomyopathies
CPT/HCPCS: 36415; 71046; 80048; 83880; 85027; 93306

== ENCOUNTER → 2022-08-07 | Outpatient (CLI) | payer MEDICARE, OTHER, SELFPAY ==
[2022-08-07 15:07] LABS: Absolute Lymphocyte Count 1.73 X10^3/uL (0.83-4.51); Basophil# 0.06 X10^3/uL; Basophil% 0.7 % (0-1); Eosinophil# 0.12 X10^3/uL; Eosinophils% 1.4 % (0-5); Hemoglobin 12.4 g/dL (12.0-15.0); Lymphocyte # 1.73 X10^3/ul (0.83-4.51); Lymphocyte % 20.7 % (19-41); Mean Corp Hgb Conc 32.6 g/dL (32-36); Mean Corpuscular Hgb 29.9 pg (27.0-32.0); Mean Corpuscular Volume 91.6 fL (81-99); Mean Platelet Vol. 10.5 fl (6.2-12.0); Monocyte# 0.38 X10^3/uL; Monocyte% 4.5 % (0-10); NRBC Flagged by Analyzer 0 % (0-5); Neutrophil % 71.7 % (47-70); Platelet Count 278 K/mm3 (150-450); RBC Distribution Width CV 13.4 % (11.6-14.6); RBC Distribution Width SD 45.3 fl (35.1-43.9); Red Blood Count 4.15 M/mm3 (4.2-5.4); White Blood Count 8.4 K/mm3 (4.4-11.0)
[2022-08-07 15:33] LABS: AST(SGOT) 14 U/L (15-37); Alanine Aminotransfer ALT/SGPT 28 U/L (13-56); Albumin, Serum 3.5 g/dL (3.2-5.0); Alkaline Phosphatase 61 U/L (45-117); Anion Gap 6 (5-15); BUN 22 mg/dL (7-18); BUN/Creat Ratio 18.6 RATIO (10-20); Calcium,Total 8.7 mg/dL (8.5-10.1); Chloride 103 mmol/L (98-107); Creatinine, Serum 1.18 mg/dL (0.55-1.02); EST Glomerular Filtration Rate 48 mL/min (>60); Est Glom Filt Rate - Afr Amer 59 mL/min (>60); Globulin 3.5 g/dL (2.2-4.2); Glucose 211 mg/dL (74-106); Potassium 3.8 mmol/L (3.5-5.1); Sodium Level 140 mmol/L (136-145)
== END | disposition home or self-care (01) ==
LOC: MTLAB 12:39
PROVIDERS: PCP Internal Medicine; Referring Provider Internal Medicine Rheumatology; Visit Provider Internal Medicine Rheumatology
DX: Z79.899 Other long term (current) drug therapy (principal); L40.59 Other psoriatic arthropathy
CPT/HCPCS: 36415; 80053; 85025

== ENCOUNTER → 2022-08-21 | Outpatient (CLI) | payer MEDICARE, OTHER, SELFPAY ==
[2022-08-21 18:00] LABS: Anion Gap 4 (5-15); BUN 23 mg/dL (7-18); BUN/Creat Ratio 17.3 RATIO (10-20); Calcium,Total 9.4 mg/dL (8.5-10.1); Chloride 100 mmol/L (98-107); Creatinine, Serum 1.33 mg/dL (0.55-1.02); EST Glomerular Filtration Rate 42 mL/min (>60); Est Glom Filt Rate - Afr Amer 51 mL/min (>60); Glucose 140 mg/dL (74-106); Sodium Level 139 mmol/L (136-145)
== END | disposition home or self-care (01) ==
LOC: MTLAB 14:08
PROVIDERS: PCP Internal Medicine; Referring Provider Nurse Practitioner Gerontology; Visit Provider Nurse Practitioner Gerontology
DX: R06.09 Other forms of dyspnea (principal)
CPT/HCPCS: 36415; 80048

== ENCOUNTER → 2022-11-05 | Outpatient (CLI) | payer MEDICARE, OTHER, SELFPAY ==
[2022-11-05 15:21] LABS: Absolute Lymphocyte Count 1.68 X10^3/uL (0.83-4.51); Absolute Neutrophil Count 7.7 X10^3/uL (2.0-7.7); Basophil# 0.07 X10^3/uL; Basophil% 0.7 % (0-1); Eosinophil# 0.19 X10^3/uL; Eosinophils% 1.9 % (0-5); Hematocrit 37.3 % (37-47); Hemoglobin 12.4 g/dL (12.0-15.0); Lymphocyte # 1.68 X10^3/ul (0.83-4.51); Lymphocyte % 16.4 % (19-41); Mean Corp Hgb Conc 33.2 g/dL (32-36); Mean Corpuscular Hgb 31.2 pg (27.0-32.0); Mean Platelet Vol. 10.8 fl (6.2-12.0); Monocyte# 0.56 X10^3/uL; Monocyte% 5.5 % (0-10); NRBC Flagged by Analyzer 0 % (0-5); Neutrophil # 7.73 X10^3/uL (2.7-7.7); Neutrophil % 75.1 % (47-70); Platelet Count 285 K/mm3 (150-450); RBC Distribution Width SD 44.6 fl (35.1-43.9); Red Blood Count 3.97 M/mm3 (4.2-5.4); White Blood Count 10.3 K/mm3 (4.4-11.0)
[2022-11-05 15:56] LABS: ALB/GLOB Ratio 0.9 RATIO (0.9-2.4); AST(SGOT) 20 U/L (15-37); Alanine Aminotransfer ALT/SGPT 26 U/L (13-56); Albumin, Serum 3.5 g/dL (3.2-5.0); Alkaline Phosphatase 58 U/L (45-117); Anion Gap 5 (5-15); BUN 19 mg/dL (7-18); BUN/Creat Ratio 14.6 RATIO (10-20); Calcium,Total 9.3 mg/dL (8.5-10.1); Chloride 103 mmol/L (98-107); EST Glomerular Filtration Rate 43 mL/min (>60); Est Glom Filt Rate - Afr Amer 52 mL/min (>60); Globulin 3.8 g/dL (2.2-4.2); Glucose 210 mg/dL (74-106); Potassium 3.8 mmol/L (3.5-5.1); Protein, Total 7.3 g/dL (6.4-8.2); Sodium Level 138 mmol/L (136-145)
== END | disposition home or self-care (01) ==
PROVIDERS: PCP Internal Medicine; Referring Provider Internal Medicine Rheumatology; Visit Provider Internal Medicine Rheumatology
DX: L40.59 Other psoriatic arthropathy (principal); I11.0 Hypertensive heart disease with heart failure; I50.9 Heart failure, unspecified; E11.9 Type 2 diabetes mellitus without complications; M79.7 Fibromyalgia; M18.0 Bilateral primary osteoarthritis of first carpometacarpal joints; L40.8 Other psoriasis; K76.0 Fatty (change of) liver, not elsewhere classified; E78.5 Hyperlipidemia, unspecified; K57.90 Diverticulosis of intestine, part unspecified, without perforation or abscess without bleeding; I87.2 Venous insufficiency (chronic) (peripheral); I44.7 Left bundle-branch block, unspecified; G47.33 Obstructive sleep apnea (adult) (pediatric); Z95.0 Presence of cardiac pacemaker; Z79.899 Other long term (current) drug therapy
CPT/HCPCS: 36415; 80053; 85025

== ENCOUNTER → 2022-11-27 | Outpatient (CLI) | payer MEDICARE, OTHER, SELFPAY ==
--- NOTE | 2022-11-27 13:39 | MRI_ITS ---
INDICATION: Follow-up right renal lesion. EXAMINATION: MR Abdomen W/O Contrast TECHNIQUE: Multiplanar and multisequence MR images of the abdomen were obtained. IV Contrast Dosage and Agent: COMPARISON: MRI abdomen November 17, 2021. CT abdomen December 28, 2016. FINDINGS: Patient motion artifact. LIVER: Homogeneous. No focal mass. GALLBLADDER AND BILIARY TREE: No filling defects in the gallbladder. No gallbladder distension or wall edema. No intra- or extrahepatic biliary ductal dilation. PANCREAS: No focal cystic or solid mass. SPLEEN: Normal size without focal cystic or solid mass. ADRENAL GLANDS: No nodules. KIDNEYS AND URETERS: No hydronephrosis. Unchanged transverse orientation of the right kidney. Stable 2.0 x 2.1 cm hemorrhagic versus proteinaceous cyst of the posterior right kidney lower pole with fluid-blood level. No enhancement demonstrated on the prior exam. PERITONEUM: No ascites or free air. No other fluid collection. LYMPH NODES: No enlarged mesenteric or retroperitoneal lymph nodes. VESSELS: Aorta is non-dilated. MRI/Abdomen without Contrast IMPRESSION: Unchanged right renal proteinaceous or hemorrhagic cyst. Electronically Signed: Kody Gracia MD at 15:00 EDT ,
[2022-11-27 13:53] VITALS: BP 149/70; PULSE 66; RESP 16; O2SAT 94
[2022-11-27 14:04] VITALS: BP 139/81; PULSE 86; RESP 16; O2SAT 96
[2022-11-27 14:14] VITALS: BP 148/77; PULSE 84; RESP 16; O2SAT 96
[2022-11-27 14:20] VITALS: BP 145/83; PULSE 84; RESP 16; O2SAT 95
[2022-11-27 14:34] VITALS: BP 142/71; PULSE 63; RESP 16; O2SAT 93
== END | disposition home or self-care (01) ==
LOC: MRI 13:36
PROVIDERS: PCP Internal Medicine; Referring Provider Internal Medicine; Visit Provider Internal Medicine
DX: N28.9 Disorder of kidney and ureter, unspecified (principal)
CPT/HCPCS: 74181

== ENCOUNTER → 2022-12-26 | Outpatient (CLI) | payer MEDICARE, OTHER, SELFPAY ==
--- NOTE | 2022-12-26 09:42 | ECHOLC_ITS ---
Reason For Study: NON-ISCHEMIC CARDIOMYOPATHY Procedure This was a limited 2D transthoracic echocardiogram. The study was technically difficult. Due to body habitus. Contrast injection was performed. Exam performed in department. Left Ventricle Normal LV size. The estimated ejection fraction is 30 %. Stage 1 diastolic dysfunction. [place] : Akinetic. The rest of the wall segments are hypokinetic. Apical wall motion abnormality may reflect pacemaker activation. Right Ventricle Normal RV size. ICD or pacer leads identified within the right ventricle. Normal systolic function. Atria The left atrium is mildly enlarged. Normal right atrium. Mitral Valve Normal mitral valve. Tricuspid Valve Normal tricuspid valve. Mild (1+) tricuspid valve insufficiency. Pulmonary artery systolic pressure is 28 mmHg. Aortic Valve The aortic valve is not well visualized. Pulmonic Valve The pulmonic valve is not well visualized. Great Vessels Normal aortic root. The pulmonary artery is normal size. Normal inferior vena cava. Pericardium/Pleural No pericardial effusion. Medication 22 gauge I.V. with prn adaptor inserted into right arm. Diluted definity 2.5ml given slow IV push to enhance endocardial definition. MMode/2D Measurements & Calculations LVIDd: 5.5 cm IVSd: 0.94 cm Ao root diam: 2.3 cm LVIDs: 4.4 cm LVPWd: 1.3 cm FS: 20.6 % LAV(MOD-bp): 74.5 ml LVAd ap4: 44.6 cm2 LVAd ap2: 33.2 cm2 LAV(MOD-bp) Indexed: 34.8 ml/m2 LVLd ap4: 9.4 cm LVLd ap2: 8.1 cm LAV(MOD-sp2): 74.7 ml EDV(MOD-sp4): 171.7 ml EDV(MOD-sp2): 111.1 ml LAV(MOD-sp4): 74.8 ml EDV(sp4-el): 179.5 ml EDV(sp2-el): 115.1 ml LVAs ap4: 34.5 cm2 LVAs ap2: 25.6 cm2 LVLs ap4: 8.9 cm LVLs ap2: 7.4 cm ESV(MOD-sp4): 110.1 ml ESV(MOD-sp2): 71.9 ml ESV(sp4-el): 113.8 ml ESV(sp2-el): 75.7 ml EF(MOD-sp4): 35.9 % EF(MOD-sp2): 35.2 % EF(sp4-el): 36.6 % SV(MOD-sp4): 61.6 ml SV(MOD-sp2): 39.1 ml SV(sp4-el): 65.7 ml LA A4 area: 21.5 cm2 LA dimension(2D): 4.0 cm RA A4 area: 12.3 cm2 Time Measurements MV dec time: 0.26 sec Doppler Measurements & Calculations MV E max rishabh: 96.4 cm/sec PA V2 max: 152.2 cm/sec MV A max rishabh: 118.0 cm/sec MV dec slope: 372.5 cm/sec2 MV E/A: 0.82 TR max rishabh: 249.3 cm/sec TR max P.9 mmHg ECHO/Echo Limited w/Contrast Interpretation Summary Normal LV size. The estimated ejection fraction is 30 %. Apical wall motion abnormality may reflect pacemaker activation. Stage 1 diastolic dysfunction. Contrast injection was performed. Compared to previous study, the left ventricu lar systolic function is the same.. Ordering Physician: Clara Garza Referring Physician: Carli Almodovar Performed By: Supriya Veliz, ZARA, RVT
== END | disposition home or self-care (01) ==
LOC: CVS 09:41
PROVIDERS: PCP Internal Medicine; Referring Provider Nurse Practitioner Gerontology; Visit Provider Nurse Practitioner Gerontology
DX: I42.8 Other cardiomyopathies (principal)
CPT/HCPCS: 93308; Q9957; A4216; C8924

== ENCOUNTER → 2023-01-23 | Outpatient (CLI) | payer MEDICARE, OTHER, SELFPAY ==
[2023-01-23 15:33] LABS: Absolute Lymphocyte Count 1.57 X10^3/uL (0.83-4.51); Absolute Neutrophil Count 6.1 X10^3/uL (2.0-7.7); Basophil# 0.06 X10^3/uL; Basophil% 0.7 % (0-1); Eosinophil# 0.16 X10^3/uL; Eosinophils% 1.9 % (0-5); Hematocrit 38.9 % (37-47); Hemoglobin 12.7 g/dL (12.0-15.0); Lymphocyte # 1.57 X10^3/ul (0.83-4.51); Lymphocyte % 18.9 % (19-41); Mean Corp Hgb Conc 32.6 g/dL (32-36); Mean Corpuscular Hgb 30.4 pg (27.0-32.0); Mean Corpuscular Volume 93.1 fL (81-99); Mean Platelet Vol. 10.9 fl (6.2-12.0); Monocyte# 0.42 X10^3/uL; Monocyte% 5.1 % (0-10); NRBC Flagged by Analyzer 0 % (0-5); Neutrophil # 6.05 X10^3/uL (2.7-7.7); Platelet Count 269 K/mm3 (150-450); RBC Distribution Width SD 44.6 fl (35.1-43.9); Red Blood Count 4.18 M/mm3 (4.2-5.4); White Blood Count 8.3 K/mm3 (4.4-11.0)
[2023-01-23 16:23] LABS: ALB/GLOB Ratio 0.9 RATIO (0.9-2.4); AST(SGOT) 16 U/L (15-37); Alanine Aminotransfer ALT/SGPT 21 U/L (13-56); Albumin, Serum 3.5 g/dL (3.2-5.0); Alkaline Phosphatase 53 U/L (45-117); Anion Gap 8 (5-15); BUN 23 mg/dL (7-18); BUN/Creat Ratio 16.1 RATIO (10-20); Calcium,Total 9.1 mg/dL (8.5-10.1); Chloride 104 mmol/L (98-107); Creatinine, Serum 1.43 mg/dL (0.55-1.02); EST Glomerular Filtration Rate 39 mL/min (>60); Est Glom Filt Rate - Afr Amer 47 mL/min (>60); Globulin 3.9 g/dL (2.2-4.2); Glucose 223 mg/dL (74-106); Potassium 3.9 mmol/L (3.5-5.1); Protein, Total 7.4 g/dL (6.4-8.2); Sodium Level 139 mmol/L (136-145)
== END | disposition home or self-care (01) ==
LOC: MTLAB 13:56
PROVIDERS: PCP Internal Medicine; Referring Provider Internal Medicine Rheumatology; Visit Provider Internal Medicine Rheumatology
DX: L40.59 Other psoriatic arthropathy (principal); Z79.899 Other long term (current) drug therapy; L40.8 Other psoriasis
CPT/HCPCS: 36415; 80053; 85025

== ENCOUNTER 2023-03-18 13:18 | Outpatient (RCR) | payer MEDICARE, OTHER, SELFPAY | END 2023-03-25 23:59 | LOC: NS 13:18 | PROVIDERS: PCP Internal Medicine; Referring Provider Internal Medicine; Visit Provider Internal Medicine | DX: Z71.3 Dietary counseling and surveillance (principal); E11.40 Type 2 diabetes mellitus with diabetic neuropathy, unspecified | CPT/HCPCS: 97802 ==

== ENCOUNTER → 2023-03-20 | Outpatient (CLI) | payer MEDICARE, OTHER, SELFPAY ==
[2023-03-20 12:50] LABS: Absolute Lymphocyte Count 2.74 X10^3/uL (0.83-4.51); Absolute Neutrophil Count 5.7 X10^3/uL (2.0-7.7); Basophil# 0.05 X10^3/uL; Basophil% 0.5 % (0-1); Eosinophil# 0.09 X10^3/uL; Erythrocyte Sedimentation Rate 18 mm/hr (0-30); Hematocrit 42.2 % (37-47); Hemoglobin 13.6 g/dL (12.0-15.0); Lymphocyte # 2.74 X10^3/ul (0.83-4.51); Lymphocyte % 29.3 % (19-41); Mean Corp Hgb Conc 32.2 g/dL (32-36); Mean Corpuscular Hgb 30.5 pg (27.0-32.0); Mean Corpuscular Volume 94.6 fL (81-99); Mean Platelet Vol. 11.3 fl (6.2-12.0); Monocyte# 0.73 X10^3/uL; Monocyte% 7.8 % (0-10); NRBC Flagged by Analyzer 0 % (0-5); Neutrophil % 60.9 % (47-70); Platelet Count 287 K/mm3 (150-450); RBC Distribution Width SD 44.9 fl (35.1-43.9); Red Blood Count 4.46 M/mm3 (4.2-5.4); White Blood Count 9.4 K/mm3 (4.4-11.0)
[2023-03-20 13:23] LABS: AST(SGOT) 15 U/L (15-37); Alanine Aminotransfer ALT/SGPT 25 U/L (13-56); Albumin, Serum 3.7 g/dL (3.2-5.0); Alkaline Phosphatase 51 U/L (45-117); Anion Gap 7 (5-15); BUN 33 mg/dL (7-18); BUN/Creat Ratio 21.4 RATIO (10-20); Bilirubin, Direct 0.11 mg/dL (0.00-0.30); Calcium,Total 9.3 mg/dL (8.5-10.1); Chloride 101 mmol/L (98-107); Creatinine, Serum 1.54 mg/dL (0.55-1.02); EST Glomerular Filtration Rate 36 mL/min (>60); Est Glom Filt Rate - Afr Amer 43 mL/min (>60); Glucose 154 mg/dL (74-106); Phosphorus 4.1 mg/dL (2.5-4.9); Protein, Total 7.7 g/dL (6.4-8.2); Sodium Level 138 mmol/L (136-145); T4 Free Direct 0.83 ng/dL (0.76-1.46); Thyroid Stim Hormone (TSH) 1.94 uIU/mL (0.358-3.74)
[2023-03-21 13:08] LABS: PROEL- A/G Ratio 1.3 (0.7-1.7); PROEL- Albumin 3.9 g/dL (2.9-4.4); PROEL- Alpha-1 Globulin 0.2 g/dL (0.0-0.4); PROEL- Alpha-2 Globulin 0.8 g/dL (0.4-1.0); PROEL- Beta Globulin 1.2 g/dL (0.7-1.3); PROEL- Gamma Globulin 0.9 g/dL (0.4-1.8); PROEL- Globulin, Total 3.1 g/dL (2.2-3.9)
== END | disposition home or self-care (01) ==
LOC: MTLAB 10:50
PROVIDERS: PCP Internal Medicine; Referring Provider Physician Assistant Medical; Visit Provider Physician Assistant Medical
DX: L29.8 Other pruritus (principal); Z79.899 Other long term (current) drug therapy
CPT/HCPCS: 36415; 80048; 80076; 84100; 84165; 84439; 84443; 85025; 85652

== ENCOUNTER → 2023-04-17 | Outpatient (CLI) | payer MEDICARE, OTHER, SELFPAY ==
--- NOTE | 2023-04-17 11:19 | MRI_ITS ---
STUDY: MRI BRAIN WITHOUT CONTRAST REASON FOR EXAM: Female, 68 years old. CHRONIC HEAD PAIN TECHNIQUE: Standardized multiplanar fat and water weighted pulse sequences were obtained. MRI examination brain fusion protocol including both planar multiecho noncontrast imaging. Contrast: No contrast administered. COMPARISON: : No relevant prior comparison study available HEMISPHERES, CEREBELLUM AND BRAINSTEM: 1. The cerebral parenchyma, ventricular system, subarachnoid spaces have normal configuration and density. There is a normal gyral pattern. There is normal [place]/white differentiation. No midline shift.. 2. No significant involutional changes, however moderate chronic microvascular deep white matter changes bilaterally. No evidence fluid restriction or acute ischemic change. No areas of hemosiderin deposition. 3. No intraparenchymal mass, hemorrhage, or acute territorial infarct. 4. The cerebellum, brainstem, basilar and suprasellar cisterns have normal appearance. No Chiari malformation. PITUITARY: Infundibulum and pituitary have normal configuration. Midline structures appear normal. CSF SPACES: Appropriate for age. No hydrocephalus. Basal cisterns are patent. VESSELS: 1. There are normal flow voids noted in the great vessels at the skull base ORBITS AND PARANASAL SINUSES: 1. Both globes, extraocular muscles, optic nerves and retrobulbar fat appear unremarkable. 2. Paranasal sinuses are clear. BONY ELEMENTS: Bony elements of the cranial vault, facial skeleton and skull base have normal appearance. SCALP AND SOFT TISSUES: Normal appearance of the soft tissues of the scalp and the visualized face OTHER: None MRI/Brain without Contrast IMPRESSION: 1. No significant involutional changes, however moderate chronic microvascular deep white matter disease is present. 2. No mass, hemorrhage, or acute territorial infarct. 3. No radiographically significant sinus disease. Electronically Signed: Zander Vasquez MD at 20:41 EDT ,
[2023-04-17 11:33] VITALS: BP 130/60; PULSE 61; RESP 16; O2SAT 96
[2023-04-17 11:48] VITALS: BP 133/70; PULSE 84; RESP 18; O2SAT 95
[2023-04-17 12:03] VITALS: BP 134/70; PULSE 84; RESP 18; O2SAT 93
[2023-04-17 12:18] VITALS: BP 136/66; PULSE 60; RESP 18; O2SAT 97
== END | disposition home or self-care (01) ==
LOC: MRI 10:49
PROVIDERS: PCP Internal Medicine
DX: R51.9 Headache, unspecified (principal); G89.29 Other chronic pain
CPT/HCPCS: 70551

== ENCOUNTER → 2023-04-23 | Outpatient (CLI) | payer MEDICARE, OTHER, SELFPAY ==
[2023-04-23 15:43] LABS: Anion Gap 8 (5-15); BUN 32 mg/dL (7-18); BUN/Creat Ratio 21.3 RATIO (10-20); Chloride 106 mmol/L (98-107); EST Glomerular Filtration Rate 37 mL/min (>60); Est Glom Filt Rate - Afr Amer 44 mL/min (>60); Glucose 211 mg/dL (74-106); Potassium 4.1 mmol/L (3.5-5.1); Sodium Level 141 mmol/L (136-145)
== END | disposition home or self-care (01) ==
LOC: MTLAB 13:10
PROVIDERS: PCP Internal Medicine; Referring Provider Nurse Practitioner Gerontology; Visit Provider Nurse Practitioner Gerontology
DX: I50.42 Chronic combined systolic (congestive) and diastolic (congestive) heart failure (principal)
CPT/HCPCS: 36415; 80048

== ENCOUNTER → 2023-04-26 | Outpatient (CLI) | payer MEDICARE, OTHER, SELFPAY ==
[2023-04-26 15:06] LABS: Absolute Lymphocyte Count 2.51 X10^3/uL (0.83-4.51); Absolute Neutrophil Count 4.9 X10^3/uL (2.0-7.7); Basophil# 0.06 X10^3/uL; Basophil% 0.7 % (0-1); Eosinophil# 0.13 X10^3/uL; Eosinophils% 1.6 % (0-5); Hematocrit 38.8 % (37-47); Lymphocyte # 2.51 X10^3/ul (0.83-4.51); Lymphocyte % 30.1 % (19-41); Mean Corp Hgb Conc 33.5 g/dL (32-36); Mean Corpuscular Hgb 31.3 pg (27.0-32.0); Mean Corpuscular Volume 93.3 fL (81-99); Mean Platelet Vol. 10.7 fl (6.2-12.0); Monocyte# 0.66 X10^3/uL; Monocyte% 7.9 % (0-10); NRBC Flagged by Analyzer 0 % (0-5); Neutrophil # 4.94 X10^3/uL (2.7-7.7); Neutrophil % 59.3 % (47-70); Platelet Count 288 K/mm3 (150-450); RBC Distribution Width SD 44.1 fl (35.1-43.9); Red Blood Count 4.16 M/mm3 (4.2-5.4); White Blood Count 8.3 K/mm3 (4.4-11.0)
[2023-04-26 15:35] LABS: ALB/GLOB Ratio 0.9 RATIO (0.9-2.4); AST(SGOT) 18 U/L (15-37); Alanine Aminotransfer ALT/SGPT 29 U/L (13-56); Albumin, Serum 3.6 g/dL (3.2-5.0); Alkaline Phosphatase 56 U/L (45-117); Anion Gap 7 (5-15); BUN 32 mg/dL (7-18); BUN/Creat Ratio 20.3 RATIO (10-20); Calcium,Total 9.1 mg/dL (8.5-10.1); Chloride 105 mmol/L (98-107); Creatinine, Serum 1.58 mg/dL (0.55-1.02); EST Glomerular Filtration Rate 34 mL/min (>60); Est Glom Filt Rate - Afr Amer 42 mL/min (>60); Globulin 3.8 g/dL (2.2-4.2); Glucose 167 mg/dL (74-106); Protein, Total 7.4 g/dL (6.4-8.2); Sodium Level 140 mmol/L (136-145)
== END | disposition home or self-care (01) ==
LOC: MTLAB 13:14
PROVIDERS: PCP Internal Medicine; Referring Provider Internal Medicine Rheumatology; Visit Provider Internal Medicine Rheumatology
DX: L40.59 Other psoriatic arthropathy (principal); M79.7 Fibromyalgia; M18.0 Bilateral primary osteoarthritis of first carpometacarpal joints; Z79.899 Other long term (current) drug therapy
CPT/HCPCS: 36415; 80053; 85025

== ENCOUNTER → 2023-05-21 | Outpatient (CLI) | payer MEDICARE, OTHER, SELFPAY ==
--- NOTE | 2023-05-21 09:46 | MRI_ITS ---
HISTORY: RADICULOPATHY,STENOSIS, DECREASED STRENGTH UPPER EXTREMITY. TECHNIQUE: Multiplanar and multisequence MR images of the cervical spine were obtained without contrast. 286 images. COMPARISON: 02/02/2021. FINDINGS: VERTEBRAE: Vertebral body heights maintained. Mild degenerative bone marrow changes of C3-4. Artifact from anterior spinal fusion hardware and discectomy of C4-5 and C5-6. Small T1 vertebral body hemangioma again seen. VERTEBRAL ALIGNMENT: No anterior or posterior subluxation. SPINAL CORD: Cervical cord signal within normal limits. Mild cord atrophy at the postoperative levels. SOFT TISSUES: No prevertebral fluid collection. INTERVERTEBRAL DISCS: C2-3: No significant posterior disc protrusion, central canal stenosis, or foraminal narrowing. C3-4: New moderate central disc protrusion resulting in mild central canal stenosis and no significant foraminal narrowing. C4-5: Interval discectomy with resolution of central canal stenosis. C5-6: Interval discectomy with residual degenerative change and decreased moderate central canal stenosis. C6-7: Increased mild disc bulge resulting in mild central canal stenosis and no significant foraminal narrowing. C7-T1: No significant posterior disc protrusion, central canal stenosis, or foraminal narrowing. MRI/Spine Cervical (Routine) IMPRESSION: ACDF C4-6 with decreased spinal canal stenosis at the postoperative levels. Interval progression of mild degenerative disc disease above and below the level of fusion resulting in mild spinal canal stenosis. Electronically Signed: Maribel Rodriguez MD at 15:54 EDT ,
[2023-05-21 10:00] VITALS: BP 140/58; RESP 18
[2023-05-21 10:15] VITALS: PULSE 84; RESP 18; O2SAT 94
[2023-05-21 10:44] VITALS: BP 127/62; PULSE 62; RESP 18; O2SAT 96
== END | disposition home or self-care (01) ==
LOC: MRI 09:33
PROVIDERS: PCP Internal Medicine
DX: M48.02 Spinal stenosis, cervical region (principal); M54.12 Radiculopathy, cervical region; R29.898 Other symptoms and signs involving the musculoskeletal system
CPT/HCPCS: 72141

== ENCOUNTER → 2023-07-16 | Outpatient (CLI) | payer MEDICARE, OTHER, SELFPAY ==
--- NOTE | 2023-07-16 12:54 | ECHOLCONC_ITS ---
Reason For Study: CMP Procedure This was a limited 2D transthoracic echocardiogram. Myocardial strain analysis was performed in this exam to aid in the assessment of cardiac function. The study was technically difficult. Contrast injection was performed. Exam performed in department. Left Ventricle Normal LV size. Moderate concentric left ventricular hypertrophy. The left ventricular ejection fraction is 35 %. There is moderate global hypokinesis of the left ventricle. Right Ventricle Normal RV size. ICD or pacer leads identified within the right ventricle. Normal systolic function. Atria Normal left atrium. Normal right atrium. Great Vessels Normal aortic root. Pericardium/Pleural No pericardial effusion. Medication 22 gauge I.V. with prn adaptor inserted into right arm. Diluted definity 1.5ml given slow IV push to enhance endocardial definition. MMode/2D Measurements & Calculations LVIDd: 4.7 cm IVSd: 1.6 cm LAV(MOD-bp): 29.3 ml LVIDs: 3.4 cm LVPWd: 1.2 cm FS: 28.2 % LAV(MOD-bp) Indexed: 15.4 ml/m2 LAV(MOD-sp2): 18.5 ml LAV(MOD-sp4): 34.3 ml LVAd ap4: 43.1 cm2 SV(MOD-sp4): 91.3 ml SV(sp4-el): 96.2 ml LVLd ap4: 8.9 cm EDV(MOD-sp4): 171.1 ml EDV(sp4-el): 177.3 ml LVAs ap4: 27.8 cm2 LVLs ap4: 8.1 cm ESV(MOD-sp4): 79.8 ml ESV(sp4-el): 81.1 ml EF(MOD-sp4): 53.4 % EF(sp4-el): 54.3 % LA A4 area: 14.2 cm2 RA A4 area: 9.5 cm2 ECHO/ONC Echo Limited w/Contrast Interpretation Summary The left ventricular ejection fraction is 35 %. Normal LV size. There is moderate global hypokinesis of the left ventricle. Moderate concentric left ventricular hypertrophy. Contrast injection was performed. The global longitudinal strain = -9.2% (abnor mal). Ordering Physician: Clara Garza Referring Physician: Clara Garza Performed By: Zabrina Barriga RCS
== END | disposition home or self-care (01) ==
LOC: CVS 12:52
PROVIDERS: PCP Internal Medicine; Referring Provider Nurse Practitioner Gerontology; Visit Provider Nurse Practitioner Gerontology
DX: I42.8 Other cardiomyopathies (principal)
CPT/HCPCS: 93308; 93356; Q9957; A4216; C8924

== ENCOUNTER → 2023-10-21 | Outpatient (CLI) | payer MEDICARE, OTHER, SELFPAY ==
[2023-10-21 15:33] LABS: Absolute Lymphocyte Count 2.84 X10^3/uL (0.83-4.51); Absolute Neutrophil Count 4.7 X10^3/uL (2.0-7.7); Basophil# 0.09 X10^3/uL; Basophil% 1.1 % (0-1); Eosinophil# 0.21 X10^3/uL; Eosinophils% 2.5 % (0-5); Hemoglobin 13.9 g/dL (12.0-15.0); Lymphocyte # 2.84 X10^3/ul (0.83-4.51); Mean Corp Hgb Conc 32.3 g/dL (32-36); Mean Corpuscular Volume 92.7 fL (81-99); Mean Platelet Vol. 10.8 fl (6.2-12.0); Monocyte# 0.51 X10^3/uL; Monocyte% 6.1 % (0-10); NRBC Flagged by Analyzer 0 % (0-5); Neutrophil # 4.66 X10^3/uL (2.7-7.7); Neutrophil % 55.7 % (47-70); Platelet Count 309 K/mm3 (150-450); RBC Distribution Width CV 13.8 % (11.6-14.6); RBC Distribution Width SD 46.8 fl (35.1-43.9); Red Blood Count 4.64 M/mm3 (4.2-5.4); White Blood Count 8.4 K/mm3 (4.4-11.0)
[2023-10-21 16:09] LABS: ALB/GLOB Ratio 0.9 RATIO (0.9-2.4); AST(SGOT) 16 U/L (15-37); Alanine Aminotransfer ALT/SGPT 23 U/L (13-56); Albumin, Serum 3.6 g/dL (3.2-5.0); Alkaline Phosphatase 55 U/L (45-117); Anion Gap 9 (5-15); BUN 27 mg/dL (7-18); BUN/Creat Ratio 14.8 RATIO (10-20); Calcium,Total 8.9 mg/dL (8.5-10.1); Chloride 105 mmol/L (98-107); Creatinine, Serum 1.83 mg/dL (0.55-1.02); EST Glomerular Filtration Rate 29 mL/min (>60); Est Glom Filt Rate - Afr Amer 35 mL/min (>60); Globulin 3.8 g/dL (2.2-4.2); Glucose 261 mg/dL (74-106); Potassium 4.1 mmol/L (3.5-5.1); Protein, Total 7.4 g/dL (6.4-8.2); Sodium Level 137 mmol/L (136-145)
== END | disposition home or self-care (01) ==
PROVIDERS: PCP Internal Medicine; Referring Provider Internal Medicine Rheumatology; Visit Provider Internal Medicine Rheumatology
DX: L40.59 Other psoriatic arthropathy (principal); M79.7 Fibromyalgia; M18.0 Bilateral primary osteoarthritis of first carpometacarpal joints; L40.8 Other psoriasis; Z79.899 Other long term (current) drug therapy
CPT/HCPCS: 36415; 80053; 85025

== ENCOUNTER → 2024-04-14 | Outpatient (CLI) | payer MEDICARE, OTHER, SELFPAY ==
[2024-04-14 17:33] LABS: Absolute Lymphocyte Count 3.16 X10^3/uL (0.83-4.51); Absolute Neutrophil Count 4.5 X10^3/uL (2.0-7.7); Basophil# 0.06 X10^3/uL; Basophil% 0.7 % (0-1); Eosinophil# 0.17 X10^3/uL; Hematocrit 43.2 % (37-47); Hemoglobin 14.1 g/dL (12.0-15.0); Lymphocyte # 3.16 X10^3/ul (0.83-4.51); Lymphocyte % 36.5 % (19-41); Mean Corp Hgb Conc 32.6 g/dL (32-36); Mean Corpuscular Hgb 30.7 pg (27.0-32.0); Mean Corpuscular Volume 94.1 fL (81-99); Mean Platelet Vol. 10.5 fl (6.2-12.0); Monocyte# 0.78 X10^3/uL; NRBC Flagged by Analyzer 0 % (0-5); Neutrophil # 4.45 X10^3/uL (2.7-7.7); Neutrophil % 51.3 % (47-70); Platelet Count 269 K/mm3 (150-450); RBC Distribution Width CV 13.2 % (11.6-14.6); RBC Distribution Width SD 45.1 fl (35.1-43.9); Red Blood Count 4.59 M/mm3 (4.2-5.4); White Blood Count 8.7 K/mm3 (4.4-11.0)
[2024-04-14 18:27] LABS: AST(SGOT) 21 U/L (15-37); Alanine Aminotransfer ALT/SGPT 24 U/L (13-56); Albumin, Serum 3.7 g/dL (3.2-5.0); Alkaline Phosphatase 52 U/L (45-117); Anion Gap 6 (5-15); BUN 45 mg/dL (7-18); Calcium,Total 9.5 mg/dL (8.5-10.1); Chloride 101 mmol/L (98-107); Creatinine, Serum 2.14 mg/dL (0.55-1.02); EST Glomerular Filtration Rate 24 mL/min (>60); Est Glom Filt Rate - Afr Amer 29 mL/min (>60); Globulin 3.8 g/dL (2.2-4.2); Glucose 161 mg/dL (74-106); Potassium 4.3 mmol/L (3.5-5.1); Protein, Total 7.5 g/dL (6.4-8.2); Sodium Level 135 mmol/L (136-145)
== END | disposition home or self-care (01) ==
LOC: MTLAB 14:00
PROVIDERS: PCP Internal Medicine; Referring Provider Internal Medicine Rheumatology; Visit Provider Internal Medicine Rheumatology
DX: L40.59 Other psoriatic arthropathy (principal); I50.9 Heart failure, unspecified; I11.0 Hypertensive heart disease with heart failure; E11.9 Type 2 diabetes mellitus without complications; M79.7 Fibromyalgia; M18.0 Bilateral primary osteoarthritis of first carpometacarpal joints; L40.8 Other psoriasis; K76.0 Fatty (change of) liver, not elsewhere classified; E78.5 Hyperlipidemia, unspecified; K57.90 Diverticulosis of intestine, part unspecified, without perforation or abscess without bleeding; I87.2 Venous insufficiency (chronic) (peripheral); Z79.899 Other long term (current) drug therapy
CPT/HCPCS: 36415; 80053; 85025

== ENCOUNTER → 2024-10-12 | Outpatient (CLI) | payer MEDICARE, OTHER, SELFPAY ==
[2024-10-12 15:44] LABS: Absolute Lymphocyte Count 2.61 X10^3/uL (0.83-4.51); Absolute Neutrophil Count 8.3 X10^3/uL (2.0-7.7); Basophil# 0.09 X10^3/uL; Basophil% 0.7 % (0-1); Eosinophil# 0.23 X10^3/uL; Eosinophils% 1.9 % (0-5); Hematocrit 40.6 % (37-47); Hemoglobin 13.4 g/dL (12.0-15.0); Lymphocyte # 2.61 X10^3/ul (0.83-4.51); Lymphocyte % 21.7 % (19-41); Mean Corpuscular Hgb 31.4 pg (27.0-32.0); Mean Corpuscular Volume 95.1 fL (81-99); Mean Platelet Vol. 10.8 fl (6.2-12.0); Monocyte# 0.79 X10^3/uL; Monocyte% 6.6 % (0-10); NRBC Flagged by Analyzer 0 % (0-5); Neutrophil # 8.25 X10^3/uL (2.7-7.7); Neutrophil % 68.5 % (47-70); Platelet Count 332 K/mm3 (150-450); RBC Distribution Width CV 12.9 % (11.6-14.6); RBC Distribution Width SD 45.3 fl (35.1-43.9); Red Blood Count 4.27 M/mm3 (4.2-5.4)
[2024-10-12 15:51] LABS: ALB/GLOB Ratio 0.8 RATIO (0.9-2.4); AST(SGOT) 16 U/L (15-37); Alanine Aminotransfer ALT/SGPT 21 U/L (13-56); Albumin, Serum 3.5 g/dL (3.2-5.0); Alkaline Phosphatase 57 U/L (45-117); Anion Gap 9 (5-15); BUN 47 mg/dL (7-18); Calcium,Total 9.6 mg/dL (8.5-10.1); Chloride 101 mmol/L (98-107); Creatinine, Serum 1.88 mg/dL (0.55-1.02); EST Glomerular Filtration Rate 28 mL/min (>60); Est Glom Filt Rate - Afr Amer 34 mL/min (>60); Globulin 4.2 g/dL (2.2-4.2); Glucose 167 mg/dL (74-106); Potassium 4.6 mmol/L (3.5-5.1); Protein, Total 7.7 g/dL (6.4-8.2); Sodium Level 135 mmol/L (136-145)
== END | disposition home or self-care (01) ==
LOC: MTLAB 13:25
PROVIDERS: PCP Internal Medicine; Referring Provider Internal Medicine Rheumatology; Visit Provider Internal Medicine Rheumatology
DX: L40.59 Other psoriatic arthropathy (principal); L40.8 Other psoriasis; K76.0 Fatty (change of) liver, not elsewhere classified; Z79.899 Other long term (current) drug therapy
CPT/HCPCS: 36415; 80053; 85025

== ENCOUNTER → 2024-12-31 | Outpatient (CLI) | payer MEDICARE, OTHER, SELFPAY ==
[2024-12-31 17:50] LABS: Absolute Lymphocyte Count 2.65 X10^3/uL (0.83-4.51); Absolute Neutrophil Count 5.5 X10^3/uL (2.0-7.7); Basophil# 0.08 X10^3/uL; Basophil% 0.9 % (0-1); Eosinophil# 0.41 X10^3/uL; Eosinophils% 4.5 % (0-5); Hematocrit 42.2 % (37-47); Hemoglobin 13.9 g/dL (12.0-15.0); Lymphocyte # 2.65 X10^3/ul (0.83-4.51); Mean Corp Hgb Conc 32.9 g/dL (32-36); Mean Corpuscular Hgb 31.4 pg (27.0-32.0); Mean Corpuscular Volume 95.5 fL (81-99); Mean Platelet Vol. 10.8 fl (6.2-12.0); Monocyte# 0.45 X10^3/uL; Monocyte% 4.9 % (0-10); NRBC Flagged by Analyzer 0 % (0-5); Neutrophil # 5.48 X10^3/uL (2.7-7.7); Neutrophil % 59.9 % (47-70); Platelet Count 302 K/mm3 (150-450); RBC Distribution Width SD 45.4 fl (35.1-43.9); Red Blood Count 4.42 M/mm3 (4.2-5.4); White Blood Count 9.1 K/mm3 (4.4-11.0)
[2024-12-31 18:06] LABS: ALB/GLOB Ratio 1.4 RATIO (0.9-2.4); AST(SGOT) 19 U/L (<=31); Alanine Aminotransfer ALT/SGPT 18 U/L (<=34); Albumin, Serum 4.2 g/dL (3.4-4.8); Alkaline Phosphatase 52 U/L (35-104); Anion Gap 11 (5-15); BUN 31 mg/dL (4-19); BUN/Creat Ratio 18.7 RATIO (10-20); Calcium,Total 9.6 mg/dL (7.6-11.0); Carbon Dioxide 24.7 mmol/L (21.0-32.0); Chloride 102 mmol/L (98-108); Creatinine, Serum 1.65 mg/dL (0.70-1.20); EST Glomerular Filtration Rate 33 (>60); Glucose 233 mg/dL (70-99); Potassium 4.8 mmol/L (3.3-5.1); Protein, Total 7.2 g/dL (5.9-8.4); Sodium Level 138 mmol/L (133-145); Total Bilirubin 0.33 mg/dL (0.00-1.30)
== END | disposition home or self-care (01) ==
LOC: MTLAB 14:15
PROVIDERS: PCP Internal Medicine; Referring Provider Internal Medicine Rheumatology; Visit Provider Internal Medicine Rheumatology
DX: L40.59 Other psoriatic arthropathy (principal); L40.8 Other psoriasis; K76.0 Fatty (change of) liver, not elsewhere classified; Z79.899 Other long term (current) drug therapy
CPT/HCPCS: 36415; 80053; 85025

== ENCOUNTER → 2025-02-09 | Outpatient (CLI) | payer MEDICARE, OTHER, SELFPAY ==
[2025-02-09 15:48] LABS: Absolute Lymphocyte Count 1.88 X10^3/uL (0.83-4.51); Basophil# 0.05 X10^3/uL; Basophil% 0.8 % (0-1); Hematocrit 42.5 % (37-47); Hemoglobin 13.9 g/dL (12.0-15.0); Lymphocyte # 1.88 X10^3/ul (0.83-4.51); Lymphocyte % 28.5 % (19-41); Mean Corp Hgb Conc 32.7 g/dL (32-36); Mean Corpuscular Hgb 31.6 pg (27.0-32.0); Mean Corpuscular Volume 96.6 fL (81-99); Monocyte# 0.45 X10^3/uL; Monocyte% 6.8 % (0-10); NRBC Flagged by Analyzer 0 % (0-5); Neutrophil # 3.98 X10^3/uL (2.7-7.7); Neutrophil % 60.4 % (47-70); Platelet Count 258 K/mm3 (150-450); RBC Distribution Width SD 46.3 fl (35.1-43.9); White Blood Count 6.6 K/mm3 (4.4-11.0)
[2025-02-09 17:07] LABS: Anion Gap 11 (5-15); BUN 38 mg/dL (4-19); BUN/Creat Ratio 19.4 RATIO (10-20); Calcium,Total 9.1 mg/dL (7.6-11.0); Carbon Dioxide 27.2 mmol/L (21.0-32.0); Chloride 101 mmol/L (98-108); Creatinine, Serum 1.93 mg/dL (0.70-1.20); EST Glomerular Filtration Rate 28 (>60); Glucose 220 mg/dL (70-99); Potassium 4.4 mmol/L (3.3-5.1); Pro- Brain NATRIURETIC PEPTIDE 116 pg/mL (<=900); Sodium Level 139 mmol/L (133-145)
== END | disposition home or self-care (01) ==
LOC: MTLAB 13:34
PROVIDERS: PCP Internal Medicine; Referring Provider Nurse Practitioner Family; Visit Provider Nurse Practitioner Family
DX: R42 Dizziness and giddiness (principal); I50.42 Chronic combined systolic (congestive) and diastolic (congestive) heart failure; R53.83 Other fatigue
CPT/HCPCS: 36415; 80048; 83880; 84443; 85025

== ENCOUNTER → 2025-03-02 | Outpatient (CLI) | payer MEDICARE, OTHER, SELFPAY ==
--- NOTE | 2025-03-02 13:40 | ECHOCS_ITS ---
Reason For Study Reason For Study: Dilated CM Procedure This was a 2D Doppler, Color Flow transthoracic echocardiogram. Contrast injection was performed. Exam performed in department. Left Ventricle Normal LV size. Mild concentric left ventricular hypertrophy. The left ventricular ejection fraction is 35 %. Stage 1 diastolic dysfunction. Apical wall motion abnormality may reflect pacemaker activation. Right Ventricle Normal RV size. ICD or pacer leads identified within the right ventricle. Normal systolic function. Atria Normal left atrium. Normal right atrium. Mitral Valve There is mild mitral annular calcification. Mild (1+) eccentric mitral valve insufficiency. Tricuspid Valve Normal tricuspid valve. Mild (1+) tricuspid valve insufficiency. Pulmonary artery systolic pressure is 32 mmHg. Aortic Valve Trisinus/trileaflet aortic valve. Pulmonic Valve Normal pulmonic valve. Great Vessels Normal aortic root. Pericardium/Pleural No pericardial effusion. Medication Diluted definity 2ml given slow IV push to enhance endocardial definition. MMode/2D Measurements & Calculations LVIDd: 4.7 cm IVSd: 1.3 cm Ao root diam: 3.3 cm LVIDs: 3.4 cm LVPWd: 1.2 cm RVDd: 3.6 cm FS: 25.8 % LAV(MOD-bp): 42.4 ml LVAd ap4: 31.7 cm2 LVAd ap2: 30.2 cm2 LAV(MOD-bp) Indexed: 20.0 ml/m2 LVLd ap4: 7.9 cm LVLd ap2: 7.6 cm LAV(MOD-sp2): 32.7 ml EDV(MOD-sp4): 105.6 ml EDV(MOD-sp2): 99.8 ml LAV(MOD-sp4): 51.4 ml EDV(sp4-el): 108.2 ml EDV(sp2-el): 102.1 ml LVAs ap4: 24.8 cm2 LVAs ap2: 23.2 cm2 LVLs ap4: 7.4 cm LVLs ap2: 7.6 cm ESV(MOD-sp4): 68.1 ml ESV(MOD-sp2): 59.7 ml ESV(sp4-el): 70.0 ml ESV(sp2-el): 60.6 ml EF(MOD-sp4): 35.6 % EF(MOD-sp2): 40.2 % EF(sp4-el): 35.3 % SV(MOD-sp4): 37.6 ml SV(MOD-sp2): 40.2 ml SV(sp4-el): 38.2 ml SI(MOD-sp4): 17.7 ml/m2 SI(MOD-sp2): 19.0 ml/m2 LA A4 area: 17.3 cm2 LA dimension(2D): 4.1 cm RA A4 area: 8.8 cm2 TAPSE: 1.6 cm Time Measurements MV dec time: 0.25 sec Doppler Measurements & Calculations MV E max [place]: 70.8 cm/sec Lat Peak E' [place]: 5.9 cm/sec Med Peak E' [place]: 4.3 cm/sec MV A max [place]: 105.9 cm/sec E/E' lat: 12.1 E/E' med: 16.5 MV E/A: 0.67 MV dec slope: 278.8 cm/sec2 Ao V2 max: 161.0 cm/sec LV V1 max: 123.3 cm/sec Ao max P.4 mmHg LV V1 max P.1 mmHg Ao V2 mean: 114.3 cm/sec LV V1 mean P.5 mmHg Ao mean P.0 mmHg LV V1 mean: 86.9 cm/sec Ao V2 VTI: 36.7 cm LV V1 VTI: 26.5 cm AV (velocity ratio): 0.72 PA V2 max: 119.6 cm/sec TR max [place]: 264.8 cm/sec TR max P.0 mmHg ECHO/Echo Complete W/ Contrast Interpretation Summary Normal LV size. Mild concentric left ventricular hypertrophy. The left ventricular ejection fraction is 35 %. Stage 1 diastolic dysfunction. Pulmonary artery systolic pressure is 32 mmHg. Apical wall motion abnormality may reflect pacemaker activation. Contrast injection was performed. Ordering Physician: Marcin Mason Referring Physician: Carli Almodovar Performed By: Vikki Mason, ZARA, RVT
--- NOTE | 2025-03-02 13:40 | CDU_ITS ---
Reason For Study Reason For Study: DIZZINESS Rt. Velocities/BP Lt. Velocities/BP Prox CCA 90.3/9.1 cm/sec. Prox CCA 102.1/18.1 cm/sec. Mid CCA 86.5/8.1 cm/sec. Mid CCA 113.1/23.6 cm/sec. Dist CCA 85.6/13.8 cm/sec. Dist CCA 98.4/12.6 cm/sec. Prox ICA 79.7/18.3 cm/sec. Prox ICA 92.0/18.3 cm/sec. Mid ICA 83.4/18.3 cm/sec. Mid ICA 78.5/19.5 cm/sec. Dist ICA 79.7/18.3 cm/sec. Dist ICA 101.8/22.0 cm/sec. Rt. ICA/CCA = 79.7/86.5=0.9. Lt. ICA/CCA = 113.1/101.8=1.1. Prox ECA 124.0/7.1 cm/sec. Prox ECA 93.0/7.1 cm/sec. Rt. Vert. 38.3/7.8 cm/sec. Lt. Vert. 67.911.2 cm/sec. Right Extracranial There is heterogeneous, irregular atherosclerotic plaque noted in the right common carotid artery. There is heterogeneous, irregular atherosclerotic plaque noted in the right internal carotid artery. There is homogeneous, smooth atherosclerotic plaque noted in the right external carotid artery. Antegrade flow is noted in the right vertebral artery. Left Extracranial There is homogeneous, smooth atherosclerotic plaque noted in the left common carotid artery. There is heterogeneous, irregular atherosclerotic plaque noted in the left internal carotid artery. There is heterogeneous, irregular atherosclerotic plaque noted in the left external carotid artery. Antegrade flow is noted in the left vertebral artery. Procedure Carotid Duplex [id number]. This is a Carotid Duplex examination using B-mode, color flow and specral Doppler. Exam performed in department. VL/Carotid Duplex Ultrasound Interpretation Summary Mild (<50%) stenosis right extracranial internal carotid. Mild (<50%) stenosis left extracranial internal carotid. Patent and antegrade vertebrals bilaterally. Ordering Physician: Marcin Mason Referring Physician: Carli Almodovar Performed By: Supriya Veliz RDCS, RVT
== END | disposition home or self-care (01) ==
LOC: CVS 13:38
PROVIDERS: PCP Internal Medicine; Referring Provider Nurse Practitioner Family; Visit Provider Nurse Practitioner Family
DX: R42 Dizziness and giddiness (principal); I42.8 Other cardiomyopathies; I10 Essential (primary) hypertension; E78.5 Hyperlipidemia, unspecified
CPT/HCPCS: 93306; 93880; Q9957; A4216; C8929

== ENCOUNTER → 2025-03-25 | Outpatient (CLI) | payer MEDICARE, OTHER, SELFPAY ==
[2025-03-25 12:35] LABS: Hematocrit 41.4 % (37-47); Hemoglobin 13.5 g/dL (12.0-15.0); Immature Granulocytes Count 0.040 X10^3/uL (0.0-0.0); Mean Corp Hgb Conc 32.6 g/dL (32-36); Mean Corpuscular Volume 98.1 fL (81-99); Mean Platelet Vol. 10.7 fl (6.2-12.0); NRBC Flagged by Analyzer 0 % (0-5); Platelet Count 254 K/mm3 (150-450); RBC Distribution Width CV 12.9 % (11.6-14.6); RBC Distribution Width SD 45.7 fl (35.1-43.9); Red Blood Count 4.22 M/mm3 (4.2-5.4); White Blood Count 8.9 K/mm3 (4.4-11.0)
[2025-03-25 16:21] LABS: AST(SGOT) 18 U/L (<=31); Alanine Aminotransfer ALT/SGPT 17 U/L (<=34); Albumin, Serum 4.1 g/dL (3.4-4.8); Alkaline Phosphatase 50 U/L (35-104); Anion Gap 13 (5-15); BUN 63 mg/dL (4-19); BUN/Creat Ratio 25.3 RATIO (10-20); Calcium,Total 8.9 mg/dL (7.6-11.0); Carbon Dioxide 28.1 mmol/L (21.0-32.0); Chloride 100 mmol/L (98-108); Globulin 2.8 g/dL (2.2-4.2); Glucose 133 mg/dL (70-99); Potassium 4.6 mmol/L (3.3-5.1)
== END | disposition home or self-care (01) ==
LOC: MTLAB 11:19
PROVIDERS: PCP Internal Medicine; Referring Provider Internal Medicine Rheumatology; Visit Provider Internal Medicine Rheumatology
DX: L40.59 Other psoriatic arthropathy (principal); M79.7 Fibromyalgia; R79.89 Other specified abnormal findings of blood chemistry; Z79.899 Other long term (current) drug therapy
CPT/HCPCS: 36415; 80053; 85025

== ENCOUNTER → 2025-05-17 | Outpatient (CLI) | payer MEDICARE, OTHER, SELFPAY ==
--- NOTE | 2025-05-17 13:49 | ECHOLC_ITS ---
Reason For Study : Evaluate LVF post medication change Procedure This was a limited 2D transthoracic echocardiogram. Contrast injection was performed. Exam performed in department. Left Ventricle Normal LV size. Mild concentric left ventricular hypertrophy. The left ventricular ejection fraction is 40 %. Septal motion consistent with bundle branch block. There is mild to moderate global hypokinesis of the left ventricle. Right Ventricle Normal RV size. Normal systolic function. Atria Normal left atrium. Normal right atrium. Tricuspid Valve Normal tricuspid valve. Mild tricuspid valve insufficiency. Pulmonary artery systolic pressure is 27 mmHg. Great Vessels Normal sized aortic root. Pericardium/Pleural Trivial pericardial effusion. Medication 22 gauge I.V. with prn adaptor inserted into right arm. Diluted definity 2ml given slow IV push to enhance endocardial definition. MMode/2D Measurements & Calculations LVIDd: 4.4 cm IVSd: 1.3 cm LVAd ap4: 36.8 cm2 LVIDs: 3.5 cm LVPWd: 1.2 cm LVLd ap4: 8.6 cm FS: 20.2 % EDV(MOD-sp4): 133.9 ml EDV(sp4-el): 133.8 ml LVAs ap4: 28.6 cm2 LVLs ap4: 8.1 cm ESV(MOD-sp4): 84.2 ml ESV(sp4-el): 85.2 ml EF(MOD-sp4): 37.1 % EF(sp4-el): 36.3 % SV(MOD-sp4): 49.7 ml SV(MOD-sp2): 51.2 ml LVAd ap2: 35.6 cm2 LVLd ap2: 8.6 cm SI(MOD-sp4): 23.7 ml/m2 SI(MOD-sp2): 24.4 ml/m2 EDV(MOD-sp2): 124.7 ml EDV(sp2-el): 125.7 ml LVAs ap2: 25.7 cm2 LVLs ap2: 8.0 cm ESV(MOD-sp2): 73.6 ml ESV(sp2-el): 69.8 ml EF(MOD-sp2): 41.0 % SV(sp4-el): 48.6 ml Doppler Measurements & Calculations TR max rishabh: 243.1 cm/sec TR max P.7 mmHg ECHO/Echo Limited w/Contrast Interpretation Summary Normal LV size. The left ventricular ejection fraction is 40 %. There is mild to moderate global hypokinesis of the left ventricle. Septal motion consistent with bundle branch block. Pulmonary artery systolic pressure is 27 mmHg. Compared to previous study, the left ventricular systolic function has improved .. Contrast injection was performed. Compared to previous study, the left ventricu lar systolic function has improved.. Ordering Physician: Marcin Mason Referring Physician: Marcin Mason Performed By: Rich Guillen RCS
== END | disposition home or self-care (01) ==
LOC: CVS 13:48
PROVIDERS: PCP Internal Medicine; Referring Provider Nurse Practitioner Family; Visit Provider Nurse Practitioner Family
DX: I42.8 Other cardiomyopathies (principal)
CPT/HCPCS: 93308; Q9957; A4216; C8924

== ENCOUNTER → 2025-07-05 | Outpatient (CLI) | payer MEDICARE, OTHER, SELFPAY ==
[2025-07-05 15:13] LABS: Hematocrit 41.4 % (37-47); Hemoglobin 14.0 g/dL (12.0-15.0); Immature Granulocytes Count 0.080 X10^3/uL (0.0-0.0); Mean Corp Hgb Conc 33.8 g/dL (32-36); Mean Corpuscular Volume 93.9 fL (81-99); Mean Platelet Vol. 10.7 fl (6.2-12.0); NRBC Flagged by Analyzer 0 % (0-5); Platelet Count 311 K/mm3 (150-450); RBC Distribution Width CV 12.4 % (11.6-14.6); RBC Distribution Width SD 43.0 fl (35.1-43.9); Red Blood Count 4.41 M/mm3 (4.2-5.4); White Blood Count 10.8 K/mm3 (4.4-11.0)
[2025-07-05 15:42] LABS: AST(SGOT) 18 U/L (<=31); Alanine Aminotransfer ALT/SGPT 13 U/L (<=34); Albumin, Serum 4.3 g/dL (3.4-4.8); Alkaline Phosphatase 48 U/L (35-104); Anion Gap 15 (5-15); BUN 46 mg/dL (4-19); BUN/Creat Ratio 21.4 RATIO (10-20); Calcium,Total 10.1 mg/dL (7.6-11.0); Carbon Dioxide 25.2 mmol/L (21.0-32.0); Chloride 99 mmol/L (98-108); Globulin 3.1 g/dL (2.2-4.2); Glucose 181 mg/dL (70-99); Potassium 4.3 mmol/L (3.3-5.1)
== END | disposition home or self-care (01) ==
LOC: MTLAB 13:18
PROVIDERS: PCP Internal Medicine; Referring Provider Internal Medicine Rheumatology; Visit Provider Internal Medicine Rheumatology
DX: L40.59 Other psoriatic arthropathy (principal); M79.7 Fibromyalgia; M18.0 Bilateral primary osteoarthritis of first carpometacarpal joints; Z79.899 Other long term (current) drug therapy
CPT/HCPCS: 36415; 80053; 85025